=== PATIENT | male | born 1980 | race African-American/Black ===

== ENCOUNTER 2017-07-20 22:25 | Emergency (ER) | payer MEDICAID, OTHER ==
--- NOTE | 2017-07-20 22:30 | NUR ---
CALLED PT, NO RESPONSE
--- NOTE | 2017-07-20 23:30 | NUR ---
CALLED PT, NO RESPONSE
--- NOTE | 2017-07-21 | NUR ---
CALLED PT, NO RESPONSE
--- NOTE | 2017-07-21 00:18 | NUR ---
CALLED PT, NO RESPONSE
--- NOTE | 2017-07-21 00:22 | NUR ---
PATIENT STATES HE DOESNT NOT WANT TO BE SEEN BY OUR ER, AND DOESNT NOT WANT MEDICAL TREATMENT. PT WAS THEN ASKED TO LEAVE [facility] ED.
== END 2017-07-21 00:26 | disposition left against medical advice (07) ==
LOC: ER 22:27
DX: Z53.21 Procedure and treatment not carried out due to patient leaving prior to being seen by health care provider (principal)

== ENCOUNTER 2017-07-21 00:32 | Emergency (ER) | payer MEDICAID, OTHER ==
[~2017-07-21] VITALS: Ht 170.2 cm; Wt 77.1 kg
[2017-07-21] MEDS ORDERED: ACETAMINOPHEN ES 500 MG TABLET ONE (00:38)
[2017-07-21 00:57] VITALS: BP 135/78
[2017-07-21] MEDS ORDERED: ACETAMINOPHEN 325 MG TABLET PO ONE (01:00)
== END 2017-07-21 01:00 | disposition home or self-care (01) ==
LOC: ER 00:36
DX: G89.29 Other chronic pain (principal); F32.9 Major depressive disorder, single episode, unspecified; F41.9 Anxiety disorder, unspecified; Z59.0 Homelessness
CPT/HCPCS: 99282; A4606; Z7610

== ENCOUNTER 2018-01-21 12:03 | Inpatient (IN) | payer MEDICAID ==
[~2018-01-21] VITALS: Ht 165.1 cm; Wt 66.2 kg
--- NOTE | 2018-01-21 12:05 | NUR ---
ADIN Vera FROM [facility] FOR TAKING HALF BOTTLE OF BOTH SEROQUEL AND DILANTIN, +SI, -HI. NAD NOTED, VSS, RESP EVEN AND UNLABORED, PT WAS PUT ON MONITOR. WAITING FOR MD MATTSON.
[2018-01-21] MEDS ORDERED: ACTIVATED CHARCOAL 25 GM/120 ML TUBE ONE ×2 (12:12→12:17)
[2018-01-21 12:30] LABS: BASOPHILS # (AUTO) 0.1 /CMM (0.0-0.2); BASOPHILS % (AUTO) 2.4 % (0.0-2.0); EOSINOPHILS % (AUTO) 1.1 % (0.0-6.0); HEMATOCRIT 36 % (39-51); LYMPHOCYTES # (AUTO) 1.2 /CMM (0.8-4.8); LYMPHOCYTES % (AUTO) 35.6 % (20.0-44.0); MEAN CORPUSCULAR HEMOGLOBIN 28 PG (26.0-33.0); MEAN CORPUSCULAR HGB CONC 34 g/dl (31.0-36.0); MEAN CORPUSCULAR VOLUME 84 fL (80-96); MONOCYTES # (AUTO) 0.5 /CMM (0.1-1.30); MONOCYTES % (AUTO) 15.8 % (2.0-12.0); NEUTROPHILS # (AUTO) 1.5 /CMM (1.8-8.9); NEUTROPHILS % (AUTO) 45.1 % (43.0-81.0); PLATELET COUNT (AUTO) 313 /CMM (150-450); RDW COEFFICIENT OF VARIATION 13.5 (11.5-15.0); RED BLOOD CELL COUNT(AUTO) 4.26 MIL/uL (4.5-6.0); WHITE BLOOD COUNT (AUTO) 3.3 K/uL (4.3-11.0)
[2018-01-21] MEDS ORDERED: IV NS 0.9% 1,000 ML BAG IV ONE (12:30)
[2018-01-21] MEDS ORDERED: ACTIVATED CHARCOAL 25 GM/120 ML TUBE PO ONE (12:30)
[2018-01-21] MEDS ORDERED: PHEN100C4 PO (12:35)
[2018-01-21 12:45] LABS: INR 1.01 (0.85-1.15)
[2018-01-21 12:47] LABS: CALCIUM, SERUM 8.6 mg/dL (8.5-10.1); CARBON DIOXIDE 27 mmol/L (21-32); CHLORIDE 103 mmol/L (98-107); GLUCOSE 105 mg/dL (74-106); POTASSIUM 4.1 mmol/L (3.5-5.1); SODIUM SERUM 136 mmol/L (136-145); UREA NITROGEN, BLOOD 13 mg/dL (7-18)
[2018-01-21 12:53] LABS: ALANINE AMINOTRANSFERASE 21 U/L (12-78); ALBUMIN 3.3 g/dL (3.4-5.0); ALCOHOL, BLOOD < 3 mg/dL (0-0); ALKALINE PHOSPHATASE 60 U/L (46-116); ASPARTATE AMINOTRANSFERASE 15 U/L (15-37); BILIRUBIN,DIRECT 0.1 mg/dL (0.0-0.2); BILIRUBIN,TOTAL 0.2 mg/dL (0.2-1.0); SALICYLATE 2.8 mg/dL (2.8-20.0)
[2018-01-21 12:54] LABS: ACETAMINOPHEN < 10 ug/ml (10-30)
[2018-01-21 13:06] LABS: PHENYTOIN (DILANTIN) 2.5 ug/ml (10.0-20.0)
--- NOTE | 2018-01-21 13:19 | NUR ---
PT WILL TRY TO GIVE URINE SAMPLE AFTER IV FLUID HAS BEEN INFUSED, IN 15 MINS.
--- NOTE | 2018-01-21 13:33 | NUR ---
URINE COLLECTED SENT TO LAB
[2018-01-21 13:59] LABS: MAGNESIUM 1.8 mg/dL (1.8-2.4)
[2018-01-21] MEDS ORDERED: Z GUARD REMEDY 2 OZ OINT TP PRN (14:30)
[2018-01-21] MEDS ORDERED: ACETAMINOPHEN 325 MG TABLET PO PRN (14:30)
[2018-01-21] MEDS ORDERED: MAG HYDROX/AL HYDROX/SIMETH 30 ML UDC PO PRN (14:30)
[2018-01-21] MEDS ORDERED: ONDANSETRON HCL/PF 4 MG/2 ML VIAL IVP PRN (14:30)
[2018-01-21] MEDS ORDERED: MAGNESIUM HYDROXIDE 30 ML UDC PO PRN (14:30)
[2018-01-21 14:31] LABS: APPEARANCE,URINE Clear (CLEAR); BILIRUBIN,URINE Negative (NEGATIVE); BLOOD, URINE Negative Ery/uL (NEGATIVE); COLOR,URINE Yellow (YELLOW); KETONES,URINE Negative (NEGATIVE); LEUKOCYTE ESTERASE ,URINE Negative (NEGATIVE); NITRITE, URINE Negative (NEGATIVE); PROTEIN,URINE Negative (NEGATIVE); UGLUCOSE Negative (NEGATIVE); UROBILINOGEN,URINE 0.2 EU/dL (0.2)
--- NOTE | 2018-01-21 15:00 | NUR ---
RN/AMY REPORT ER RECEIVED REPORT FROM ER NURSE REYMUNDO ,UNDER THE CARE OF DEBBI AYON NP. ASSIGNED RESIDENT TO ROOM 113-1,WAITING TO RECEIVE THE RESIDENT
--- NOTE | 2018-01-21 15:30 | NUR ---
RN RESIDENT ADMISSION NOTES RECEIVE RESIDENT FROM ER IN BED,ABLE TO WALK WITH ASSISTANCE TO THE ROOM .RESIDENT IS LETHARGIC AND AWAKE,NOT ORIENTED TO HIMSELF AND THE SURROUNDINGS,RESIDENT IS ON ROOM AIR WITH SATURATION OF 99%. ON TELEMONITOR WITH SINUS RHYTHM OF 78 HR.IV LINE FLUSHED , PATENT. NO SIGNS OF INFECTION OR INFILTRATION NOTICED.RESPIRATION IS EVEN AND NON LABORED.PATIENT IS NPO STATUS AT THIS TIME.AWAITING FOR ADMITTING ORDERS.SAFETY MAINTAINED.CONTINUOUS MONITORING.CALL LIGHT IN REACH.
[2018-01-21 16:00] VITALS: BP 92/50
[2018-01-21] MEDS: IV D5/0.45 NACL 1,000 ML IV PRN (16:04)
--- NOTE | 2018-01-21 19:14 | NUR ---
TD/RN AM SHIFT END NOTES PATIENT IS MORE ALERT THAN WHEN HE WAS ADMITTED THIS AFTERNOON,WITH PERIODS OF CONFUSION.NO ACUTE CHANGE OF CONDITION.ONGOING IV THERAPY WITH D5 1/2 NS WITH 75CC/HR.IV LINE IS PATENT AND INTACT WITH NO SIGNS AND SYMPTOMS OF INFILTRATION.ON TELE MONITOR WITH NORMAL SINUS RHYTHM. ALL NEEDS MET. PATIENT IS ENDORSED TO PM NURSE TO CONTINUE CARE.SAFETY MAINTAINED ,BED ALARM IS ON,CALL LIGHT WITH IN REACHED.
--- NOTE | 2018-01-21 19:30 | NUR ---
AMY/RN NOTES: RECEIVED PT. IN BED SLEEPING W/ RESPIRATION EVEN AND UNLABORED. RA SAT. 96%. EASILY AROUSABLE TO NAME. ON 1:1 SITTER. ON TELE MONITOR W/ SR @ 86. PT. IS NPO STATUS. LFA G 20 PATENT AND INTACT W/ NO S/S OF INFECTION/INFILTRATION NOTED. HAS IVF OF D5 1/2 @ 75 CC/ HR. USES URINAL. CALL LIGHT W/REACH. BED ALARM ON. WILL CONTINUE TO MONITOR.
[2018-01-21 20:00] VITALS: BP 105/69
[2018-01-22] VITALS: BP 101/56
[2018-01-22 04:00] VITALS: BP 99/61
[2018-01-22] MEDS: IV D5/0.45 NACL 1,000 ML IV PRN (05:08)
[2018-01-22 05:12] LABS: BASOPHILS % (AUTO) 0.8 % (0.0-2.0); EOSINOPHILS % (AUTO) 1.1 % (0.0-6.0); HEMATOCRIT 34 % (39-51); HEMOGLOBIN 11.7 g/dL (13.5-17.5); LYMPHOCYTES # (AUTO) 1.7 /CMM (0.8-4.8); LYMPHOCYTES % (AUTO) 40.6 % (20.0-44.0); MEAN CORPUSCULAR HEMOGLOBIN 29 PG (26.0-33.0); MEAN CORPUSCULAR HGB CONC 34 g/dl (31.0-36.0); MEAN CORPUSCULAR VOLUME 84 fL (80-96); MONOCYTES # (AUTO) 0.6 /CMM (0.1-1.30); MONOCYTES % (AUTO) 14.6 % (2.0-12.0); NEUTROPHILS # (AUTO) 1.8 /CMM (1.8-8.9); NEUTROPHILS % (AUTO) 42.9 % (43.0-81.0); PLATELET COUNT (AUTO) 331 /CMM (150-450); RED BLOOD CELL COUNT(AUTO) 4.07 MIL/uL (4.5-6.0); WHITE BLOOD COUNT (AUTO) 4.3 K/uL (4.3-11.0)
[2018-01-22 05:26] LABS: CALCIUM, SERUM 7.7 mg/dL (8.5-10.1); MAGNESIUM 1.7 mg/dL (1.8-2.4); PHOSPHORUS 2.8 mg/dL (2.5-4.9); POTASSIUM 3.9 mmol/L (3.5-5.1)
--- NOTE | 2018-01-22 07:00 | NUR ---
RN NOTES RECEIVED PT ON BED, A/Ox1, ON RA , RESPIRATION EVEN AND ULBORED, ON TELE HR IN 80'S , NPO THIS AM , D51/2 NS AT 75CC/HR RUNNING VIA LFA IV SITE G 20 , SITTER AT THE BEDSIDE FOR SAFETY PRECAUTION, SR UP x3, CALL LIGHT WITHIN EASY REACH, BED LOCKED AND IN LOWEST POSITION , CONTINUE TO MONITOR.
--- NOTE | 2018-01-22 07:25 | NUR ---
RN/AMY NOTES: NOT IN ANY ACUTE RESPIRATORY DISTRESS. REPORT GIVEN TO AM NURSE FOR THERESA.
[2018-01-22 08:00] VITALS: BP 129/91
[2018-01-22] MEDS: PANTOPRAZOLE 40 MG TABLET.DR PO SCH (08:19)
[2018-01-22] MEDS ORDERED: Magnesium 1GM/D5W 100ML PREMIX 100 ML IV SCH (09:50)
[2018-01-22] MEDS: NICOTINE PATCH (7MG) 7 MG PATCH.TD24 TD SCH (10:00)
--- NOTE | 2018-01-22 10:30 | NUR ---
RN NOTES PT WANTS TO GO OUT TO SMOKE , STATED WILL LEAVE AMA IF HE DOES SMOKE, PT IS VERY AGITATED. CHELLE CASE MANAGEMENT DIRECTOR NOTIFIED, NICOTINE PATCH ORDERED . PT REFUSED NICOTINE PATCH, AND STILL WANTS TO GO OUT AND SMOKE, PT SIGNED AMA FORM AND WANTS IV SITE TO BE REMOVED, ADVISED AND EDUCATED PT REGARDING THE HOSPITAL SMOKING POLICY AND HOW IMPORTANT IS TO FOLLOW THE PLAN OF CARE . PT STILL WANTS TO LEAVE AMA. AMA FORM SIGNED BY PT .
--- NOTE | 2018-01-22 10:45 | NUR ---
RN NOTES IV SITE D/HENRI, PT PLACED ON 5150 HOLD AND AT THIS TIME , SITTER AT THE BEDSIDE FOR SAFETY PRECAUTION , CONTINUE TO MONITOR.
[2018-01-22] MEDS ORDERED: MAGNESIUM OXIDE 400 MG TABLET PO ONE (11:30)
--- NOTE | 2018-01-22 11:45 | NUR ---
SEEN BY ,MADE AWARE THAT PATIENT SEEN BY CRISIS TEAM .ADVISED TO CONTINUE THE HOLD AND WILL TRANSFER TO OTHER HOSPITAL LATER.
[2018-01-22 16:00] VITALS: BP 131/92
--- NOTE | 2018-01-22 16:26 | NUR ---
Per report patient is homeless and has no family or relatives contact. Patient is ambulatory and independent with adl's.He is currently on 5150 for suicidal ideation. Plan for BHU placement once medically clear. Addendum: 01/22/18 at 1626 by MIRANDA PAINTER RN Amended: Links added.
--- NOTE | 2018-01-22 17:45 | NUR ---
RN NOTE SMOKING CONSENT WAIVER SIGNED AND PLACED ON THE CHART ,PT WANTS TO GO OUT TO SMOKE , PT LEFT THE FLOOR TO PATIO TO SMOKE ACCOMPANIED BY SECURITY SARMIENTO AND ABBE AT THIS TIME .
--- NOTE | 2018-01-22 18:00 | NUR ---
RN NOTES PT BACK IN THE ROOM , SITTER AT THE BEDSIDE, NO DISTRESS NOTED.
--- NOTE | 2018-01-22 18:00 | NUR ---
PT. MEDICALLY CLEAR BUT NO PLACEMENT YET PER CRISIS TEAM,AWAITS [facility] PER CLIFFORD.DR. MAYO NOTIFIED WANTS TO CONTINUE HOLD.CM AWARE.PT. W/ SITTER PER PROTOCOL.
--- NOTE | 2018-01-22 19:00 | NUR ---
MS RN NOTES RECEIVE PT IN BED A/O X 1-2, NO S/S OF DISTRESS, STABLE, SAFETY MEASURES IN PLACE, CALL LIGHT WITHIN REACH, WILL CONTINUE TO MONITOR
[2018-01-22 20:00] VITALS: BP 128/74
[2018-01-23 04:00] VITALS: BP 150/74
--- NOTE | 2018-01-23 06:13 | NUR ---
MS RN CLOSING pt asleep and easily awaken, pt alert and oriented for time, place, person and situation. no seizure activity noted throughout the shift. Thought process linear. flat affect. guarded affect . he denies any hallucinations or delusions now. pt stable not in distress, kept clean and dry and comfort patient has 1:1 sitter at bedside, respirations even and unlabored. nursing care rendered, needs attended and anticipated. on low bed to ensure safety, safety measures in place will endorse to the next shift continuity of care.
--- NOTE | 2018-01-23 07:27 | NUR ---
MS RN OPENING NOTE PATIENT IS ALERT AND ORIENTED X2. NO PAIN AT THIS TIME. NO SOB OR DISTRESS NOTED. ON ROOM AIR AT 97% TOLERATING WELL. ABLE TO COMMUNICATE NEEDS. ON ROOM AIR AT 97% TOLERATING WELL. ON 5150 HOLD EFFECTIVE JANUARY 22, 2018 AT 11:59. AWAITING PLACEMENT. SITTER AT BEDSIDE FOR SAFETY. WILL CONTINUE TO MONITOR THROUGHOUT SHIFT
[2018-01-23] MEDS: PANTOPRAZOLE 40 MG TABLET.DR PO SCH (07:30)
[2018-01-23 08:00] VITALS: BP 115/77
[2018-01-23] MEDS: NICOTINE PATCH (7MG) 7 MG PATCH.TD24 TD SCH (08:30)
[2018-01-23] MEDS: QUETIAPINE FUMARATE 100 MG TABLET PO SCH ×4 (12:45→21:00)
[2018-01-23 16:00] VITALS: BP 114/62
--- NOTE | 2018-01-23 16:47 | NUR ---
MS RN NOTE SPOKE WITH ASHWIN, PHARMACY IN REGARDS TO SEROQUEL DOSE LAST GIVEN AT 1245. TIME TO BE CHANGED. 1700 DOSE NOT GIVEN DUE TO LAST TIME GIVEN. WILL INFORM CHARGE NURSE
--- NOTE | 2018-01-23 18:45 | NUR ---
MS RN CLOSING NOTE PATIENT SHOWERING AT THIS TIME. NO FACIAL GRIMACING NOTED. NO SOB OR DISTRESS NOTED PRIOR TO SHOWER. ALL DUE MEDICATIONS GIVEN ORDERED. ALL NURSING CARE NEEDS ATTENDED TO NEEDED. ABLE TO COMMUNICATE NEEDS. NO IV ACCESS. SITTER AT BEDSIDE FOR ASSISTANCE. ON 5150 HOLD. AWAITING PSYCH PLACEMENT. WILL HAVE LABS TOMORROW. WILL ENDORSE TO RESEARCH TECHNICIAN NURSE FOR THERESA
--- NOTE | 2018-01-23 19:43 | NUR ---
MS RN NOTE RECEIVED IN BED A/O X 3, TALKING TO HIMSELF. NO AGITATION OR DISCOMFORT NOTED. DENIES PAIN. PT HAS NO IV ACCESS. SITTER AT BED SIDE. SIDE RAILS UP X 2 AND CALL LIGHT WITHIN REACH. VSS. CONTINUE TO MONITOR HIM.
[2018-01-23 20:00] VITALS: BP 127/79
--- NOTE | 2018-01-23 21:30 | NUR ---
MS RN NOTE PT REFUSED SEROQUEL 100 MG PO, STATES I WAS OVERDOSES ON THIS MED SO I STILL HAVE IN ME. TRIED X 3.
[2018-01-24 04:00] VITALS: BP 114/69
--- NOTE | 2018-01-24 06:27 | NUR ---
MS RN NOTE PT IN BED ASLEEP, NO DISTRESS OR DISCOMFORT NOTED. ALL NEEDS ATTENDED. SIDE RIALS UP X 3 AND CALL LIGHT WITHIN REACH. SITTER AT BED SIDE. WILL ENDORSE TO DAY SHIFT NURSE FOR CONTINUE TO CARE.
--- NOTE | 2018-01-24 07:10 | NUR ---
ms rn initial notes Received patient in bed, asleep, head of bed elevated, no SOB or distress noted, on room air and tolerated well. Sitter at bedside for constant monitoring. No IV access MD aware. on 5150 hold. Alert and oriented x 3, verbally responsive and able to make needs known. No unusal behavior at this time. Call light with in patient reach, will continue to monitor accordingly.
[2018-01-24] MEDS: PANTOPRAZOLE 40 MG TABLET.DR PO SCH (07:50)
[2018-01-24 08:00] VITALS: BP 139/97
[2018-01-24] MEDS: QUETIAPINE FUMARATE 100 MG TABLET PO SCH ×3 (09:12→21:59)
[2018-01-24] MEDS: NICOTINE PATCH (7MG) 7 MG PATCH.TD24 TD SCH (09:12)
[2018-01-24 12:00] VITALS: BP 124/81
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
[2018-01-24 16:00] VITALS: BP 121/78
--- NOTE | 2018-01-24 19:10 | NUR ---
ms rn closing notes All needs provided, attended, and anticipated. Sitter at bedside for constant monitoring. In stable condition. Endorsed to next shift RN to continue care.
--- NOTE | 2018-01-24 20:00 | NUR ---
MS RN NOTE RECEIVED PT IN BED SITTING UP, A/O X 2-3, NO SOB, NO DISTRESS OR DISCOMFORT NOTED. DENIES SI AT THIS TIME. PT IS CALM AND COOPERATIVE. PT IS REFUSING SEROQUEL MEDS. ALL NEEDS ATTENDED. SITTER AT BED SIDE. SIDE RAILS UP X 2 AND CALL LIGHT WITHIN REACH. VSS. CONTINUE TO MONITOR HIM CLOSELY.
--- NOTE | 2018-01-24 21:24 | NUR ---
MS RN NOTE PT IN BED FALLING ASLEEP, REFUSED SEROQUEL MED. SITTER AT BED SIDE.
--- NOTE | 2018-01-24 22:01 | NUR ---
MS RN NOTE FINALLY PT TOOK SEROQUEL 200 MG PO.
--- NOTE | 2018-01-25 02:15 | NUR ---
MS RN NOTE REPORT GIVEN TO NURSE OREILLY FOR CONTINUE TO CARE.
--- NOTE | 2018-01-25 02:20 | NUR ---
RN NOTES RECEIVED REPORT FROM ANTOINE. NO APPARENT S/S OF PAIN, DISTRESS OR SOB AT THIS TIME. 1:1 SITTER AT BEDSIDE. SAFETY PRECAUTIONS IN PLACE WILL CONTINUE TO MONITOR.
--- NOTE | 2018-01-25 06:40 | NUR ---
RN CLOSING NOTES PT RESTING IN BED. 1:1 SITTER AT BEDSIDE. PT ON A 5150 HOLD. PT HAS NO IV ACCESS. MD AWARE. NO COMPLAINTS OF SOB, DISTRESS OR PAIN DURING SHIFT. SAFETY PRECAUTIONS IN PLACE. BED IN LOWEST LOCKED POSITION, X2 SIDERAILS ARE UP, AND CALL LIGHT WITHIN REACH. WILL ENDORSE TO DAY SHIFT NURSE FOR CONTINUITY OF CARE.
[2018-01-25] MEDS: PANTOPRAZOLE 40 MG TABLET.DR PO SCH (07:30)
[2018-01-25 08:00] VITALS: BP 115/75
--- NOTE | 2018-01-25 08:00 | NUR ---
ms rn received on bed,awake,alert,oriented x4.not in any form of distress, respirations even and unlabored,no sob noted, lungs are clear,abdomen soft,positive bowel sounds, denies pain at this time, will monitor patient.
[2018-01-25] MEDS: NICOTINE PATCH (7MG) 7 MG PATCH.TD24 TD SCH (09:00)
[2018-01-25] MEDS: QUETIAPINE FUMARATE 100 MG TABLET PO SCH ×2 (09:18→22:21)
--- NOTE | 2018-01-25 11:33 | NUR ---
BRITTON contacted [facility] intake dept and spoke to Flower who informed they had no beds available at this time. BRITTON then contacted [facility] and spoke to Dre who informed they had no beds available at this time. BRITTON contacted Dr. Ayala to assist with possible placement at [facility]. Dr. Ayala informed BRITTON to contact Chichi at [facility]. BRITTON call Chichi in intake and was informed by her to fax clinicals. She informed they have no beds at this time but will be having a few discharges later this afternoon. BRITTON faxed clinicals to Chichi in intake at .
[2018-01-25] MEDS ORDERED: MAGNESIUM OXIDE 400 MG TABLET PO ONE (15:30)
--- NOTE | 2018-01-25 15:30 | NUR ---
BRITTON received a call from Chichi in intake from [facility] informing BRITTON that their director wants to wait till we have a PC hearing to accept the pt. BRITTON had called [facility]ORIE Ford this am requesting for a PC hearing. LORIE Ford stated she will follow up and contact AMY. BRITTON gave her pt's name and room number. BRITTON spoke to Flip in intake at [facility] and faxed clinicals per his request.
[2018-01-25 16:00] VITALS: BP 117/68
--- NOTE | 2018-01-25 17:51 | NUR ---
PATIENT AWAKE,ALERT,VSS,NO SEIZURE ACTIVITY.
--- NOTE | 2018-01-25 18:50 | NUR ---
ms rn on bed,no change of condition.
[2018-01-25 20:00] VITALS: BP 117/84
--- NOTE | 2018-01-25 20:00 | NUR ---
ms/rn notes PATIENT WITH SITTER, RESTING IN BED, AWAKE, ALERT X3, ABLE TO VERBALIZE NEEDS, RESPIRATIONS EVEN AND UNLABORED, BED IN LOCK POSITION, SKIN INTACT AND DRY, WILL MONITOR. RECEIVED ENDORSEMENT FROM AM RN FOR THERESA.
[2018-01-26] MEDS ORDERED: PHENYTOIN EXTENDED RELEASE 100 MG CAPSULE PO SCH (05:00)
--- NOTE | 2018-01-26 06:45 | NUR ---
MS/RN NOTES PATIENT IN BED, ALERT, ORIENTED X3, ABLE TO VERBALIZE NEEDS, ABLE TO SLEEP DURING THE NIGHT, REQUIRE A SITTER TO MONITOR FOR SELF HARM , NON COMPLIANT AT TIMES AND REQUIRE FREQUENT REMINDERS ABOUT BENEFIT AND RISKS OF MEDICATION COMPLIANCE, WILL ENDORSE TO AM RN FOR THERESA. BED IN LOCK POSITION, CALL LIGHTS WITHIN REACH.
--- NOTE | 2018-01-26 07:10 | NUR ---
MS RN NOTES RECEIVED PATIENT IN BED, ALERT ORIENTED X4, SITTER AT BEDSIDE. NO ACUTE DISTRESS NOTED. BREATHING UNLABORED. DENIED ANY PAIN. NO SUICIDAL IDEATION. SAFETY MEASURES IN PLACE. CALL LIGHT WITHIN REACH. WILL CONTINUE TO MONITOR ACCORDINGLY.
[2018-01-26] MEDS: PANTOPRAZOLE 40 MG TABLET.DR PO SCH (07:30)
[2018-01-26] MEDS: QUETIAPINE FUMARATE 100 MG TABLET PO SCH (08:10)
[2018-01-26] MEDS: NICOTINE PATCH (7MG) 7 MG PATCH.TD24 TD SCH (08:12)
--- NOTE | 2018-01-26 09:52 | NUR ---
BRITTON met with pt. bedside. Pt. is pleasant and cooperative with SW. SW offered pt. homeless halfway placement, however, pt. declined. Pt. did accept the following Homeless resources: Food resources to [employer] located at [address]. [place] ; [facility] Show Operations Supervisor at [address] ; . Family Housing at [address]. , [employer] [facility] located at [address] [place] [address]; [employer] [facility] located at [address] . Homeless Patient waiver form was signed by patient and placed in the chart. Pt. will require bus tokens upon discharge. BRITTON updated AMY CRN Denise regarding pt's discharge plan and pt. needing bus tokens upon discharge. No other social service needs are required at this time. SW is available, if needed.
--- NOTE | 2018-01-26 10:28 | NUR ---
PATIENT WAS CLEARED BY PSYCHIATRIST,MEDICALLY CLEARED,PRINTED CIRCUIT BOARD PANELS PLATER PROVIDED WAIVER FORM,PATIENT AWAKE ,ALERT, NO SUICIDAL IDEATION.
--- NOTE | 2018-01-26 12:15 | NUR ---
SPECIAL EDUCATION SCIENCE TEACHER NOTES PATIENT DISCHARGED WITH STABLE VITAL SIGNS. NO ACUTE DISTRESS NOTED. BREATHING UNLABORED. DISCHARGE INSTRUCTIONS GIVEN TO THE PATIENT INCLUDING NEW PRESCRIPTION, VERBALIZED UNDERSTANDING. ALL BELONGINGS ACCOUNTED FOR INCLUDING HOME MEDICATIONS. ASSISTED TO THE LOBBY. BUS TOKEN GIVEN TO THE PATIENT.
[2018-01-26] MEDS ORDERED: QUETIAPINE FUMARATE 100 MG TABLET PO SCH (21:00)
== END 2018-01-26 12:18 | disposition home or self-care (01) | DRG 812 ==
LOC: ER 12:08 → TELE-TD 14:41 → MEDSG1 01-22 10:51
PROVIDERS: ADMIT Registered Nurse; ATTEND Registered Nurse
DX: T42.0X2A Poisoning by hydantoin derivatives, intentional self-harm, initial encounter (principal); F33.3 Major depressive disorder, recurrent, severe with psychotic symptoms; E83.42 Hypomagnesemia; Z59.0 Homelessness; G40.909 Epilepsy, unspecified, not intractable, without status epilepticus; F41.9 Anxiety disorder, unspecified; Y92.9 Unspecified place or not applicable; F19.10 Other psychoactive substance abuse, uncomplicated
CPT/HCPCS: 36415; 71045-TC; 80048-TC; 80076-TC; 80185-TC; 80305; 81000-TC; 83735-TC; 84100-TC; 85025-TC; 85730-TC; 87081-TC; A4606; G0480; J3490; J7030; Z7610

== ENCOUNTER 2018-01-27 06:33 | Emergency (ER) | payer MEDICAID ==
[~2018-01-27] VITALS: Ht 172.7 cm; Wt 68.0 kg
--- NOTE | 2018-01-27 06:55 | NUR ---
PT BB SELF C/O SI THOUGHTS. PT STATES " I'VE BEEN OFF OF MY PSYCH MEDS FOR 5 DAYS AND NOW I AM SUICIDAL, I AM GOING TO JUMP OFF A BRIDGE". PT STATES + TO HEARING VOICES. PT IS AAOX4. RESP EVEN AND UNLABORED. SKIN WNL. NO S/S OF DISTRESS NOTED. VSS. SI PRECAUTIONS IN PLACE. AWAITING MD FOR EVAL.
--- NOTE | 2018-01-27 06:59 | NUR ---
BEDSIDE FOR EVAL.
[2018-01-27 07:08] LABS: APPEARANCE,URINE CLEAR (CLEAR); BILIRUBIN,URINE NEGATIVE (NEGATIVE); BLOOD, URINE TRACE-INTA Ery/uL (NEGATIVE); COLOR,URINE YELLOW (YELLOW); KETONES,URINE NEGATIVE (NEGATIVE); LEUKOCYTE ESTERASE ,URINE NEGATIVE (NEGATIVE); NITRITE, URINE NEGATIVE (NEGATIVE); PROTEIN,URINE NEGATIVE (NEGATIVE); UGLUCOSE NEGATIVE (NEGATIVE); UROBILINOGEN,URINE 0.2 EU/dL (0.2)
--- NOTE | 2018-01-27 07:24 | NUR ---
REPORT GIVEN TO BRITTNEY SANCHEZ FOR THERESA.
[2018-01-27 07:25] LABS: BACTERIA,URINE Rare /HPF (None Seen); SPERM,URINE Few /HPF (None Seen); SQUAMOUS EPITHELIAL CELL,UR Rare /HPF (None Seen); WBC,URINE 0-2 /HPF (0-3)
[2018-01-27 07:34] LABS: BASOPHILS # (AUTO) 0.1 /CMM (0.0-0.2); BASOPHILS % (AUTO) 1.5 % (0.0-2.0); EOSINOPHILS % (AUTO) 1.7 % (0.0-6.0); HEMATOCRIT 36 % (39-51); HEMOGLOBIN 12.2 g/dL (13.5-17.5); LYMPHOCYTES # (AUTO) 1.7 /CMM (0.8-4.8); LYMPHOCYTES % (AUTO) 38.2 % (20.0-44.0); MEAN CORPUSCULAR HGB CONC 34 g/dl (31.0-36.0); MEAN CORPUSCULAR VOLUME 85 fL (80-96); MONOCYTES # (AUTO) 0.6 /CMM (0.1-1.30); MONOCYTES % (AUTO) 13.3 % (2.0-12.0); NEUTROPHILS # (AUTO) 1.8 /CMM (1.8-8.9); NEUTROPHILS % (AUTO) 45.3 % (43.0-81.0); PLATELET COUNT (AUTO) 386 /CMM (150-450); RED BLOOD CELL COUNT(AUTO) 4.26 MIL/uL (4.5-6.0); WHITE BLOOD COUNT (AUTO) 4.3 K/uL (4.3-11.0)
[2018-01-27 07:39] LABS: CALCIUM, SERUM 8.6 mg/dL (8.5-10.1); CARBON DIOXIDE 30 mmol/L (21-32); CHLORIDE 103 mmol/L (98-107); CREATININE 1.1 mg/dL (0.6-1.3); GLUCOSE 96 mg/dL (74-106); POTASSIUM 3.9 mmol/L (3.5-5.1); SODIUM SERUM 137 mmol/L (136-145); UREA NITROGEN, BLOOD 18 mg/dL (7-18)
[2018-01-27 07:43] LABS: ALANINE AMINOTRANSFERASE 24 U/L (12-78); ALBUMIN 3.3 g/dL (3.4-5.0); ALCOHOL, BLOOD < 3 mg/dL (0-0); ALKALINE PHOSPHATASE 67 U/L (46-116); ASPARTATE AMINOTRANSFERASE 15 U/L (15-37); BILIRUBIN,TOTAL 0.1 mg/dL (0.2-1.0); SALICYLATE 2.9 mg/dL (2.8-20.0)
[2018-01-27 07:45] LABS: ACETAMINOPHEN 0 ug/ml (10-30)
--- NOTE | 2018-01-27 09:32 | NUR ---
CALLED ART [phone]
--- NOTE | 2018-01-27 11:03 | NUR ---
ART AT BEDSIDE FOR PSYCH EVAL
--- NOTE | 2018-01-27 11:03 | NUR ---
CALLED FOR FOOD TRAY
--- NOTE | 2018-01-27 13:20 | NUR ---
REPORT GIVEN TO PASCUAL MONZON AT [facility].
--- NOTE | 2018-01-27 13:21 | NUR ---
CALLED MINDA TO ARRANGE A BLS TRANSPORT TO [facility]. SPOKE WITH DISPATCHER BOUBACAR AND WAS GIVEN AN ETA DIRECTOR OF SUSTAINABILITY TIME OF 1400. TRIP #: [id number]
[2018-01-27 14:18] VITALS: BP 126/80
== END 2018-01-27 14:20 ==
LOC: ER 06:37
DX: F31.9 Bipolar disorder, unspecified (principal); F20.9 Schizophrenia, unspecified; Z59.0 Homelessness
CPT/HCPCS: 36415; 80048-TC; 80076-TC; 80305; 81000-TC; 85025-TC; A4606; G0480; Z7610

== ENCOUNTER 2018-02-12 22:20 | Emergency (ER) | payer MEDICAID ==
[~2018-02-12] VITALS: Ht 162.6 cm; Wt 66.7 kg
[2018-02-12 22:55] LABS: BASOPHILS % (AUTO) 0.8 % (0.0-2.0); EOSINOPHILS % (AUTO) 0.9 % (0.0-6.0); HEMATOCRIT 36 % (39-51); LYMPHOCYTES # (AUTO) 1.6 /CMM (0.8-4.8); MEAN CORPUSCULAR HGB CONC 34 g/dl (31.0-36.0); MEAN CORPUSCULAR VOLUME 85 fL (80-96); MONOCYTES # (AUTO) 0.8 /CMM (0.1-1.30); MONOCYTES % (AUTO) 12.4 % (2.0-12.0); NEUTROPHILS # (AUTO) 3.7 /CMM (1.8-8.9); NEUTROPHILS % (AUTO) 59.9 % (43.0-81.0); PLATELET COUNT (AUTO) 326 /CMM (150-450); RDW COEFFICIENT OF VARIATION 14.8 (11.5-15.0); RED BLOOD CELL COUNT(AUTO) 4.18 MIL/uL (4.5-6.0); WHITE BLOOD COUNT (AUTO) 6.2 K/uL (4.3-11.0)
[2018-02-12 23:03] LABS: APPEARANCE,URINE CLEAR (CLEAR); BILIRUBIN,URINE NEGATIVE (NEGATIVE); BLOOD, URINE NEGATIVE Ery/uL (NEGATIVE); COLOR,URINE YELLOW (YELLOW); KETONES,URINE 1+ (NEGATIVE); LEUKOCYTE ESTERASE ,URINE NEGATIVE (NEGATIVE); NITRITE, URINE NEGATIVE (NEGATIVE); PH,URINE 6.5 (5.0-8.0); PROTEIN,URINE NEGATIVE (NEGATIVE); UGLUCOSE NEGATIVE (NEGATIVE); UROBILINOGEN,URINE 0.2 EU/dL (0.2)
[2018-02-12 23:13] LABS: CALCIUM, SERUM 9.3 mg/dL (8.5-10.1); CARBON DIOXIDE 31 mmol/L (21-32); CHLORIDE 101 mmol/L (98-107); CREATININE 1.2 mg/dL (0.6-1.3); GLUCOSE 113 mg/dL (74-106); POTASSIUM 3.6 mmol/L (3.5-5.1); SODIUM SERUM 135 mmol/L (136-145); UREA NITROGEN, BLOOD 12 mg/dL (7-18)
[2018-02-12 23:24] LABS: ALANINE AMINOTRANSFERASE 25 U/L (12-78); ALBUMIN 3.9 g/dL (3.4-5.0); ALCOHOL, BLOOD < 3 mg/dL (0-0); ALKALINE PHOSPHATASE 74 U/L (46-116); ASPARTATE AMINOTRANSFERASE 30 U/L (15-37); BILIRUBIN,DIRECT 0.1 mg/dL (0.0-0.2); BILIRUBIN,TOTAL 0.5 mg/dL (0.2-1.0)
[2018-02-12 23:25] LABS: BACTERIA,URINE None seen /HPF (None Seen); RBC,URINE NONE SEEN /HPF (0-2); SQUAMOUS EPITHELIAL CELL,UR Few /HPF (None Seen); WBC,URINE 0-2 /HPF (0-3)
[2018-02-12 23:25] LABS: ACETAMINOPHEN 0 ug/ml (10-30); SALICYLATE 2.5 mg/dL (2.8-20.0)
--- NOTE | 2018-02-12 23:45 | NUR ---
PT BIB SELF, PT STATES HE FEELS SUICIDAL BUT FORGOT HOW HE WANTS TO HURT himself. -hi. pt is aaox4. resp even and unlabored. no s/s of acute distress noted. skin wnl. vss. pt safety and comfort measures in place. pt placed on monitor and pox. SI precautions in place. awaiting md for eval.
--- NOTE | 2018-02-13 | NUR ---
ART SYSTEM SPECIALIST WAS CALLED
--- NOTE | 2018-02-13 00:30 | NUR ---
adalid berger bedside for eval.
[2018-02-13 01:23] VITALS: BP 122/73
== END 2018-02-13 01:24 | disposition home or self-care (01) ==
LOC: ER 22:23
DX: F19.10 Other psychoactive substance abuse, uncomplicated (principal); R45.851 Suicidal ideations; G40.909 Epilepsy, unspecified, not intractable, without status epilepticus; F20.9 Schizophrenia, unspecified; F32.9 Major depressive disorder, single episode, unspecified; Z59.0 Homelessness
CPT/HCPCS: 36415; 80048-TC; 80076-TC; 80305; 81000-TC; 85025-TC; G0480

== ENCOUNTER 2018-02-22 22:42 | Emergency (ER) | payer MEDICAID ==
[~2018-02-22] VITALS: Ht 165.1 cm; Wt 65.8 kg
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
[2018-02-22 23:44] LABS: BASOPHILS # (AUTO) 0.1 /CMM (0.0-0.2); BASOPHILS % (AUTO) 1.2 % (0.0-2.0); EOSINOPHILS % (AUTO) 0.8 % (0.0-6.0); HEMATOCRIT 41 % (39-51); HEMOGLOBIN 13.9 g/dL (13.5-17.5); LYMPHOCYTES # (AUTO) 2.3 /CMM (0.8-4.8); LYMPHOCYTES % (AUTO) 39.8 % (20.0-44.0); MEAN CORPUSCULAR HGB CONC 34 g/dl (31.0-36.0); MEAN CORPUSCULAR VOLUME 85 fL (80-96); MONOCYTES # (AUTO) 0.6 /CMM (0.1-1.30); MONOCYTES % (AUTO) 10.8 % (2.0-12.0); NEUTROPHILS # (AUTO) 2.7 /CMM (1.8-8.9); NEUTROPHILS % (AUTO) 47.4 % (43.0-81.0); PLATELET COUNT (AUTO) 381 /CMM (150-450); RDW COEFFICIENT OF VARIATION 14.4 (11.5-15.0); RED BLOOD CELL COUNT(AUTO) 4.77 MIL/uL (4.5-6.0); WHITE BLOOD COUNT (AUTO) 5.7 K/uL (4.3-11.0)
[2018-02-22 23:58] LABS: CALCIUM, SERUM 9.2 mg/dL (8.5-10.1); CARBON DIOXIDE 29 mmol/L (21-32); CHLORIDE 101 mmol/L (98-107); CREATININE 1.2 mg/dL (0.6-1.3); GLUCOSE 95 mg/dL (74-106); POTASSIUM 3.7 mmol/L (3.5-5.1); SODIUM SERUM 138 mmol/L (136-145); UREA NITROGEN, BLOOD 12 mg/dL (7-18)
[2018-02-23 00:04] LABS: ALANINE AMINOTRANSFERASE 21 U/L (12-78); ALBUMIN 4.1 g/dL (3.4-5.0); ALCOHOL, BLOOD < 3 mg/dL (0-0); ALKALINE PHOSPHATASE 68 U/L (46-116); ASPARTATE AMINOTRANSFERASE 16 U/L (15-37); BILIRUBIN,DIRECT 0.1 mg/dL (0.0-0.2); BILIRUBIN,TOTAL 0.4 mg/dL (0.2-1.0); SALICYLATE 3.4 mg/dL (2.8-20.0); TOTAL PROTEIN, SERUM 9.6 g/dL (6.4-8.2)
[2018-02-23 00:05] LABS: ACETAMINOPHEN 0 ug/ml (10-30)
[2018-02-23 00:09] LABS: THYROID STIMULATING HORMONE 1.531 uIU/mL (0.358-3.74)
--- NOTE | 2018-02-23 01:50 | NUR ---
PT ACCEPTED TO [facility] BY DR ALMODOVAR.
--- NOTE | 2018-02-23 02:10 | NUR ---
REPORT GIVEN TO TRISHA LUGO FOR CONTINUATION OF CARE.
--- NOTE | 2018-02-23 02:15 | NUR ---
MINDA AT BEDSIDE FOR TRANSPORT TO [facility] FOR REHAB MEDICINE.
[2018-02-23 02:21] VITALS: BP 135/70
== END 2018-02-23 02:22 | disposition home or self-care (01) ==
LOC: ER 22:48
DX: F32.9 Major depressive disorder, single episode, unspecified (principal); F15.10 Other stimulant abuse, uncomplicated; R45.851 Suicidal ideations; F19.10 Other psychoactive substance abuse, uncomplicated; Z76.5 Malingerer [conscious simulation]; G40.909 Epilepsy, unspecified, not intractable, without status epilepticus; F20.9 Schizophrenia, unspecified; Z59.0 Homelessness
CPT/HCPCS: 36415; 80048-TC; 80076-TC; 80305; 84443-TC; 85025-TC; A4606; G0480; Z7610

== ENCOUNTER 2018-06-01 02:39 | Emergency (ER) | payer MEDICAID ==
[~2018-06-01] VITALS: Ht 162.6 cm; Wt 65.3 kg
[2018-06-01] MEDS ORDERED: PENICILLIN G BENZATHINE 2.4 MMU/4 ML ML IM ONE ×2 (02:58→03:00)
[2018-06-01] MEDS ORDERED: oxyCODONE/APAP (5/325 MG) 1 UDTAB TABLET PO ONE (03:00)
--- NOTE | 2018-06-01 03:05 | NUR ---
PT BIB SELF C/O DENTAL PAIN AND SEEKING MEDICAL CLEARANCE FOR LUANNE MANZANO. NAD NOTED. RESP EVEN UNLABORED. SKIN WARM DRY. AMBULATORY STEADY GAIT. CALM BUT SOMEWHAT UNCOOPERATIVE. IN ER BED 13.
[2018-06-01] MEDS ORDERED: HYDROCODONE/APAP 5/325MG 1 EACH TABLET ONE (03:11)
--- NOTE | 2018-06-01 03:18 | NUR ---
MEDICATED PT PER VERBAL ORDER FROM MD CABRAL 5.325 NORCO ONCE PO FOR PAIN
[2018-06-01 03:20] LABS: BASOPHILS # (AUTO) 0.1 /CMM (0.0-0.2); HEMATOCRIT 42 % (39-51); HEMOGLOBIN 13.5 g/dL (13.5-17.5); LYMPHOCYTES # (AUTO) 1.6 /CMM (0.8-4.8); LYMPHOCYTES % (AUTO) 25.3 % (20.0-44.0); MEAN CORPUSCULAR HEMOGLOBIN 29 PG (26.0-33.0); MEAN CORPUSCULAR HGB CONC 32 g/dl (31.0-36.0); MEAN CORPUSCULAR VOLUME 89 fL (80-96); MONOCYTES # (AUTO) 0.6 /CMM (0.1-1.30); MONOCYTES % (AUTO) 9.3 % (2.0-12.0); NEUTROPHILS % (AUTO) 63.4 % (43.0-81.0); PLATELET COUNT (AUTO) 332 /CMM (150-450); RDW COEFFICIENT OF VARIATION 15.1 (11.5-15.0); RED BLOOD CELL COUNT(AUTO) 4.71 MIL/uL (4.5-6.0); WHITE BLOOD COUNT (AUTO) 6.2 K/uL (4.3-11.0)
[2018-06-01] MEDS ORDERED: HYDROCODONE/APAP 5/325MG 1 EACH TABLET PO ONE ×2 (03:30→04:00)
[2018-06-01 03:40] LABS: ALANINE AMINOTRANSFERASE 17 U/L (12-78); ALBUMIN 3.4 g/dL (3.4-5.0); ALCOHOL, BLOOD < 3 mg/dL (0-0); ALKALINE PHOSPHATASE 56 U/L (46-116); ASPARTATE AMINOTRANSFERASE 16 U/L (15-37); BILIRUBIN,DIRECT 0.1 mg/dL (0.0-0.2); BILIRUBIN,TOTAL 0.4 mg/dL (0.2-1.0); CALCIUM, SERUM 7.9 mg/dL (8.5-10.1); CARBON DIOXIDE 29 mmol/L (21-32); CHLORIDE 103 mmol/L (98-107); CREATININE 1.2 mg/dL (0.6-1.3); GLUCOSE 92 mg/dL (74-106); POTASSIUM 3.4 mmol/L (3.5-5.1); SALICYLATE 2.8 mg/dL (2.8-20.0); SODIUM SERUM 137 mmol/L (136-145); UREA NITROGEN, BLOOD 8 mg/dL (7-18)
[2018-06-01 03:54] LABS: ACETAMINOPHEN 0 ug/ml (10-30)
[2018-06-01 05:00] VITALS: BP 134/68
--- NOTE | 2018-06-01 05:23 | NUR ---
PT ASLEEP, RESTING QUIETLY, NAD NOTED.
--- NOTE | 2018-06-01 08:14 | NUR ---
CALLED ADOLFO LUGO FOR PSYCH EVAL
--- NOTE | 2018-06-01 10:26 | NUR ---
Psych eval done, cleared for d/c.Patient discharged to home in stable condition. Written and verbal after care instructions given. Patient verbalizes understanding of instruction.
== END 2018-06-01 10:28 | disposition home or self-care (01) ==
LOC: ER 02:39
DX: F32.9 Major depressive disorder, single episode, unspecified (principal); F19.10 Other psychoactive substance abuse, uncomplicated; F17.200 Nicotine dependence, unspecified, uncomplicated; F15.10 Other stimulant abuse, uncomplicated; K08.89 Other specified disorders of teeth and supporting structures; F20.9 Schizophrenia, unspecified; Z59.0 Homelessness
CPT/HCPCS: 36415; 80048; 80076; 80305; 80329; 85025; 96372; 99284; 99406; A4606; G0480 ×2; J0558; Z7610

== ENCOUNTER 2018-06-23 00:59 | Emergency (ER) | payer MEDICAID ==
[~2018-06-23] VITALS: Ht 162.6 cm; Wt 63.5 kg
[2018-06-23 01:09] VITALS: BP 118/87
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
--- NOTE | 2018-06-23 01:17 | NUR ---
MD AT BEDSIDE FOR EVALUATION
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
== END 2018-06-23 05:58 | disposition home or self-care (01) ==
LOC: ER 01:03
DX: S40.211A Abrasion of right shoulder, initial encounter (principal); M79.604 Pain in right leg; F20.9 Schizophrenia, unspecified; F31.9 Bipolar disorder, unspecified; R56.9 Unspecified convulsions; F17.200 Nicotine dependence, unspecified, uncomplicated; Z59.0 Homelessness; V13.4XXA Pedal cycle driver injured in collision with car, pick-up truck or van in traffic accident, initial encounter; Y93.89 Activity, other specified; Y92.410 Unspecified street and highway as the place of occurrence of the external cause; Y99.8 Other external cause status
CPT/HCPCS: 99282; A4606; A6402 ×2; Z7610

== ENCOUNTER 2019-04-29 20:55 | Emergency (ER) | payer MEDICAID ==
[~2019-04-29] VITALS: Ht 165.1 cm; Wt 63.5 kg
--- NOTE | 2019-04-29 21:36 | NUR ---
CALLED PT. NO RESPONSE.
[2019-04-29 22:53] LABS: APPEARANCE,URINE Clear (CLEAR); BILIRUBIN,URINE Negative (NEGATIVE); BLOOD, URINE Trace-lysed Ery/uL (NEGATIVE); COLOR,URINE Yellow (YELLOW); KETONES,URINE Trace (NEGATIVE); LEUKOCYTE ESTERASE ,URINE Negative (NEGATIVE); NITRITE, URINE Negative (NEGATIVE); PH,URINE 5.5 (5.0-8.0); PROTEIN,URINE Trace mg/dl (NEGATIVE); UGLUCOSE Negative (NEGATIVE); UROBILINOGEN,URINE 0.2 EU/dL (0.2)
--- NOTE | 2019-04-29 22:55 | NUR ---
BIBS. C/O "HAVING SUICIDAL IDEATION, WANT TO RUN INTO TRAFFIC" -SOB AOX4. VSS. AMBULATORY
[2019-04-29 23:03] LABS: BACTERIA,URINE Rare /HPF (None Seen); SQUAMOUS EPITHELIAL CELL,UR Few /HPF (None Seen); WBC,URINE NONE SEEN /HPF (0-3)
[2019-04-29 23:09] LABS: BASOPHILS # (AUTO) 0.1 /CMM (0.0-0.2); BASOPHILS % (AUTO) 0.7 % (0.0-2.0); EOSINOPHILS % (AUTO) 0.4 % (0.0-6.0); HEMATOCRIT 37 % (39-51); HEMOGLOBIN 12.7 g/dL (13.5-17.5); LYMPHOCYTES # (AUTO) 2.3 /CMM (0.8-4.8); LYMPHOCYTES % (AUTO) 25.1 % (20.0-44.0); MEAN CORPUSCULAR HGB CONC 34 g/dl (31.0-36.0); MEAN CORPUSCULAR VOLUME 86 fL (80-96); MONOCYTES # (AUTO) 0.9 /CMM (0.1-1.30); MONOCYTES % (AUTO) 10.1 % (2.0-12.0); NEUTROPHILS # (AUTO) 5.7 /CMM (1.8-8.9); NEUTROPHILS % (AUTO) 63.7 % (43.0-81.0); PLATELET COUNT (AUTO) 318 /CMM (150-450); RED BLOOD CELL COUNT(AUTO) 4.35 MIL/uL (4.5-6.0)
[2019-04-29 23:14] LABS: CALCIUM, SERUM 8.8 mg/dL (8.5-10.1); CARBON DIOXIDE 28 mmol/L (21-32); CHLORIDE 98 mmol/L (98-107); CREATININE 1.4 mg/dL (0.6-1.3); GLUCOSE 87 mg/dL (74-106); POTASSIUM 3.8 mmol/L (3.5-5.1); SODIUM SERUM 135 mmol/L (136-145); UREA NITROGEN, BLOOD 23 mg/dL (7-18)
[2019-04-29 23:21] LABS: ACETAMINOPHEN < 2 ug/ml (10-30); ALANINE AMINOTRANSFERASE 25 U/L (12-78); ALBUMIN 3.8 g/dL (3.4-5.0); ALCOHOL, BLOOD < 3 mg/dL (0-0); ALKALINE PHOSPHATASE 77 U/L (46-116); ASPARTATE AMINOTRANSFERASE 27 U/L (15-37); BILIRUBIN,DIRECT 0.2 mg/dL (0.0-0.2); BILIRUBIN,TOTAL 0.7 mg/dL (0.2-1.0); SALICYLATE 2.3 mg/dL (2.8-20.0); TOTAL PROTEIN, SERUM 9.7 g/dL (6.4-8.2)
--- NOTE | 2019-04-30 02:20 | NUR ---
Mikael crisis team at bedside for eval.
--- NOTE | 2019-04-30 04:44 | NUR ---
PT USED RESTROOM WITH ASSISTANCE. DIRECTOR [employer] MARKETING AT BEDSIDE. NO DISTRESS AT THIS TIME. VSS.
--- NOTE | 2019-04-30 06:45 | NUR ---
Patient is resting comfortably in bed with eyes closed. Easily aroused. VSS
--- NOTE | 2019-04-30 07:43 | NUR ---
Patient given written and verbal discharge instructions. Patient verbalizes understanding of instructions. Patient is ambulatory with steady gait. Refuses offer of [facility] placement. Patient given list of available shelters in surrounding area. left with appropriate clothes, tap card, and food provided. In no apparent distress noted.
[2019-04-30 07:44] VITALS: BP 135/81
== END 2019-04-30 07:43 | disposition home or self-care (01) ==
LOC: ER 20:55
DX: R45.851 Suicidal ideations (principal); F32.9 Major depressive disorder, single episode, unspecified; F17.200 Nicotine dependence, unspecified, uncomplicated; Z59.0 Homelessness
CPT/HCPCS: 36415; 80048; 80076; 80305; 80307; 80329; 81001; 85025; 99284; G0480; 81000-TC

== ENCOUNTER 2019-06-12 00:07 | Emergency (ER) | payer MEDICAID | END 2019-06-12 01:39 | disposition left against medical advice (07) | LOC: ER 00:13 | DX: Z53.21 Procedure and treatment not carried out due to patient leaving prior to being seen by health care provider (principal) ==

== ENCOUNTER 2019-06-14 01:26 | Emergency (ER) | payer MEDICAID ==
[~2019-06-14] VITALS: Ht 163.8 cm; Wt 59.0 kg
--- NOTE | 2019-06-14 01:48 | NUR ---
TO BED 15 AMBULATORY C/O SUICIDAL IDEATION WITH PLAN TO JUMP IN FRONT OF A MOVING CAR. PT AAOX4 NO ACUTE DISTRESS NOTED, RESP EVEN AND UNLABORED. PT CALM AND COOPERATIVE AT THIS TIME. PLACE PT ON HOSPITAL GOWN, ALL BELONGINGS REMOVED FROM ROOM. SITTER AT [facility] FOR PT SAFETY.
--- NOTE | 2019-06-14 01:55 | NUR ---
TYSON COLLECTED AND SENT TO LAB.
[2019-06-14 02:38] LABS: BASOPHILS # (AUTO) 0.1 /CMM (0.0-0.2); BASOPHILS % (AUTO) 1.5 % (0.0-2.0); EOSINOPHILS % (AUTO) 2.4 % (0.0-6.0); HEMATOCRIT 34 % (39-51); HEMOGLOBIN 11.5 g/dL (13.5-17.5); LYMPHOCYTES # (AUTO) 2.4 /CMM (0.8-4.8); MEAN CORPUSCULAR HGB CONC 34 g/dl (31.0-36.0); MEAN CORPUSCULAR VOLUME 85 fL (80-96); MONOCYTES # (AUTO) 0.4 /CMM (0.1-1.30); MONOCYTES % (AUTO) 8.3 % (2.0-12.0); NEUTROPHILS # (AUTO) 2.4 /CMM (1.8-8.9); NEUTROPHILS % (AUTO) 43.8 % (43.0-81.0); PLATELET COUNT (AUTO) 293 /CMM (150-450); RED BLOOD CELL COUNT(AUTO) 4.01 MIL/uL (4.5-6.0); WHITE BLOOD COUNT (AUTO) 5.4 K/uL (4.3-11.0)
--- NOTE | 2019-06-14 02:46 | NUR ---
NO BEDS AVAILABLE AT [facility], [facility], OR [facility] AT THIS TIME.
[2019-06-14 02:49] LABS: ALANINE AMINOTRANSFERASE 15 U/L (12-78); ALCOHOL, BLOOD < 3 mg/dL (0-0); ALKALINE PHOSPHATASE 67 U/L (46-116); ASPARTATE AMINOTRANSFERASE 17 U/L (15-37); BILIRUBIN,DIRECT 0.1 mg/dL (0.0-0.2); BILIRUBIN,TOTAL 0.3 mg/dL (0.2-1.0); CALCIUM, SERUM 8.1 mg/dL (8.5-10.1); CARBON DIOXIDE 28 mmol/L (21-32); CHLORIDE 102 mmol/L (98-107); CREATININE 1.1 mg/dL (0.6-1.3); GLUCOSE 106 mg/dL (74-106); POTASSIUM 3.3 mmol/L (3.5-5.1); SODIUM SERUM 139 mmol/L (136-145); UREA NITROGEN, BLOOD 9 mg/dL (7-18)
[2019-06-14 03:04] LABS: ACETAMINOPHEN 0 ug/ml (10-30); SALICYLATE 1.4 mg/dL (2.8-20.0)
--- NOTE | 2019-06-14 05:25 | NUR ---
PT RESTING COMFORTABLY IN BED. VITALS SIGNS STABLE. SITTER AT BEDSIDE. WILL CONTINUE TO MONITOR
--- NOTE | 2019-06-14 08:10 | NUR ---
BRITTON faxed clinical referral packet to [facility] for voluntary psychiatric admission.
--- NOTE | 2019-06-14 08:15 | NUR ---
Social service consult requested by Dr. Curtis for suicidal ideations with a plan. Pt. is wanting voluntary psychiatric admission. Pt. is a 38 year old -[place] male who presented to [facility] ED with complaints of suicidal ideation with a plan to jump in front of a moving car. BRITTON met with pt. bedside. Pt. is alert and oriented x 4. Pt. is hostile and not very forthcoming in answering questions. Pt. states he has been homeless for several years. Pt. receives GR and food stamps monthly. Pt. has had psychiatric hospitalizations in the past. Pt. is currently suicidal with a plan to jump in front of a moving car. Pt. has a psychiatric diagnosis of Schizophrenia, Bipolar and Depression. Pt. denies any alcohol use. Pt. states he smokes marijuana daily. Pt. is a cigarette smoker. SW to refer pt. to [place] for voluntary psychiatric admission since Annika at [facility] informed SW pt. is on their "do not admit list" and cannot be accepted there. BRITTON called Lynn in intake at [place] who informed they will have discharges after 10AM this morning and to fax clinicals to .
--- NOTE | 2019-06-14 08:20 | NUR ---
BRITTON faxed clinical referral packet to Lynn in intake at [place] .
--- NOTE | 2019-06-14 08:26 | NUR ---
received a call from [facility]. Patient will be accepted to [facility] once bed available.
--- NOTE | 2019-06-14 10:40 | NUR ---
patient resting in bed, in no apparent distress, food tray provided.
--- NOTE | 2019-06-14 11:13 | NUR ---
BRITTON called Juan in intake at [place] to follow up regarding bed availability. Juan informed SW they will have beds in the next few hours. SW to follow up then. BRITTON updated ED CRN Russ with aforementioned information.
--- NOTE | 2019-06-14 13:04 | NUR ---
BRITTON called Juan in intake at [place] to follow up regarding bed availability. Juna informed BRITTON there are no discharges as of yet but his low raw sugar cutter has been informed regarding accepting the pt. He will call BRITTON once a bed is available. Juan eid they will have a bed available today.
--- NOTE | 2019-06-14 14:13 | NUR ---
patient verbalized "i am not suicidal" i cant wait anymore for bed available at [facility]. kelli gordon service will come down and talk to the patient.
--- NOTE | 2019-06-14 14:22 | NUR ---
BRITTON received a call from pt's RN Russ informing SW that pt. is stating he is no longer suicidal and wants to leave. BRITTON and BRITTNEY Solano met with pt. bedside. Pt. is alert and oriented x 4. Pt. appears to be in a better mood than this morning and is cooperative with SW. Pt is denying suicidal and homicidal ideations and visual and auditory hallucinations at this time. Pt.states he would like his clothes and a TAP card. BRITTON offered pt. detention placement, however pt. declined. Pt. does not have a psychiatrist and SW encouraged pt. to go to [facility] or one of the mental health clinics on the list provided to the pt. Pt. was provided with the following homeless detention and resources: [facility] located at [facility] ; [facility], [address] [place] [address], [place] ; [facility] [place], [address] [facility], [place] ; [facility] [facility] [place] which includes food stamps, transitional housing, showers and hot meals etc; Mental Health clinics such as [facility] ; [facility] ; Health clinics;[facility] and Alcohol treatment centers such as [facility] [place], ; [facility]stance [facility] and [facility] . Homeless Patient Waiver Form was signed by the pt. and placed in pt's chart. Pt. was provided with his clothing and TAP card. Dr. Holt was notified of pt's discharge plan.
--- NOTE | 2019-06-14 14:29 | NUR ---
BRITTON contacted Juan in intake at [place] and informed him that pt. is no longer wanting voluntary hospitalization and is not suicidal.
--- NOTE | 2019-06-14 14:49 | NUR ---
Patient given written and verbal discharge instructions. Patient verbalizes understanding of instructions. Patient is ambulatory with steady gait. Refuses offer of group home placement. Patient given list of available shelters in surrounding area. food and tap card provided. Patient left with an appropriate clothing. in no apparent distress.
[2019-06-14 14:50] VITALS: BP 125/88
== END 2019-06-14 14:49 | disposition home or self-care (01) ==
LOC: ER 01:29
DX: R45.851 Suicidal ideations (principal); F17.200 Nicotine dependence, unspecified, uncomplicated; Z59.0 Homelessness
CPT/HCPCS: 36415; 80048; 80076; 80307; 80329; 85025; 99284; G0480

== ENCOUNTER 2019-07-05 20:03 | Emergency (ER) | payer MEDICAID ==
[~2019-07-05] VITALS: Ht 163.8 cm; Wt 63.5 kg
--- NOTE | 2019-07-05 20:10 | NUR ---
URINE SAMPLE COLLECTED AND SENT TO LAB.
[2019-07-05 20:18] VITALS: BP 125/93
--- NOTE | 2019-07-05 20:18 | NUR ---
PRESENTED TO THE ER W/ C/O DEPRESSION, SUICIDAL WITH PLAN TO JUMP IN FRONT OF A MOVING CAR. ADMITS TO SMOKING MARIJUANA TODAY, DENIES ANY OTHER DRUGS. DENIES HI. VSS. WILL CONT TO MONITOR.
[2019-07-05 20:26] LABS: BASOPHILS # (AUTO) 0.1 /CMM (0.0-0.2); LYMPHOCYTES # (AUTO) 2.2 /CMM (0.8-4.8)
[2019-07-05 20:29] LABS: APPEARANCE,URINE Clear (CLEAR); BILIRUBIN,URINE Negative (NEGATIVE); BLOOD, URINE Trace-lysed Ery/uL (NEGATIVE); COLOR,URINE Yellow (YELLOW); KETONES,URINE 15 (NEGATIVE); LEUKOCYTE ESTERASE ,URINE Negative (NEGATIVE); NITRITE, URINE Negative (NEGATIVE); PH,URINE 5.5 (5.0-8.0); PROTEIN,URINE Negative (NEGATIVE); UGLUCOSE Negative (NEGATIVE); UROBILINOGEN,URINE 0.2 EU/dL (0.2)
[2019-07-05 20:31] LABS: BASOPHILS % (AUTO) 1.1 % (0.0-2.0); HEMATOCRIT 37 % (39-51); HEMOGLOBIN 12.9 g/dL (13.5-17.5); LYMPHOCYTES % (AUTO) 36.6 % (20.0-44.0); MEAN CORPUSCULAR HGB CONC 35 g/dl (31.0-36.0); MEAN CORPUSCULAR VOLUME 84 fL (80-96); MONOCYTES # (AUTO) 0.6 /CMM (0.1-1.30); MONOCYTES % (AUTO) 9.2 % (2.0-12.0); NEUTROPHILS # (AUTO) 3.1 /CMM (1.8-8.9); NEUTROPHILS % (AUTO) 51.1 % (43.0-81.0); PLATELET COUNT (AUTO) 297 /CMM (150-450); RED BLOOD CELL COUNT(AUTO) 4.42 MIL/uL (4.5-6.0)
[2019-07-05 21:03] LABS: BACTERIA,URINE None seen /HPF (None Seen); SQUAMOUS EPITHELIAL CELL,UR Few /HPF (None Seen); WBC,URINE 0-2 /HPF (0-3)
[2019-07-05 21:07] LABS: CALCIUM, SERUM 8.9 mg/dL (8.5-10.1); CARBON DIOXIDE 27 mmol/L (21-32); CHLORIDE 101 mmol/L (98-107); CREATININE 1.2 mg/dL (0.6-1.3); GLUCOSE 121 mg/dL (74-106); POTASSIUM 4.1 mmol/L (3.5-5.1); SODIUM SERUM 136 mmol/L (136-145); UREA NITROGEN, BLOOD 24 mg/dL (7-18)
[2019-07-05 21:13] LABS: ALANINE AMINOTRANSFERASE 17 U/L (12-78); ALBUMIN 3.3 g/dL (3.4-5.0); ALCOHOL, BLOOD < 3 mg/dL (0-0); ALKALINE PHOSPHATASE 68 U/L (46-116); ASPARTATE AMINOTRANSFERASE 12 U/L (15-37); BILIRUBIN,DIRECT 0.1 mg/dL (0.0-0.2); BILIRUBIN,TOTAL 0.2 mg/dL (0.2-1.0); SALICYLATE 2.8 mg/dL (2.8-20.0); TOTAL PROTEIN, SERUM 9.2 g/dL (6.4-8.2)
--- NOTE | 2019-07-05 21:21 | NUR ---
CALLED [facility] AND SPOKE TO LEBRON. AWAITING HIS CALL BACK WITH BED INFORMATION.
--- NOTE | 2019-07-05 21:35 | NUR ---
SPOKE TO LEBRON AT [facility] AND WAS INFORMED THAT PT IS ON DC LIST FOR [facility]. LEBRON WILL CALL BACK ONCE THE ADMITTING DR MAKES THE FINAL CALL WHETHER THEY WILL ADMIT AND IF THRE ARE BEDS AVAILABLE.
--- NOTE | 2019-07-05 21:54 | NUR ---
DARRIUS FROM [facility] CALLED TO INFORM ME THAT PT IS ON D/C LIST FOR ALL OF THEIR CAMPUSES, INCLUDING [place]. WE WERE INFORMED TO STANDBY AND AWAIT AN OPEN BED IN [place]
[2019-07-05 21:57] LABS: ACETAMINOPHEN < 2 ug/ml (10-30)
--- NOTE | 2019-07-05 23:09 | NUR ---
ACCEPTED TO [facility]. GIVE REPORT [phone] UNIT 2
--- NOTE | 2019-07-05 23:20 | NUR ---
[facility] ETA 0115 TRIP# [phone]
--- NOTE | 2019-07-05 23:54 | NUR ---
REPORT GIVEN TO RAFAEL LUGO FOR CONTINUATION CARE.
--- NOTE | 2019-07-06 00:47 | NUR ---
[facility] AT BEDSIDE FOR TRANSPORT TO [facility].
== END 2019-07-06 00:50 ==
LOC: ER 20:03
DX: R45.851 Suicidal ideations (principal); F32.9 Major depressive disorder, single episode, unspecified; F17.200 Nicotine dependence, unspecified, uncomplicated; Z59.0 Homelessness
CPT/HCPCS: 36415; 80048; 80076; 80305; 80307; 80329; 81001; 85025; 99285; G0480; 81000-TC

== ENCOUNTER 2019-07-13 22:04 | Emergency (ER) | payer MEDICAID ==
[~2019-07-13] VITALS: Ht 168.9 cm; Wt 63.5 kg
--- NOTE | 2019-07-13 22:20 | NUR ---
AMBULATORY TO BED 14 C/O SUICIDAL THOUGHTS "I WANT TO JUMP INTO TRAFFIC". DENIES HI. PT AAOX4 NO ACUTE DISTRESS NOTED, RESP EVEN AND UNLABORED. PT REPORT SMOKING MARIJUANA BUT DENIES OTHER DRUGS. PT CALM AND COOPERATIVE AT THIS TIME. ALL BELONGINGS REMOVED FROM [facility], PLACED PT ON SOSPITAL GOWN. SITTER AT BEDSIDE FOR PT SAFETY.
[2019-07-13 22:49] LABS: APPEARANCE,URINE Clear (CLEAR); BILIRUBIN,URINE Negative (NEGATIVE); BLOOD, URINE Small Ery/uL (NEGATIVE); COLOR,URINE Yellow (YELLOW); KETONES,URINE Negative (NEGATIVE); LEUKOCYTE ESTERASE ,URINE Negative (NEGATIVE); NITRITE, URINE Negative (NEGATIVE); PH,URINE 5.5 (5.0-8.0); PROTEIN,URINE Negative (NEGATIVE); UGLUCOSE Negative (NEGATIVE); UROBILINOGEN,URINE 0.2 EU/dL (0.2)
[2019-07-13 22:52] LABS: BASOPHILS # (AUTO) 0.1 /CMM (0.0-0.2); EOSINOPHILS % (AUTO) 0.7 % (0.0-6.0); HEMATOCRIT 35 % (39-51); LYMPHOCYTES # (AUTO) 2.4 /CMM (0.8-4.8); LYMPHOCYTES % (AUTO) 25.3 % (20.0-44.0); MEAN CORPUSCULAR HGB CONC 35 g/dl (31.0-36.0); MEAN CORPUSCULAR VOLUME 85 fL (80-96); MONOCYTES # (AUTO) 1.2 /CMM (0.1-1.30); MONOCYTES % (AUTO) 12.5 % (2.0-12.0); NEUTROPHILS # (AUTO) 5.7 /CMM (1.8-8.9); NEUTROPHILS % (AUTO) 60.5 % (43.0-81.0); PLATELET COUNT (AUTO) 303 /CMM (150-450); RED BLOOD CELL COUNT(AUTO) 4.11 MIL/uL (4.5-6.0); WHITE BLOOD COUNT (AUTO) 9.5 K/uL (4.3-11.0)
[2019-07-13 22:58] LABS: CALCIUM, SERUM 8.3 mg/dL (8.5-10.1); CARBON DIOXIDE 33 mmol/L (21-32); CHLORIDE 103 mmol/L (98-107); CREATININE 1.6 mg/dL (0.6-1.3); GLUCOSE 101 mg/dL (74-106); POTASSIUM 3.9 mmol/L (3.5-5.1); SODIUM SERUM 138 mmol/L (136-145); UREA NITROGEN, BLOOD 18 mg/dL (7-18)
[2019-07-13 23:12] LABS: ALANINE AMINOTRANSFERASE 17 U/L (12-78); ALBUMIN 3.5 g/dL (3.4-5.0); ALKALINE PHOSPHATASE 75 U/L (46-116); ASPARTATE AMINOTRANSFERASE 15 U/L (15-37); BILIRUBIN,DIRECT 0.1 mg/dL (0.0-0.2); BILIRUBIN,TOTAL 0.1 mg/dL (0.2-1.0)
[2019-07-13 23:22] LABS: ACETAMINOPHEN 0 ug/ml (10-30); ALCOHOL, BLOOD < 3 mg/dL (0-0); SALICYLATE 2.5 mg/dL (2.8-20.0)
[2019-07-13 23:23] LABS: BACTERIA,URINE Few /HPF (None Seen); SQUAMOUS EPITHELIAL CELL,UR Rare /HPF (None Seen); WBC,URINE 21-50 /HPF (0-3)
--- NOTE | 2019-07-13 23:49 | NUR ---
PT ASLEEP, NO ACUTE DISTRESS NOTED, RESP EVEN AN UNLABORED. CALL LIGHT WITHIN REACH. WILL CONTINUE TO MONITOR PT.
--- NOTE | 2019-07-14 00:32 | NUR ---
S/W LEBRON AT [facility], FAXED CLINICAL INFO. WILL C/B W/ BED INFO.
--- NOTE | 2019-07-14 01:30 | NUR ---
PT RESTING, REPOSITIONING SELF IN BED W/ RESP EVEN & UNLABORED, NAD NOTED. BED LOW TO GROUND W/ SIDERAILS UP FOR SAFETY. SITTER REMAINS AT BEDSIDE. WILL CONTINUE TO MONITOR.
--- NOTE | 2019-07-14 01:36 | NUR ---
[facility], ACCEPTED AT [facility] REPORT TO SHEELA, BRITTNEY [phone] RAMOS/ DR. KELLY
--- NOTE | 2019-07-14 01:44 | NUR ---
MINDA CALLED FOR S TRANSPORT TO [facility] RM 415A TRIP# [id number]. ETA [phone].
--- NOTE | 2019-07-14 01:53 | NUR ---
CALLED BRITTNEY COKER AT [facility] [phone] STATES WILL HAVE NURSE CALL BACK FOR REPORT.
--- NOTE | 2019-07-14 02:20 | NUR ---
NO CHANGE IN PT CONDITION, ASLEEP, PRONE ON BED W/ RESP EVEN & UNLABORED, ABLE TO REPOSITION SELF IN BED W/ NAD NOTED. AWAITING TRANSPORT TO [facility]. WILL CONTINUE TO MONITOR.
--- NOTE | 2019-07-14 03:49 | NUR ---
ATTEMPTING TO GIVE REPORT TO RN AT [facility] [phone], CALL TRANSFERRED SEVERAL TIMES AND DISCONNECTED. WILL CALL AGAIN.
--- NOTE | 2019-07-14 03:51 | NUR ---
REPORT GIVEN BRITTNEY CH AT [facility] [phone].
--- NOTE | 2019-07-14 04:02 | NUR ---
INCOMING CALL [facility]SHAL Charles/ [facility] NEW ETA [phone].
--- NOTE | 2019-07-14 04:05 | NUR ---
PT ASLEEP IN BED W/ RESP EVEN & UNLABORED, NAD NOTED. BED LOW TO GROUND W/ SIDERAILS UP FOR SAFETY.
--- NOTE | 2019-07-14 04:55 | NUR ---
[facility] CALLED, ETA 15MINS.
[2019-07-14 05:15] VITALS: BP 113/58
--- NOTE | 2019-07-14 05:45 | NUR ---
REPORT GIVEN TO EMT MINDA FOR THERESA, PT TRANSFER VIA BLS AMBULANCE. PT GAVE VERBAL CONSENT & AGREES TO TRANSFER TO [facility]. PT AMBULATORY W/ STEADY GAIT TO [facility] W/ RESP EVEN & UNLABORED, NAD NOTED. ALL BELONGINGS RETURNED TO PATIENT.
== END 2019-07-14 05:51 ==
LOC: ER 22:08
DX: R45.851 Suicidal ideations (principal); F99 Mental disorder, not otherwise specified; F12.10 Cannabis abuse, uncomplicated; R56.9 Unspecified convulsions; F20.9 Schizophrenia, unspecified; F31.9 Bipolar disorder, unspecified; F17.200 Nicotine dependence, unspecified, uncomplicated; Z59.0 Homelessness
CPT/HCPCS: 36415; 80048; 80076; 80305; 80307; 80329; 81001; 85025; 87086; 99285; 99406; G0480; 81000-TC

== ENCOUNTER 2019-07-16 02:58 | Emergency (ER) | payer MEDICAID ==
[~2019-07-16] VITALS: Ht 163.8 cm; Wt 63.5 kg
[2019-07-16 03:17] VITALS: BP 124/74
--- NOTE | 2019-07-16 03:17 | NUR ---
PT BIB SELF C/O: "FLU LIKE SYMPTOMS, COUGH AND CONGESTION X2 WEEKS" TO ER BED 13 AWAITING MED EVAL
[2019-07-16] MEDS ORDERED: PSEUDOEPHEDRINE HCL 30 MG TABLET ONE (04:27)
[2019-07-16] MEDS ORDERED: PSEUDOEPHEDRINE HCL 30 MG TABLET PO ONE (04:30)
== END 2019-07-16 04:32 | disposition home or self-care (01) ==
LOC: ER 03:02
DX: J06.9 Acute upper respiratory infection, unspecified (principal); F20.9 Schizophrenia, unspecified; F32.9 Major depressive disorder, single episode, unspecified; F17.200 Nicotine dependence, unspecified, uncomplicated; Z59.0 Homelessness
CPT/HCPCS: 71046

== ENCOUNTER 2019-07-31 22:37 | Emergency (ER) | payer MEDICAID ==
[~2019-07-31] VITALS: Ht 163.8 cm; Wt 63.5 kg
[2019-07-31 22:40] VITALS: BP 134/52
--- NOTE | 2019-08-01 03:23 | NUR ---
PT REFEUSED TO HAVE HOS VITAL SIGN TAKEN FOR DISCHARGE. PT JUST WALKED OUT WITHOUT TAKING HIS ACI.
--- NOTE | 2019-08-01 03:24 | NUR ---
Patient discharged to home in stable condition. Written and verbal after care instructions given. Patient verbalizes understanding of instruction. Pt ambulatory with a steady gait
== END 2019-08-01 01:40 | disposition home or self-care (01) ==
LOC: ER 22:40
DX: K14.0 Glossitis (principal); F20.9 Schizophrenia, unspecified; F31.9 Bipolar disorder, unspecified; R56.9 Unspecified convulsions; F17.200 Nicotine dependence, unspecified, uncomplicated; Z59.0 Homelessness; Z71.6 Tobacco abuse counseling
CPT/HCPCS: 99283; 99406; A6403

== ENCOUNTER 2019-08-02 19:02 | Emergency (ER) | payer MEDICAID ==
[~2019-08-02] VITALS: Ht 163.8 cm; Wt 61.2 kg
--- NOTE | 2019-08-02 19:21 | NUR ---
CALLED FOR TRIAGE, NO ANSWER.
[2019-08-02 19:35] VITALS: BP 132/69
--- NOTE | 2019-08-02 21:30 | NUR ---
SEEN AND EXAMINED BY HESHAM PINZON
--- NOTE | 2019-08-02 21:37 | NUR ---
RAPID INFLUENZA OBTAINED AND SENT TO LAB.
[2019-08-02] MEDS ORDERED: IBUPROFEN 600 MG TABLET PO ONE ×2 (21:38→22:00)
--- NOTE | 2019-08-02 21:42 | NUR ---
SENIOR FIRE PROTECTION ENGINEER AT BEDSIDE FOR XRAY.
--- NOTE | 2019-08-02 23:04 | NUR ---
Patient discharged to home in stable condition. Written and verbal after care instructions given. Patient verbalizes understanding of instruction.
== END 2019-08-02 23:06 | disposition home or self-care (01) ==
LOC: ER 19:08
DX: J06.9 Acute upper respiratory infection, unspecified (principal); K14.0 Glossitis; G40.909 Epilepsy, unspecified, not intractable, without status epilepticus; F20.9 Schizophrenia, unspecified; F31.9 Bipolar disorder, unspecified; F17.200 Nicotine dependence, unspecified, uncomplicated; Z59.0 Homelessness
CPT/HCPCS: 71045-TC

== ENCOUNTER 2019-09-02 23:34 | Emergency (ER) | payer MEDICAID ==
[~2019-09-02] VITALS: Ht 165.1 cm; Wt 60.3 kg
--- NOTE | 2019-09-03 00:19 | NUR ---
BIBS. TO ER BED 13. AAOX4. NO RESP DISTRESS NOTED. AMBULATORY ON STEADY GAIT. CAME IN FOR SUICIDAL THOUGHTS WITH PLAN TO JUMP INTO TRAFFIC. PT IS VOLUNTARILY SEEKING IN PATIENT HELP. PT DENIES HOMICIDAL IDEATION. DENIES VISUAL AND AUDITORY HALLUCINATION. PT IS STRIPPED OFF CLOTHING AND PLACED ON GOWN WITH ALL BELONGINGS KEPT IN THE LOCKER IN THE UTILITY ROOM FOR SAFETY. 1:1 SITTER IS AT BEDSIDE. LAB AT BEDSIDE FOR BLOOD DRAW. URINE COLLECTED AND GIVEN TO PROPERTIES SUPERVISOR. AWAITING MD FOR EVAL. WILL CONTINUE TO MONITOR PT
[2019-09-03 00:31] LABS: BASOPHILS # (AUTO) 0.1 /CMM (0.0-0.2); EOSINOPHILS % (AUTO) 2.3 % (0.0-6.0); HEMATOCRIT 38 % (39-51); HEMOGLOBIN 12.7 g/dL (13.5-17.5); LYMPHOCYTES # (AUTO) 2.3 /CMM (0.8-4.8); MEAN CORPUSCULAR HGB CONC 33 g/dl (31.0-36.0); MEAN CORPUSCULAR VOLUME 85 fL (80-96); MONOCYTES # (AUTO) 0.7 /CMM (0.1-1.30); MONOCYTES % (AUTO) 9.9 % (2.0-12.0); NEUTROPHILS # (AUTO) 3.6 /CMM (1.8-8.9); NEUTROPHILS % (AUTO) 52.8 % (43.0-81.0); PLATELET COUNT (AUTO) 288 /CMM (150-450); RED BLOOD CELL COUNT(AUTO) 4.44 MIL/uL (4.5-6.0); WHITE BLOOD COUNT (AUTO) 6.9 K/uL (4.3-11.0)
[2019-09-03 00:35] LABS: APPEARANCE,URINE Clear (CLEAR); BILIRUBIN,URINE Negative (NEGATIVE); BLOOD, URINE Small Ery/uL (NEGATIVE); COLOR,URINE Yellow (YELLOW); KETONES,URINE Negative (NEGATIVE); LEUKOCYTE ESTERASE ,URINE Negative (NEGATIVE); NITRITE, URINE Negative (NEGATIVE); PROTEIN,URINE Negative (NEGATIVE); UGLUCOSE Negative (NEGATIVE); UROBILINOGEN,URINE 0.2 EU/dL (0.2)
[2019-09-03 00:37] LABS: CALCIUM, SERUM 8.9 mg/dL (8.5-10.1); CARBON DIOXIDE 29 mmol/L (21-32); CHLORIDE 99 mmol/L (98-107); CREATININE 1.2 mg/dL (0.6-1.3); GLUCOSE 82 mg/dL (74-106); POTASSIUM 3.6 mmol/L (3.5-5.1); SODIUM SERUM 137 mmol/L (136-145); UREA NITROGEN, BLOOD 16 mg/dL (7-18)
[2019-09-03 00:43] LABS: ACETAMINOPHEN 0 ug/ml (10-30); ALANINE AMINOTRANSFERASE 23 U/L (12-78); ALBUMIN 3.8 g/dL (3.4-5.0); ALCOHOL, BLOOD < 3 mg/dL (0-0); ALKALINE PHOSPHATASE 71 U/L (46-116); ASPARTATE AMINOTRANSFERASE 32 U/L (15-37); BILIRUBIN,DIRECT 0.1 mg/dL (0.0-0.2); BILIRUBIN,TOTAL 0.3 mg/dL (0.2-1.0); SALICYLATE 1.5 mg/dL (2.8-20.0)
[2019-09-03 00:53] LABS: BACTERIA,URINE None seen /HPF (None Seen); SQUAMOUS EPITHELIAL CELL,UR Few /HPF (None Seen); WBC,URINE 0-2 /HPF (0-3)
--- NOTE | 2019-09-03 05:50 | NUR ---
PT NOTIFIED THAT ONLY BED AVAILABLE WAS AT [facility]. PT STATES THAT HE NO LONGER WISHES TO BE ADMITTED VOLUNTARILY. PT DENIES SI/HI. DR CANCINO NOTFIED. PT OK TO BE DISCHARED PER DR CANCINO.
--- NOTE | 2019-09-03 06:00 | NUR ---
PT LEFT ER, REFUSES TO WAIT FOR DISCHARGE PAPERWORK OR SIGN HOMELESS WAIVER.
[2019-09-03 06:01] VITALS: BP 121/70
== END 2019-09-03 06:01 | disposition home or self-care (01) ==
LOC: ER 23:37
DX: R45.851 Suicidal ideations (principal); F19.10 Other psychoactive substance abuse, uncomplicated; F17.200 Nicotine dependence, unspecified, uncomplicated; Z59.0 Homelessness
CPT/HCPCS: 36415; 80048; 80076; 80305; 80307; 80329; 81001; 85025; 99284; G0480; 81000-TC

== ENCOUNTER 2019-09-15 21:46 | Emergency (ER) | payer MEDICAID ==
--- NOTE | 2019-09-15 21:57 | NUR ---
called pt name in wr, pt states he does not want to be seen. risk and benefits explained x3. pt began to hand signal no.
== END 2019-09-15 22:00 | disposition left against medical advice (07) ==
LOC: ER 21:50
DX: Z53.21 Procedure and treatment not carried out due to patient leaving prior to being seen by health care provider (principal)

== ENCOUNTER 2019-09-16 19:45 | Emergency (ER) | payer MEDICAID ==
[~2019-09-16] VITALS: Ht 170.2 cm; Wt 75.3 kg
[2019-09-16] MEDS ORDERED: QUETIAPINE FUMARATE 25 MG TABLET PO STA (19:55)
[2019-09-16] MEDS ORDERED: IBUPROFEN 600 MG TABLET PO ONE ×2 (20:00→20:52)
[2019-09-16 20:10] LABS: BASOPHILS # (AUTO) 0.1 /CMM (0.0-0.2); BASOPHILS % (AUTO) 2.1 % (0.0-2.0); EOSINOPHILS % (AUTO) 4.8 % (0.0-6.0); HEMATOCRIT 36 % (39-51); HEMOGLOBIN 12.3 g/dL (13.5-17.5); LYMPHOCYTES # (AUTO) 2.3 /CMM (0.8-4.8); LYMPHOCYTES % (AUTO) 36.2 % (20.0-44.0); MEAN CORPUSCULAR HGB CONC 34 g/dl (31.0-36.0); MEAN CORPUSCULAR VOLUME 85 fL (80-96); MONOCYTES # (AUTO) 0.6 /CMM (0.1-1.30); MONOCYTES % (AUTO) 9.7 % (2.0-12.0); NEUTROPHILS % (AUTO) 47.2 % (43.0-81.0); PLATELET COUNT (AUTO) 280 /CMM (150-450); RED BLOOD CELL COUNT(AUTO) 4.19 MIL/uL (4.5-6.0); WHITE BLOOD COUNT (AUTO) 6.4 K/uL (4.3-11.0)
[2019-09-16 20:12] LABS: APPEARANCE,URINE Clear (CLEAR); BILIRUBIN,URINE Negative (NEGATIVE); BLOOD, URINE Trace-intact Ery/uL (NEGATIVE); COLOR,URINE Yellow (YELLOW); KETONES,URINE Negative (NEGATIVE); LEUKOCYTE ESTERASE ,URINE Negative (NEGATIVE); NITRITE, URINE Negative (NEGATIVE); PROTEIN,URINE Negative (NEGATIVE); UGLUCOSE Negative (NEGATIVE); UROBILINOGEN,URINE 0.2 EU/dL (0.2)
[2019-09-16 20:18] LABS: CALCIUM, SERUM 8.5 mg/dL (8.5-10.1); CARBON DIOXIDE 29 mmol/L (21-32); CHLORIDE 103 mmol/L (98-107); CREATININE 1.4 mg/dL (0.6-1.3); GLUCOSE 97 mg/dL (74-106); POTASSIUM 3.8 mmol/L (3.5-5.1); SODIUM SERUM 139 mmol/L (136-145); UREA NITROGEN, BLOOD 16 mg/dL (7-18)
[2019-09-16 20:23] LABS: ALANINE AMINOTRANSFERASE 23 U/L (12-78); ALCOHOL, BLOOD < 3 mg/dL (0-0); ALKALINE PHOSPHATASE 77 U/L (46-116); ASPARTATE AMINOTRANSFERASE 25 U/L (15-37); BILIRUBIN,DIRECT 0.1 mg/dL (0.0-0.2); BILIRUBIN,TOTAL 0.2 mg/dL (0.2-1.0); TOTAL PROTEIN, SERUM 8.4 g/dL (6.4-8.2)
[2019-09-16 20:24] LABS: ACETAMINOPHEN < 10 ug/ml (10-30); SALICYLATE 1.9 mg/dL (2.8-20.0)
[2019-09-16 20:26] LABS: BACTERIA,URINE Rare /HPF (None Seen); RBC,URINE 0-2 /HPF (0-2); WBC,URINE NONE SEEN /HPF (0-3)
--- NOTE | 2019-09-16 20:45 | NUR ---
RECEIVED PATIENT WITH CLAIMED OF INTENT TO HURT SELF BY DRUG OVERDOSE, LAST ATTEMPT WAS 1 YEAR AGO. ALSO PATIENT CLAIMED HAVING R KNEE PAIN 5/10, NO FACIAL GRIMICING, WATCHING TV AND EATING AT THIS TIME. KEPT ON BED COMFORTABLY. WILL CONTINUE TO MONITOR ACCORDINGLY.
[2019-09-16] MEDS ORDERED: QUETIAPINE FUMARATE 25 MG TABLET ONE (20:50)
[2019-09-16] MEDS ORDERED: IBUPROFEN 400 MG TABLET ONE (20:51)
--- NOTE | 2019-09-16 22:05 | NUR ---
ROUTINELY CHECKED THE PATIENT. ASLEEP AT THIS TIME WITH TV ON. NO APPARENT S/SX OF DISCOMFORT/PAIN AT THIS TIME. WILL CONTINUE TO MONITOR ACCORDINGLY.
--- NOTE | 2019-09-16 23:57 | NUR ---
PATIENT NOTED AMBULATORY AROUND THE UNIT, ATE SANDWICH. BACK TO BED INDEPENDENTLY.
--- NOTE | 2019-09-17 07:24 | NUR ---
patient denies si/hi. pt requesting to be discharged. pt ok to be discharged per dr gutierrez.
[2019-09-17 07:25] VITALS: BP 124/74
== END 2019-09-17 07:25 | disposition home or self-care (01) ==
LOC: ER 19:51
DX: R45.851 Suicidal ideations (principal); F15.10 Other stimulant abuse, uncomplicated; F12.10 Cannabis abuse, uncomplicated; R56.9 Unspecified convulsions; F20.9 Schizophrenia, unspecified; F31.9 Bipolar disorder, unspecified; F17.200 Nicotine dependence, unspecified, uncomplicated; Z59.0 Homelessness
CPT/HCPCS: 36415; 80048; 80076; 80305; 80307; 80329; 81001; 85025; 99284; G0480; 81000-TC

== ENCOUNTER 2019-09-24 18:28 | Emergency (ER) | payer MEDICAID ==
[~2019-09-24] VITALS: Ht 162.6 cm; Wt 65.3 kg
[2019-09-24 19:42] LABS: APPEARANCE,URINE CLEAR (CLEAR); BILIRUBIN,URINE NEGATIVE (NEGATIVE); BLOOD, URINE SMALL Ery/uL (NEGATIVE); COLOR,URINE YELLOW (YELLOW); KETONES,URINE NEGATIVE (NEGATIVE); LEUKOCYTE ESTERASE ,URINE NEGATIVE (NEGATIVE); NITRITE, URINE NEGATIVE (NEGATIVE); PROTEIN,URINE NEGATIVE (NEGATIVE); UGLUCOSE NEGATIVE (NEGATIVE); UROBILINOGEN,URINE 0.2 EU/dL (0.2)
[2019-09-24 20:00] LABS: CALCIUM, SERUM 8.5 mg/dL (8.5-10.1); CARBON DIOXIDE 32 mmol/L (21-32); CHLORIDE 100 mmol/L (98-107); CREATININE 1.4 mg/dL (0.6-1.3); GLUCOSE 115 mg/dL (74-106); POTASSIUM 4.2 mmol/L (3.5-5.1); SODIUM SERUM 138 mmol/L (136-145); UREA NITROGEN, BLOOD 29 mg/dL (7-18)
[2019-09-24 20:02] LABS: ALANINE AMINOTRANSFERASE 20 U/L (12-78); ALBUMIN 3.1 g/dL (3.4-5.0); ALCOHOL, BLOOD < 3 mg/dL (0-0); ALKALINE PHOSPHATASE 65 U/L (46-116); ASPARTATE AMINOTRANSFERASE 24 U/L (15-37); BILIRUBIN,DIRECT 0.1 mg/dL (0.0-0.2); BILIRUBIN,TOTAL 0.2 mg/dL (0.2-1.0); SALICYLATE 3.5 mg/dL (2.8-20.0); TOTAL PROTEIN, SERUM 8.9 g/dL (6.4-8.2)
[2019-09-24 20:09] LABS: ACETAMINOPHEN 0 ug/ml (10-30)
[2019-09-24 20:23] LABS: BASOPHILS % (AUTO) 0.3 % (0.0-2.0); EOSINOPHILS % (AUTO) 4.1 % (0.0-6.0); HEMATOCRIT 36 % (39-51); HEMOGLOBIN 11.7 g/dL (13.5-17.5); LYMPHOCYTES # (AUTO) 1.8 /CMM (0.8-4.8); LYMPHOCYTES % (AUTO) 40.1 % (20.0-44.0); MEAN CORPUSCULAR HGB CONC 33 g/dl (31.0-36.0); MEAN CORPUSCULAR VOLUME 86 fL (80-96); MONOCYTES # (AUTO) 0.6 /CMM (0.1-1.30); MONOCYTES % (AUTO) 12.5 % (2.0-12.0); PLATELET COUNT (AUTO) 248 /CMM (150-450); RED BLOOD CELL COUNT(AUTO) 4.14 MIL/uL (4.5-6.0); WHITE BLOOD COUNT (AUTO) 4.6 K/uL (4.3-11.0)
--- NOTE | 2019-09-24 22:33 | NUR ---
PAPERWORK FAXED TO [facility]. AWAITING CONFIRMATION.
[2019-09-24 23:48] VITALS: BP 137/89
--- NOTE | 2019-09-24 23:48 | NUR ---
Patient is resting comfortably in bed with eyes closed. Easily aroused. VSS
--- NOTE | 2019-09-25 04:20 | NUR ---
Patient is resting comfortably in bed with eyes closed. Easily aroused. VSS. SITTER AT BEDSIDE
--- NOTE | 2019-09-25 04:53 | NUR ---
pt accepted to [facility]. [phone]. ACCEPTING MD MORALES. AMBULANCE ETA:[id number]
--- NOTE | 2019-09-25 05:02 | NUR ---
NEW AMBULANCE ETA 0600.
--- NOTE | 2019-09-25 05:05 | NUR ---
REPORT GIVEN TO MICHAEL LUGO. ASSIGNED TO ROOM: 205-B
== END 2019-09-25 05:05 | disposition other institution (70) ==
LOC: ER 18:29
DX: R45.851 Suicidal ideations (principal); F19.10 Other psychoactive substance abuse, uncomplicated; D64.9 Anemia, unspecified; N28.9 Disorder of kidney and ureter, unspecified; G40.909 Epilepsy, unspecified, not intractable, without status epilepticus; F17.200 Nicotine dependence, unspecified, uncomplicated; Z59.0 Homelessness
CPT/HCPCS: 36415; 80048; 80076; 80305; 80307; 80329; 81001; 85025; 99285; G0480; 81000-TC

== ENCOUNTER 2019-09-28 22:57 | Emergency (ER) | payer MEDICAID ==
[~2019-09-28] VITALS: Ht 162.6 cm; Wt 65.3 kg
--- NOTE | 2019-09-28 23:05 | NUR ---
BIB EMS C/O +SI WITH PLAN TO RUN INTO TRAFFIC. PT DENIES HI. PLACED ON MONITOR AND PULSE OX.
--- NOTE | 2019-09-28 23:06 | NUR ---
PT BELONINGS PLACED IN LOCKER. PT PLACED IN GOWN.
--- NOTE | 2019-09-28 23:14 | NUR ---
URINE COLLECTED AND SENT TO LAB
--- NOTE | 2019-09-28 23:15 | NUR ---
ELECTRO TECH AT BEDSIDE
--- NOTE | 2019-09-28 23:20 | NUR ---
SECURITY CALLED FOR WANDING
[2019-09-28 23:23] LABS: BASOPHILS # (AUTO) 0.1 /CMM (0.0-0.2); BASOPHILS % (AUTO) 1.2 % (0.0-2.0); EOSINOPHILS % (AUTO) 1.2 % (0.0-6.0); HEMATOCRIT 37 % (39-51); HEMOGLOBIN 12.4 g/dL (13.5-17.5); LYMPHOCYTES # (AUTO) 1.8 /CMM (0.8-4.8); LYMPHOCYTES % (AUTO) 24.6 % (20.0-44.0); MEAN CORPUSCULAR HGB CONC 34 g/dl (31.0-36.0); MEAN CORPUSCULAR VOLUME 85 fL (80-96); MONOCYTES # (AUTO) 0.8 /CMM (0.1-1.30); MONOCYTES % (AUTO) 10.8 % (2.0-12.0); NEUTROPHILS # (AUTO) 4.6 /CMM (1.8-8.9); NEUTROPHILS % (AUTO) 62.2 % (43.0-81.0); PLATELET COUNT (AUTO) 342 /CMM (150-450); RED BLOOD CELL COUNT(AUTO) 4.32 MIL/uL (4.5-6.0); WHITE BLOOD COUNT (AUTO) 7.3 K/uL (4.3-11.0)
[2019-09-28] MEDS ORDERED: OLANZAPINE 5 MG TABLET ONE (23:23)
[2019-09-28 23:25] LABS: APPEARANCE,URINE Clear (CLEAR); BILIRUBIN,URINE Negative (NEGATIVE); BLOOD, URINE Moderate Ery/uL (NEGATIVE); COLOR,URINE Yellow (YELLOW); KETONES,URINE 15 (NEGATIVE); LEUKOCYTE ESTERASE ,URINE Negative (NEGATIVE); NITRITE, URINE Negative (NEGATIVE); PROTEIN,URINE Negative (NEGATIVE); UGLUCOSE Negative (NEGATIVE); UROBILINOGEN,URINE 0.2 EU/dL (0.2)
[2019-09-28] MEDS ORDERED: OLANZAPINE 5 MG TABLET PO ONE (23:30)
[2019-09-28 23:35] LABS: CARBON DIOXIDE 27 mmol/L (21-32); CHLORIDE 100 mmol/L (98-107); CREATININE 1.3 mg/dL (0.6-1.3); GLUCOSE 82 mg/dL (74-106); POTASSIUM 3.8 mmol/L (3.5-5.1); SODIUM SERUM 136 mmol/L (136-145); UREA NITROGEN, BLOOD 24 mg/dL (7-18)
[2019-09-28 23:42] LABS: ACETAMINOPHEN 0 ug/ml (10-30); ALANINE AMINOTRANSFERASE 25 U/L (12-78); ALBUMIN 3.6 g/dL (3.4-5.0); ALCOHOL, BLOOD < 3 mg/dL (0-0); ALKALINE PHOSPHATASE 76 U/L (46-116); ASPARTATE AMINOTRANSFERASE 43 U/L (15-37); BILIRUBIN,DIRECT 0.1 mg/dL (0.0-0.2); BILIRUBIN,TOTAL 0.5 mg/dL (0.2-1.0); SALICYLATE 2.9 mg/dL (2.8-20.0); TOTAL PROTEIN, SERUM 10.1 g/dL (6.4-8.2)
[2019-09-28 23:46] LABS: BACTERIA,URINE Few /HPF (None Seen); SQUAMOUS EPITHELIAL CELL,UR Rare /HPF (None Seen)
--- NOTE | 2019-09-29 00:07 | NUR ---
Patient is resting comfortably in bed. Easily aroused. VSS.
--- NOTE | 2019-09-29 01:46 | NUR ---
Patient is resting comfortably in bed. Easily aroused. VSS.
--- NOTE | 2019-09-29 03:28 | NUR ---
PT ACCEPTED TO [facility] UNIT [address] BAUER. # FOR REPORT [phone]
--- NOTE | 2019-09-29 03:32 | NUR ---
Pt asleep. VSS.
--- NOTE | 2019-09-29 03:38 | NUR ---
REPORT GIVEN TO APPLE LUGO FOR THERESA.
--- NOTE | 2019-09-29 03:46 | NUR ---
ARRAGED TRANSPORT WITH [facility]. REFERENCE NUMBER [id number]. NOT PROVIDED WITH ETA
--- NOTE | 2019-09-29 04:30 | NUR ---
CALL FROM [facility]. AMBUL ETA [id number]
--- NOTE | 2019-09-29 08:41 | NUR ---
BREAKFAST TRAY PROVIDED, TOLERATING PO WELL
[2019-09-29 09:33] VITALS: BP 114/87
--- NOTE | 2019-09-29 10:00 | NUR ---
[id number]. REFERENCE NUMBER [id number]. CAN'T SEEM TO FIND ANY RECORD OF [facility] ACCEPTING TRANSPORT. SETTING UP ANOTHER TRANSPORT TAI.
--- NOTE | 2019-09-29 10:21 | NUR ---
Patient picked up by [facility] Unit 35 in stable condition. Patient will be transferred to [facility]
== END 2019-09-29 10:34 ==
LOC: ER 22:59
DX: R45.851 Suicidal ideations (principal); F32.9 Major depressive disorder, single episode, unspecified; F20.9 Schizophrenia, unspecified; F17.200 Nicotine dependence, unspecified, uncomplicated; F15.10 Other stimulant abuse, uncomplicated; Z59.0 Homelessness
CPT/HCPCS: 36415; 80048; 80076; 80305; 80307; 80329; 81001; 85025; 99285; G0480; 81000-TC

== ENCOUNTER 2019-09-29 16:05 | Emergency (ER) | payer MEDICAID ==
[~2019-09-29] VITALS: Ht 162.6 cm; Wt 65.3 kg
--- NOTE | 2019-09-29 16:14 | NUR ---
BIB SELF FROM [facility] FOR +SI WITH PLAN TO RUN INTO TRAFFIC. PT DENIES HI. TO ER BED 15, HOOKED TO MONITOR, CHANGED TO HOSP GOWN, PROVIDED W ARM BLANKET. PER PATIENT, AFTER THE AMBULANCE DROPPED HIM IN CAVN, THEY TOLD HIM THAT DR ABUER WAS IN A VACATION AND HE WOULD HAVE TO WAIT FOR AVAILABILITY OF ROOM FROM [facility] OR [facility]. PER PATIENT, HE WAS PLACED INTO THEIR WAITING ROOM AND PATIENT JUST DECIDED TO GO AND COME BACK HERE.
--- NOTE | 2019-09-29 16:50 | NUR ---
SECURITY MARCK KHAN SEARCHED AND WANDED THE PATIENT. BELONGINGS PLACED INTO LOCKER ROOM.
--- NOTE | 2019-09-29 17:15 | NUR ---
DR BRADLEY AT BEDSIDE
--- NOTE | 2019-09-29 18:06 | NUR ---
DINNER TRAY PROVIDED TO PATIENT, TOLERATING PO WELL.
[2019-09-29 19:16] VITALS: BP 121/68
--- NOTE | 2019-09-29 19:22 | NUR ---
REPORT GIVEN TO CHARLOTTE LUGO FOR THERESA
--- NOTE | 2019-09-30 01:26 | NUR ---
PT ACCEPTED TO [facility] BY DR ALMODOVAR. # FOR REPORT [phone]. BED 303-A
--- NOTE | 2019-09-30 01:31 | NUR ---
[facility] ETA 45 MINUTES
--- NOTE | 2019-09-30 01:38 | NUR ---
REPORT GIVEN TO [facility] JOSE.
--- NOTE | 2019-09-30 02:26 | NUR ---
[facility] AT BEDSIDE FOR TRANSPORT TO [facility].
== END 2019-09-30 02:30 ==
LOC: ER 16:07
DX: R45.851 Suicidal ideations (principal); F20.9 Schizophrenia, unspecified; F32.9 Major depressive disorder, single episode, unspecified; F15.10 Other stimulant abuse, uncomplicated; F17.200 Nicotine dependence, unspecified, uncomplicated; Z59.0 Homelessness
CPT/HCPCS: 80305

== ENCOUNTER 2019-10-04 15:16 | Emergency (ER) | payer MEDICAID ==
[~2019-10-04] VITALS: Ht 162.6 cm; Wt 63.5 kg
--- NOTE | 2019-10-04 15:18 | NUR ---
ADIN Vera FROM [facility], +SI, -HI, PATIENT STATES "OVERDOSE ON MY PSYCH MEDICATIONS". TO ER BED 11, HOOKED TO MONITOR, CHANGED TO HOSP GOWN, PROVIDED W WARM BLANKET, AWAITING MD MATTSON.
--- NOTE | 2019-10-04 15:21 | NUR ---
SECURITY AT BEDSIDE FOR WANDING. BELONGINGS PLACED INTO ER LOCKER.
--- NOTE | 2019-10-04 15:30 | NUR ---
DR HANLEY AT BEDSIDE
--- NOTE | 2019-10-04 15:31 | NUR ---
URINE SAMPLE SENT TO LAB
[2019-10-04 16:03] LABS: BASOPHILS # (AUTO) 0.1 /CMM (0.0-0.2); BASOPHILS % (AUTO) 0.9 % (0.0-2.0); EOSINOPHILS % (AUTO) 1.3 % (0.0-6.0); HEMATOCRIT 36 % (39-51); HEMOGLOBIN 11.9 g/dL (13.5-17.5); LYMPHOCYTES # (AUTO) 2.4 /CMM (0.8-4.8); LYMPHOCYTES % (AUTO) 31.7 % (20.0-44.0); MEAN CORPUSCULAR HGB CONC 34 g/dl (31.0-36.0); MEAN CORPUSCULAR VOLUME 86 fL (80-96); MONOCYTES % (AUTO) 13.7 % (2.0-12.0); NEUTROPHILS # (AUTO) 3.9 /CMM (1.8-8.9); NEUTROPHILS % (AUTO) 52.4 % (43.0-81.0); PLATELET COUNT (AUTO) 303 /CMM (150-450); RED BLOOD CELL COUNT(AUTO) 4.15 MIL/uL (4.5-6.0); WHITE BLOOD COUNT (AUTO) 7.5 K/uL (4.3-11.0)
[2019-10-04 16:08] LABS: APPEARANCE,URINE Clear (CLEAR); BILIRUBIN,URINE Negative (NEGATIVE); BLOOD, URINE Moderate Ery/uL (NEGATIVE); COLOR,URINE Yellow (YELLOW); KETONES,URINE Trace (NEGATIVE); LEUKOCYTE ESTERASE ,URINE Negative (NEGATIVE); NITRITE, URINE Negative (NEGATIVE); PROTEIN,URINE Negative (NEGATIVE); UGLUCOSE Negative (NEGATIVE); UROBILINOGEN,URINE 0.2 EU/dL (0.2)
[2019-10-04 16:24] LABS: WBC,URINE NONE SEEN /HPF (0-3)
[2019-10-04 16:25] LABS: BACTERIA,URINE Rare /HPF (None Seen); MUCUS,URINE Moderate /LPF (None Seen)
[2019-10-04 16:32] LABS: ALANINE AMINOTRANSFERASE 20 U/L (12-78); ALBUMIN 3.4 g/dL (3.4-5.0); ALCOHOL, BLOOD < 3 mg/dL (0-0); ALKALINE PHOSPHATASE 66 U/L (46-116); ASPARTATE AMINOTRANSFERASE 25 U/L (15-37); BILIRUBIN,DIRECT 0.1 mg/dL (0.0-0.2); BILIRUBIN,TOTAL 0.4 mg/dL (0.2-1.0); CARBON DIOXIDE 29 mmol/L (21-32); CHLORIDE 101 mmol/L (98-107); CREATININE 1.2 mg/dL (0.6-1.3); GLUCOSE 84 mg/dL (74-106); POTASSIUM 4.1 mmol/L (3.5-5.1); SODIUM SERUM 137 mmol/L (136-145); TOTAL PROTEIN, SERUM 9.5 g/dL (6.4-8.2); UREA NITROGEN, BLOOD 19 mg/dL (7-18)
[2019-10-04 16:33] LABS: ACETAMINOPHEN < 10 ug/ml (10-30); SALICYLATE 2.7 mg/dL (2.8-20.0)
--- NOTE | 2019-10-04 17:12 | NUR ---
CALLED KETTLEMAN ZULEYMA MATTSON
--- NOTE | 2019-10-04 18:30 | NUR ---
CURRENCY EXAMINER ZULEYMA CHOWDARY AT BEDSIDE
--- NOTE | 2019-10-04 19:19 | NUR ---
REPORT GIVEN TO WILLIAM LUGO FOR THERESA
--- NOTE | 2019-10-04 19:22 | NUR ---
PT RECEIVED FROM BRITTNEY HILL FOR THERESA. PT IN BED WATCHING TV. 1:1 SITTER AT BEDSIDE
--- NOTE | 2019-10-04 19:30 | NUR ---
PT PROVIDED WITH FOOD
--- NOTE | 2019-10-04 20:09 | NUR ---
CALLED [facility], CLINICALS CURRENTLY BEING REVIEWED BY NURSING SUP
--- NOTE | 2019-10-04 21:47 | NUR ---
TRANSFER INFORMATION: PT ACCEPTED TO [facility] UNIT 1 NUMBER FOR REPORT: [phone] ACCEPTING MD: DR. BAUER
--- NOTE | 2019-10-04 21:56 | NUR ---
CALLED [facility] FOR TRANSPORTATION. CONFIRMATION: [id number], PENDING ETA
--- NOTE | 2019-10-04 22:31 | NUR ---
[facility] ETA 7966
--- NOTE | 2019-10-04 22:47 | NUR ---
REPORT GIVEN TO BRITTNEY HOWARD FROM [facility] FOR THERESA
[2019-10-04 22:48] VITALS: BP 150/89
--- NOTE | 2019-10-04 22:55 | NUR ---
GAVE REPORT TO [place] [id number] FOR TRANSPORTATION THERESA
--- NOTE | 2019-10-04 23:11 | NUR ---
PT LEFT ON [facility] TO [facility]. NAD NOTED. PT IS STABLE FOR TRANSPORT.
== END 2019-10-04 23:12 ==
LOC: ER 15:22
DX: F32.9 Major depressive disorder, single episode, unspecified (principal); F19.10 Other psychoactive substance abuse, uncomplicated; F20.9 Schizophrenia, unspecified; F17.200 Nicotine dependence, unspecified, uncomplicated; Z59.0 Homelessness
CPT/HCPCS: 36415; 80048; 80076; 80305; 80307; 80329; 81001; 85025; 99285; G0480; 81000-TC

== ENCOUNTER 2019-10-26 22:39 | Emergency (ER) | payer MEDICAID ==
[~2019-10-26] VITALS: Ht 163.8 cm; Wt 63.5 kg
[2019-10-26 22:39] VITALS: BP 156/91
--- NOTE | 2019-10-26 22:40 | NUR ---
TO ER BED 13 AMBULATORY C/O SI WITH PLAN TO OVERDOSE ON HIV MEDS. ADMITS TO METH & MARIJUANA USE. PT DENIES HI. PT AAOX4 NO ACUTE DISTRESS NOTED, RESP EVEN AND UNLABORED. PT CALM AND COOPERATIVE AT THIS TIME. GOWNED, ALL BELONGINGS REMOVED AND PLACED IN HOSPITAL LOCKER. 1:1 SITTER AT BEDSIDE FOR PT SAFETY.
--- NOTE | 2019-10-26 22:50 | NUR ---
placed in gown, monitor, and pulse ox.
--- NOTE | 2019-10-26 23:08 | NUR ---
urine sent to lab
--- NOTE | 2019-10-26 23:09 | NUR ---
cooker process cheese at bedside.
[2019-10-26 23:20] LABS: BASOPHILS # (AUTO) 0.1 /CMM (0.0-0.2); BASOPHILS % (AUTO) 1.1 % (0.0-2.0); EOSINOPHILS % (AUTO) 0.5 % (0.0-6.0); HEMATOCRIT 37 % (39-51); HEMOGLOBIN 12.3 g/dL (13.5-17.5); LYMPHOCYTES # (AUTO) 1.8 /CMM (0.8-4.8); MEAN CORPUSCULAR HGB CONC 34 g/dl (31.0-36.0); MEAN CORPUSCULAR VOLUME 87 fL (80-96); MONOCYTES # (AUTO) 0.7 /CMM (0.1-1.30); MONOCYTES % (AUTO) 12.5 % (2.0-12.0); NEUTROPHILS # (AUTO) 3.3 /CMM (1.8-8.9); NEUTROPHILS % (AUTO) 55.9 % (43.0-81.0); PLATELET COUNT (AUTO) 271 /CMM (150-450); RED BLOOD CELL COUNT(AUTO) 4.23 MIL/uL (4.5-6.0); WHITE BLOOD COUNT (AUTO) 5.9 K/uL (4.3-11.0)
[2019-10-26 23:34] LABS: ALANINE AMINOTRANSFERASE 27 U/L (12-78); ALBUMIN 3.8 g/dL (3.4-5.0); ALCOHOL, BLOOD < 3 mg/dL (0-0); ALKALINE PHOSPHATASE 60 U/L (46-116); ASPARTATE AMINOTRANSFERASE 38 U/L (15-37); BILIRUBIN,DIRECT 0.2 mg/dL (0.0-0.2); BILIRUBIN,TOTAL 0.7 mg/dL (0.2-1.0); CALCIUM, SERUM 9.4 mg/dL (8.5-10.1); CARBON DIOXIDE 28 mmol/L (21-32); CHLORIDE 99 mmol/L (98-107); CREATININE 1.3 mg/dL (0.6-1.3); GLUCOSE 98 mg/dL (74-106); POTASSIUM 3.8 mmol/L (3.5-5.1); SODIUM SERUM 134 mmol/L (136-145); TOTAL PROTEIN, SERUM 9.7 g/dL (6.4-8.2); UREA NITROGEN, BLOOD 20 mg/dL (7-18)
[2019-10-26 23:35] LABS: ACETAMINOPHEN < 2 ug/ml (10-30); SALICYLATE 1.8 mg/dL (2.8-20.0)
[2019-10-26 23:55] LABS: APPEARANCE,URINE Clear (CLEAR); BILIRUBIN,URINE Negative (NEGATIVE); BLOOD, URINE Moderate Ery/uL (NEGATIVE); COLOR,URINE Yellow (YELLOW); KETONES,URINE Negative (NEGATIVE); LEUKOCYTE ESTERASE ,URINE Negative (NEGATIVE); NITRITE, URINE Negative (NEGATIVE); PH,URINE 5.5 (5.0-8.0); PROTEIN,URINE Negative (NEGATIVE); UGLUCOSE Negative (NEGATIVE); UROBILINOGEN,URINE 0.2 EU/dL (0.2)
[2019-10-27 00:08] LABS: BACTERIA,URINE Rare /HPF (None Seen); SQUAMOUS EPITHELIAL CELL,UR Few /HPF (None Seen); WBC,URINE NONE SEEN /HPF (0-3)
--- NOTE | 2019-10-27 03:28 | NUR ---
PT ASLEEP, NO ACUTE DISTRESS NOTED, RESP EVEN AND UNLABORED. CALL LIGHT WITHIN REACH. WILL CONTINUE TO MONITOR PT CLOSELY.
--- NOTE | 2019-10-27 04:59 | NUR ---
PT STATING HE IS NOT SUICIDAL OR HOMICIDAL. PT REQUESTING DISCHARGE FROM ER. DR CANCINO NOTIFIED.
--- NOTE | 2019-10-27 05:10 | NUR ---
Patient given written and verbal discharge instructions. Patient verbalizes understanding of instructions. Patient is ambulatory with steady gait. Refuses offer of snf placement. Patient given list of available shelters in surrounding area.
== END 2019-10-27 06:38 | disposition home or self-care (01) ==
LOC: ER 22:39
DX: F19.10 Other psychoactive substance abuse, uncomplicated (principal); R45.851 Suicidal ideations; R56.9 Unspecified convulsions; F20.9 Schizophrenia, unspecified; F31.9 Bipolar disorder, unspecified; F15.10 Other stimulant abuse, uncomplicated; F12.10 Cannabis abuse, uncomplicated; F17.200 Nicotine dependence, unspecified, uncomplicated; Y90.0 Blood alcohol level of less than 20 mg/100 ml; Z59.0 Homelessness
CPT/HCPCS: 36415; 80048; 80076; 80305; 80307; 80329; 81001; 85025; 99283; G0480; 81000-TC

== ENCOUNTER 2019-10-28 05:30 | Emergency (ER) | payer MEDICAID ==
[~2019-10-28] VITALS: Ht 163.8 cm; Wt 65.3 kg
--- NOTE | 2019-10-28 05:30 | NUR ---
TO ER BED 12 AMBULATOY C/O SI WITH PLAN TO RUN INTO TRAFFIC. PT DENIES HI. PT CALM AND COOPERATIVE AT THIS TIME. PT AAOX4 NO ACUTE DISTRESS NOTED, RESP EVEN AND UNLABORED. PLACE PT ON HOSPITAL GOWN, ALL BELONGINGS REMOVED FROM ROOM, 1:1 SITTER AT [facility] FOR PT SAFETY. WILL CONTINUE TO MONITOR PT CLOSELY.
[2019-10-28 06:28] LABS: BASOPHILS % (AUTO) 0.7 % (0.0-2.0); EOSINOPHILS % (AUTO) 1.6 % (0.0-6.0); HEMATOCRIT 37 % (39-51); HEMOGLOBIN 12.3 g/dL (13.5-17.5); LYMPHOCYTES # (AUTO) 1.7 /CMM (0.8-4.8); LYMPHOCYTES % (AUTO) 32.7 % (20.0-44.0); MEAN CORPUSCULAR HGB CONC 33 g/dl (31.0-36.0); MEAN CORPUSCULAR VOLUME 87 fL (80-96); MONOCYTES # (AUTO) 0.6 /CMM (0.1-1.30); MONOCYTES % (AUTO) 12.2 % (2.0-12.0); NEUTROPHILS # (AUTO) 2.8 /CMM (1.8-8.9); NEUTROPHILS % (AUTO) 52.8 % (43.0-81.0); PLATELET COUNT (AUTO) 260 /CMM (150-450); RED BLOOD CELL COUNT(AUTO) 4.26 MIL/uL (4.5-6.0); WHITE BLOOD COUNT (AUTO) 5.3 K/uL (4.3-11.0)
[2019-10-28 06:32] LABS: CALCIUM, SERUM 8.8 mg/dL (8.5-10.1); CARBON DIOXIDE 30 mmol/L (21-32); CHLORIDE 101 mmol/L (98-107); CREATININE 1.3 mg/dL (0.6-1.3); GLUCOSE 101 mg/dL (74-106); POTASSIUM 3.6 mmol/L (3.5-5.1); SODIUM SERUM 138 mmol/L (136-145); UREA NITROGEN, BLOOD 18 mg/dL (7-18)
[2019-10-28 06:33] LABS: APPEARANCE,URINE CLEAR (CLEAR); BILIRUBIN,URINE NEGATIVE (NEGATIVE); BLOOD, URINE SMALL Ery/uL (NEGATIVE); COLOR,URINE YELLOW (YELLOW); KETONES,URINE NEGATIVE (NEGATIVE); LEUKOCYTE ESTERASE ,URINE NEGATIVE (NEGATIVE); NITRITE, URINE NEGATIVE (NEGATIVE); PROTEIN,URINE NEGATIVE (NEGATIVE); UGLUCOSE NEGATIVE (NEGATIVE); UROBILINOGEN,URINE 0.2 EU/dL (0.2)
[2019-10-28 06:39] LABS: ACETAMINOPHEN 0 ug/ml (10-30); ALANINE AMINOTRANSFERASE 30 U/L (12-78); ALBUMIN 3.3 g/dL (3.4-5.0); ALCOHOL, BLOOD < 3 mg/dL (0-0); ALKALINE PHOSPHATASE 61 U/L (46-116); ASPARTATE AMINOTRANSFERASE 39 U/L (15-37); BILIRUBIN,DIRECT 0.1 mg/dL (0.0-0.2); BILIRUBIN,TOTAL 0.3 mg/dL (0.2-1.0); SALICYLATE 2.5 mg/dL (2.8-20.0)
--- NOTE | 2019-10-28 09:33 | NUR ---
CALLED [facility] AND SPOKE WITH DREW. THEY RECIEVED CLINICALS AND REQUESTED FACESHEET. NAWAF IS GOING OVER CLINICALS AND WILL GET BACK TO ME WITH MORE INFO. WE KNOW PT CAN BE ACCEPTED AT [facility]. DR HAY IS PSYCHIATRIST.
--- NOTE | 2019-10-28 10:25 | NUR ---
PT IS ACCEPTED AT [facility]. ACCEPTING DR. SATNAM ZARAGOZA.
--- NOTE | 2019-10-28 10:28 | NUR ---
CALLED [facility]. ETA FOR AMBULANCE IS 10 MINUTES.
--- NOTE | 2019-10-28 11:02 | NUR ---
report given to Fabian LUGO for sandra.
[2019-10-28 11:03] VITALS: BP 137/64
--- NOTE | 2019-10-28 11:04 | NUR ---
patient picked up by private ambulance going to [facility] as a voluntary admission, in no distress, denies any pain or discomfort, nor chest pain.
== END 2019-10-28 11:04 ==
LOC: ER 05:31
DX: R45.851 Suicidal ideations (principal); F19.10 Other psychoactive substance abuse, uncomplicated; F31.9 Bipolar disorder, unspecified; F20.9 Schizophrenia, unspecified; R56.9 Unspecified convulsions; F15.10 Other stimulant abuse, uncomplicated; F12.10 Cannabis abuse, uncomplicated; F17.200 Nicotine dependence, unspecified, uncomplicated; Z59.0 Homelessness
CPT/HCPCS: 36415; 80048; 80076; 80164; 80305; 80307; 80329; 81001; 85025; 99285; G0480; 81000-TC

== ENCOUNTER 2019-11-05 00:28 | Emergency (ER) | payer MEDICAID ==
[~2019-11-05] VITALS: Ht 162.6 cm; Wt 63.5 kg
--- NOTE | 2019-11-05 02:30 | NUR ---
ATTEMPTED TO TRIAGE PATIENT, PT STATES HE WANTS TO GO OUTSIDE TO SMOKE FIRST
--- NOTE | 2019-11-05 03:26 | NUR ---
OPERATIONS VOCATIONAL INSTRUCTOR AT BEDSIDE FOR BLOOD DRAW. URINE COLLECTED AND SENT TO LAB
[2019-11-05 03:32] LABS: BASOPHILS # (AUTO) 0.1 /CMM (0.0-0.2); BASOPHILS % (AUTO) 0.8 % (0.0-2.0); EOSINOPHILS % (AUTO) 1.3 % (0.0-6.0); HEMATOCRIT 38 % (39-51); HEMOGLOBIN 12.6 g/dL (13.5-17.5); LYMPHOCYTES # (AUTO) 2.6 /CMM (0.8-4.8); LYMPHOCYTES % (AUTO) 32.8 % (20.0-44.0); MEAN CORPUSCULAR HGB CONC 33 g/dl (31.0-36.0); MEAN CORPUSCULAR VOLUME 86 fL (80-96); MONOCYTES % (AUTO) 12.8 % (2.0-12.0); NEUTROPHILS # (AUTO) 4.1 /CMM (1.8-8.9); NEUTROPHILS % (AUTO) 52.3 % (43.0-81.0); PLATELET COUNT (AUTO) 320 /CMM (150-450); WHITE BLOOD COUNT (AUTO) 7.9 K/uL (4.3-11.0)
--- NOTE | 2019-11-05 03:32 | NUR ---
PT BIBSELF C/O SUICIDAL IDEATION WITH PLAN TO OVERDOSE ON PILLS. PT AAOX4. RESPIRATIONS EVEN AND UNLABORED. SKIN WARM AND INTACT. AMBULATORY WITH STEADY GAIT. NO ACUTE DISTRESS NOTED AT THIS TIME. PT PLACED IN GOWN. BELONGINGS COLLECTED AND PLACED IN PATIENT LOCKER. SITTER AT BEDSIDE. WILL CONTINUE TO MONITOR
[2019-11-05 03:41] LABS: APPEARANCE,URINE CLEAR (CLEAR); BILIRUBIN,URINE NEGATIVE (NEGATIVE); BLOOD, URINE TRACE Ery/uL (NEGATIVE); CALCIUM, SERUM 8.9 mg/dL (8.5-10.1); CARBON DIOXIDE 32 mmol/L (21-32); CHLORIDE 100 mmol/L (98-107); COLOR,URINE YELLOW (YELLOW); CREATININE 1.2 mg/dL (0.6-1.3); GLUCOSE 80 mg/dL (74-106); KETONES,URINE NEGATIVE (NEGATIVE); NITRITE, URINE NEGATIVE (NEGATIVE); POTASSIUM 3.3 mmol/L (3.5-5.1); PROTEIN,URINE NEGATIVE (NEGATIVE); SODIUM SERUM 138 mmol/L (136-145); UGLUCOSE NEGATIVE (NEGATIVE); UREA NITROGEN, BLOOD 19 mg/dL (7-18); UROBILINOGEN,URINE 0.2 EU/dL (0.2)
[2019-11-05 03:42] LABS: LEUKOCYTE ESTERASE ,URINE NEGATIVE (NEGATIVE)
[2019-11-05 03:46] LABS: ALANINE AMINOTRANSFERASE 37 U/L (12-78); ALBUMIN 3.5 g/dL (3.4-5.0); ALCOHOL, BLOOD < 3 mg/dL (0-0); ALKALINE PHOSPHATASE 73 U/L (46-116); ASPARTATE AMINOTRANSFERASE 42 U/L (15-37); BILIRUBIN,DIRECT 0.1 mg/dL (0.0-0.2); BILIRUBIN,TOTAL 0.3 mg/dL (0.2-1.0); SALICYLATE 3.6 mg/dL (2.8-20.0); TOTAL PROTEIN, SERUM 9.6 g/dL (6.4-8.2)
[2019-11-05 03:49] LABS: ACETAMINOPHEN < 2 ug/ml (10-30)
[2019-11-05 04:04] LABS: BACTERIA,URINE None seen /HPF (None Seen); SQUAMOUS EPITHELIAL CELL,UR Few /HPF (None Seen); WBC,URINE 0-2 /HPF (0-3)
--- NOTE | 2019-11-05 05:20 | NUR ---
PER [facility], PT UNACCEPTED AT [facility] DUE TO VIOLENT BEHAVIOR. PT ALSO UNACCEPTED AT [facility] DUE TO "PRETENDING TO BE ILL"
--- NOTE | 2019-11-05 05:41 | NUR ---
PT STILL STATING HE IS SUICIDAL, CALLED PIPO KATZ FOR EVALUATION
--- NOTE | 2019-11-05 08:02 | NUR ---
PIPO KATZ AT BEDSIDE FOR EVAL.
[2019-11-05 08:44] VITALS: BP 122/81
--- NOTE | 2019-11-05 08:44 | NUR ---
Patient given written and verbal discharge instructions. Patient verbalizes understanding of instructions. Patient is ambulatory with steady gait. Refuses offer of usp placement. Patient given list of available shelters in surrounding area.
== END 2019-11-05 08:45 | disposition home or self-care (01) ==
LOC: ER 00:30
DX: R45.851 Suicidal ideations (principal); F20.9 Schizophrenia, unspecified; F32.9 Major depressive disorder, single episode, unspecified; F12.10 Cannabis abuse, uncomplicated; F17.200 Nicotine dependence, unspecified, uncomplicated; Z59.0 Homelessness
CPT/HCPCS: 36415; 80048; 80076; 80305; 80307; 80329; 81001; 85025; 99284; G0480; 81000-TC

== ENCOUNTER 2019-11-05 13:26 | Emergency (ER) | payer MEDICAID ==
[~2019-11-05] VITALS: Ht 162.6 cm; Wt 65.8 kg
[2019-11-05 13:42] VITALS: BP 122/81
--- NOTE | 2019-11-05 14:34 | NUR ---
PT DISCHARGE IN STABLE CONDITION. MEDICALLY AND PSYCH CLEARED TWICE. TODAY.
== END 2019-11-05 14:35 | disposition home or self-care (01) ==
LOC: ER 13:32
DX: R46.89 Other symptoms and signs involving appearance and behavior (principal); Z76.5 Malingerer [conscious simulation]; Z59.0 Homelessness

== ENCOUNTER 2019-11-12 01:19 | Emergency (ER) | payer MEDICAID ==
[~2019-11-12] VITALS: Ht 162.6 cm; Wt 65.3 kg
--- NOTE | 2019-11-12 02:48 | NUR ---
CALLED PATIENT TO BE TRIAGED, NO ANSWER
--- NOTE | 2019-11-12 02:55 | NUR ---
URINE COLLECTED AND SENT TO LAB
--- NOTE | 2019-11-12 03:00 | NUR ---
BIBSELF C/O SUICIDAL IDEATION WITH PLAN TO OVERDOSE ON PRESCRIPTION PILLS. DENIES HALLUCINATIONS OR HI AT THIS TIME. PT AAOX4. CALM AND COOPERATIVE. AMBULATORY WITH STEADY GAIT. SKIN INTACT. VITAL SIGNS STABLE. NO ACUTE DISTRESS NOTED AT THIS TIME. PT PLACED IN GOWN. BELONGINGS COLLECTED AND PLACED IN PATIENT LOCKER. SITTER AT BEDSIDE. WILL CONTINUE TO MONITOR
[2019-11-12 03:26] LABS: APPEARANCE,URINE Clear (CLEAR); BILIRUBIN,URINE Negative (NEGATIVE); BLOOD, URINE Moderate Ery/uL (NEGATIVE); COLOR,URINE Yellow (YELLOW); KETONES,URINE 15 (NEGATIVE); LEUKOCYTE ESTERASE ,URINE Negative (NEGATIVE); NITRITE, URINE Negative (NEGATIVE); PH,URINE 5.5 (5.0-8.0); PROTEIN,URINE Negative (NEGATIVE); UGLUCOSE Negative (NEGATIVE); UROBILINOGEN,URINE 0.2 EU/dL (0.2)
[2019-11-12 03:43] LABS: BASOPHILS % (AUTO) 0.5 % (0.0-2.0); EOSINOPHILS % (AUTO) 0.7 % (0.0-6.0); HEMATOCRIT 37 % (39-51); HEMOGLOBIN 12.4 g/dL (13.5-17.5); LYMPHOCYTES # (AUTO) 1.8 /CMM (0.8-4.8); LYMPHOCYTES % (AUTO) 28.1 % (20.0-44.0); MEAN CORPUSCULAR HGB CONC 34 g/dl (31.0-36.0); MEAN CORPUSCULAR VOLUME 86 fL (80-96); MONOCYTES # (AUTO) 0.8 /CMM (0.1-1.30); MONOCYTES % (AUTO) 13.1 % (2.0-12.0); NEUTROPHILS # (AUTO) 3.7 /CMM (1.8-8.9); NEUTROPHILS % (AUTO) 57.6 % (43.0-81.0); PLATELET COUNT (AUTO) 278 /CMM (150-450); WHITE BLOOD COUNT (AUTO) 6.4 K/uL (4.3-11.0)
[2019-11-12 03:44] LABS: BACTERIA,URINE None seen /HPF (None Seen); SQUAMOUS EPITHELIAL CELL,UR Few /HPF (None Seen); WBC,URINE 0-2 /HPF (0-3)
[2019-11-12 03:51] LABS: CALCIUM, SERUM 8.6 mg/dL (8.5-10.1); CARBON DIOXIDE 30 mmol/L (21-32); CHLORIDE 96 mmol/L (98-107); CREATININE 1.2 mg/dL (0.6-1.3); GLUCOSE 84 mg/dL (74-106); POTASSIUM 3.5 mmol/L (3.5-5.1); SODIUM SERUM 134 mmol/L (136-145); UREA NITROGEN, BLOOD 22 mg/dL (7-18)
[2019-11-12 03:56] LABS: ALANINE AMINOTRANSFERASE 24 U/L (12-78); ALBUMIN 3.6 g/dL (3.4-5.0); ALKALINE PHOSPHATASE 77 U/L (46-116); ASPARTATE AMINOTRANSFERASE 43 U/L (15-37); BILIRUBIN,DIRECT 0.1 mg/dL (0.0-0.2); BILIRUBIN,TOTAL 0.5 mg/dL (0.2-1.0); TOTAL PROTEIN, SERUM 9.8 g/dL (6.4-8.2)
[2019-11-12 03:58] LABS: ACETAMINOPHEN 0 ug/ml (10-30); ALCOHOL, BLOOD < 3 mg/dL (0-0); SALICYLATE 2.5 mg/dL (2.8-20.0)
[2019-11-12 09:21] VITALS: BP 135/85
== END 2019-11-12 09:22 | disposition home or self-care (01) ==
LOC: ER 01:22
DX: R45.851 Suicidal ideations (principal); F32.9 Major depressive disorder, single episode, unspecified; F41.9 Anxiety disorder, unspecified; F17.200 Nicotine dependence, unspecified, uncomplicated; Z59.0 Homelessness
CPT/HCPCS: 36415; 80048; 80076; 80305; 80307; 80329; 81001; 85025; 99284; G0480; 81000-TC

== ENCOUNTER 2019-11-12 18:07 | Emergency (ER) | payer MEDICAID ==
[~2019-11-12] VITALS: Ht 162.6 cm; Wt 77.1 kg
[2019-11-12 18:18] VITALS: BP 131/86
--- NOTE | 2019-11-12 18:30 | NUR ---
PER DR. BRADLEY, PT DENIES ANY S/I OR H/I, PT JUST WANTS A PLACE TO STAY IN. WILL BE WRITING D/C PAPERS FOR PATIENT
== END 2019-11-12 18:49 | disposition home or self-care (01) ==
LOC: ER 18:10
DX: F31.9 Bipolar disorder, unspecified (principal); F20.9 Schizophrenia, unspecified; R56.9 Unspecified convulsions; F15.10 Other stimulant abuse, uncomplicated; F12.10 Cannabis abuse, uncomplicated; F17.200 Nicotine dependence, unspecified, uncomplicated; Z59.0 Homelessness

== ENCOUNTER 2019-11-17 13:11 | Emergency (ER) | payer MEDICAID ==
[~2019-11-17] VITALS: Ht 162.6 cm; Wt 65.8 kg
--- NOTE | 2019-11-17 14:16 | NUR ---
SECURITY CALLED FOR WANDING. BELONGINGS TO SAFE LOCKER.
--- NOTE | 2019-11-17 14:22 | NUR ---
BRITTON WHITNEY AT BEDSIDE
[2019-11-17 14:35] LABS: APPEARANCE,URINE Clear (CLEAR); BILIRUBIN,URINE Negative (NEGATIVE); BLOOD, URINE Negative Ery/uL (NEGATIVE); COLOR,URINE Yellow (YELLOW); KETONES,URINE Negative (NEGATIVE); LEUKOCYTE ESTERASE ,URINE Negative (NEGATIVE); NITRITE, URINE Negative (NEGATIVE); PH,URINE 5.5 (5.0-8.0); PROTEIN,URINE 30 mg/dl (NEGATIVE); UGLUCOSE Negative (NEGATIVE); UROBILINOGEN,URINE 0.2 EU/dL (0.2)
[2019-11-17 14:41] LABS: RBC,URINE 0-2 /HPF (0-2); WBC,URINE 0-2 /HPF (0-3)
[2019-11-17 14:42] LABS: BACTERIA,URINE Few /HPF (None Seen); HYALINE CASTS, URINE Few /LPF (None Seen); MUCUS,URINE Moderate /LPF (None Seen); SQUAMOUS EPITHELIAL CELL,UR Few /HPF (None Seen)
[2019-11-17 14:49] LABS: BASOPHILS # (AUTO) 0.1 /CMM (0.0-0.2); BASOPHILS % (AUTO) 1.2 % (0.0-2.0); EOSINOPHILS % (AUTO) 0.7 % (0.0-6.0); HEMATOCRIT 39 % (39-51); HEMOGLOBIN 12.9 g/dL (13.5-17.5); LYMPHOCYTES # (AUTO) 2.3 /CMM (0.8-4.8); LYMPHOCYTES % (AUTO) 29.1 % (20.0-44.0); MEAN CORPUSCULAR HGB CONC 33 g/dl (31.0-36.0); MEAN CORPUSCULAR VOLUME 87 fL (80-96); MONOCYTES # (AUTO) 0.9 /CMM (0.1-1.30); MONOCYTES % (AUTO) 11.7 % (2.0-12.0); NEUTROPHILS # (AUTO) 4.6 /CMM (1.8-8.9); NEUTROPHILS % (AUTO) 57.3 % (43.0-81.0); PLATELET COUNT (AUTO) 364 /CMM (150-450); RED BLOOD CELL COUNT(AUTO) 4.47 MIL/uL (4.5-6.0); WHITE BLOOD COUNT (AUTO) 8.1 K/uL (4.3-11.0)
[2019-11-17] MEDS ORDERED: BENZTROPINE MESYLATE (1 MG) 1 MG TABLET PO ONE (15:00)
--- NOTE | 2019-11-17 15:02 | NUR ---
Social service consult requested by MD for voluntary psychiatric admission. Per MD notes, pt is a 39-year-old Male with a history of HIV, seizure disorder, schizophrenia, bipolar disorder, depression, and polysubstance abuse, who came to the ED for evaluation of suicidal ideation. The patient reports feeling depressed and suicidal with plan to overdose on pills. SEAL DELIVERY VEHICLE OFFICER met with the pt. bedside. Pt is alert and oriented x 4. Pt had his belongings bedside. Pt is cooperative with SEAL DELIVERY VEHICLE OFFICER. Pt's mood is congruent. Pt. reports that he was discharged from a psychiatric hospital in [place] yesterday. He admits to tobacco use and methamphetamine use. 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 Pt has a psychiatric diagnosis of Schizophrenia, Bipolar and Depression. Pt states he is currently on Seroquel, Zyprexa, and Keppra. Pt reports to [facility] that he is suicidal with a plan to OD on pills. SEAL DELIVERY VEHICLE OFFICER informed pt. she will refer him to [facility] for voluntary admission. SEAL DELIVERY VEHICLE OFFICER contacted Kevin and [facility] . Kevin informed SEAL DELIVERY VEHICLE OFFICER they will hold a bed for the pt at [facility]. SEAL DELIVERY VEHICLE OFFICER updated LORIE Castelan with aforementioned information.
[2019-11-17] MEDS ORDERED: BENZTROPINE MESYLATE (1 MG) 1 MG TABLET ONE (15:05)
[2019-11-17 15:21] LABS: ALANINE AMINOTRANSFERASE 41 U/L (12-78); ALBUMIN 3.7 g/dL (3.4-5.0); ALCOHOL, BLOOD < 3 mg/dL (0-0); ALKALINE PHOSPHATASE 73 U/L (46-116); ASPARTATE AMINOTRANSFERASE 90 U/L (15-37); BILIRUBIN,DIRECT 0.1 mg/dL (0.0-0.2); BILIRUBIN,TOTAL 0.3 mg/dL (0.2-1.0); CALCIUM, SERUM 8.7 mg/dL (8.5-10.1); CARBON DIOXIDE 29 mmol/L (21-32); CHLORIDE 100 mmol/L (98-107); CREATININE 1.4 mg/dL (0.6-1.3); GLUCOSE 104 mg/dL (74-106); POTASSIUM 3.6 mmol/L (3.5-5.1); SALICYLATE 3.8 mg/dL (2.8-20.0); SODIUM SERUM 138 mmol/L (136-145); UREA NITROGEN, BLOOD 16 mg/dL (7-18)
[2019-11-17 15:38] LABS: ACETAMINOPHEN < 2 ug/ml (10-30)
--- NOTE | 2019-11-17 16:20 | NUR ---
GOT OFF THE PHONE WITH [facility]. THEY ARE GOING TO REEVALUATE ABOUT BEING ADMITTED SO [facility] CLINICALS FAXED OVER.
--- NOTE | 2019-11-17 16:22 | NUR ---
BORING MILL SET UP OPERATOR VERTICAL was informed by Tom in ED that [facility] informed him that pt is on their "do not admit" list. BORING MILL SET UP OPERATOR VERTICAL contacted Kevin who informed BORING MILL SET UP OPERATOR VERTICAL that he spoke with [facility] and they should accept the pt. there. Kevin informed BORING MILL SET UP OPERATOR VERTICAL to have ED contact him if there is an issue with admitting the pt to [facility]. BORING MILL SET UP OPERATOR VERTICAL updated Tom in ED with aforementioned information.
--- NOTE | 2019-11-17 16:27 | NUR ---
Maris gonzales in [facility] - 11/17/19 at 1629 by RSOY REPORT GIVEN TO DRY HOUSE WORKER FOR CONTINUITY OF CARE ON TELEMETRY UNIT
--- NOTE | 2019-11-17 16:38 | NUR ---
FAXED CLINICALS TO [facility].
--- NOTE | 2019-11-17 17:11 | NUR ---
GOT OFF THE PHONE WITH PALMER FROM [facility]. THEY FAXED OVER CLINICALS TO [facility]. WAITING ON EITHER ONE TO ACCEPT AND WILL CALL BACK WITH INFORMATION.
--- NOTE | 2019-11-17 17:32 | NUR ---
FOOD TRAY PROVIDED, TOLERATING PO WELL
--- NOTE | 2019-11-17 18:34 | NUR ---
[facility] CALL[facility]. PT ACCEPTED AT [facility]. DR. RAMOS IS THE PSYCHIATRIST. DR. HARVEY HOSPITALIST. NUMBER FOR REPORT [phone] EXT. [phone]. FRANTZ IS THE NURSE.
--- NOTE | 2019-11-17 18:40 | NUR ---
CALLED [facility] FOR TRANSPORT TO [facility]. ETA [phone].
--- NOTE | 2019-11-17 18:58 | NUR ---
CALLED [facility] FOR REPORT, SPOKED TO BRITTNEY MCDONOUGH CALLED BACK AFTER CHANGE OF SHIFT.
--- NOTE | 2019-11-17 19:48 | NUR ---
PT RESTING QUIETLY, NO ACUTE DISTRESS NOTED, RESP EVEN AND UNLABORED. PT CALMMAND COOPERATIVE AT THIS TIME. CALL LIGHT WITHIN REACH. 1:1 SITTER AT BEDSIDE. WILL CONTINUE TO MONITOR PT CLOSELY.
--- NOTE | 2019-11-17 20:10 | NUR ---
SPOKE TO JC AND ACCEPTED PT TO [facility]. ACCEPTING . [facility]OO[facility] ROOM #-316A
--- NOTE | 2019-11-17 21:16 | NUR ---
REPORT GIVEN TO [facility] RFID DEVELOPERBRITTNEY VERMA. AWAITING TRANSPORT.
--- NOTE | 2019-11-17 21:40 | NUR ---
TRANSPORT AT BEDSIDE REPORT GIVEN TO EMT TRANSPORT. ALL BELONGINGS HANDED TO EMT TRANSPORT.
[2019-11-17 21:43] VITALS: BP 138/65
== END 2019-11-17 21:43 ==
LOC: ER 13:16
DX: F31.9 Bipolar disorder, unspecified (principal); R45.851 Suicidal ideations; F15.10 Other stimulant abuse, uncomplicated; G40.909 Epilepsy, unspecified, not intractable, without status epilepticus; F20.9 Schizophrenia, unspecified; F12.10 Cannabis abuse, uncomplicated; F17.200 Nicotine dependence, unspecified, uncomplicated; Z59.0 Homelessness
CPT/HCPCS: 36415; 80048; 80076; 80305; 80307; 80329; 81001; 85025; 99285; G0480; 81000-TC

== ENCOUNTER 2019-11-25 23:29 | Emergency (ER) | payer MEDICAID ==
[~2019-11-25] VITALS: Ht 162.6 cm; Wt 63.5 kg
[2019-11-25 23:34] VITALS: BP 151/89
--- NOTE | 2019-11-25 23:42 | NUR ---
URINE COLLECTED AND SENT TO LAB
[2019-11-25 23:50] LABS: APPEARANCE,URINE Clear (CLEAR); BILIRUBIN,URINE Negative (NEGATIVE); BLOOD, URINE Trace-intact Ery/uL (NEGATIVE); COLOR,URINE Yellow (YELLOW); KETONES,URINE Negative (NEGATIVE); LEUKOCYTE ESTERASE ,URINE Negative (NEGATIVE); NITRITE, URINE Negative (NEGATIVE); PROTEIN,URINE Negative (NEGATIVE); UGLUCOSE Negative (NEGATIVE); UROBILINOGEN,URINE 0.2 EU/dL (0.2)
[2019-11-25 23:57] LABS: BASOPHILS # (AUTO) 0.1 /CMM (0.0-0.2); BASOPHILS % (AUTO) 1.3 % (0.0-2.0); HEMATOCRIT 36 % (39-51); HEMOGLOBIN 12.2 g/dL (13.5-17.5); LYMPHOCYTES # (AUTO) 2.1 /CMM (0.8-4.8); LYMPHOCYTES % (AUTO) 30.2 % (20.0-44.0); MEAN CORPUSCULAR HGB CONC 34 g/dl (31.0-36.0); MEAN CORPUSCULAR VOLUME 85 fL (80-96); MONOCYTES # (AUTO) 0.9 /CMM (0.1-1.30); MONOCYTES % (AUTO) 12.6 % (2.0-12.0); NEUTROPHILS # (AUTO) 3.8 /CMM (1.8-8.9); NEUTROPHILS % (AUTO) 54.9 % (43.0-81.0); PLATELET COUNT (AUTO) 271 /CMM (150-450)
[2019-11-26 00:03] LABS: CALCIUM, SERUM 8.6 mg/dL (8.5-10.1); CARBON DIOXIDE 32 mmol/L (21-32); CHLORIDE 100 mmol/L (98-107); CREATININE 1.2 mg/dL (0.6-1.3); GLUCOSE 94 mg/dL (74-106); POTASSIUM 3.7 mmol/L (3.5-5.1); SODIUM SERUM 136 mmol/L (136-145); UREA NITROGEN, BLOOD 25 mg/dL (7-18)
[2019-11-26 00:04] LABS: BACTERIA,URINE None seen /HPF (None Seen); RBC,URINE 0-2 /HPF (0-2); SQUAMOUS EPITHELIAL CELL,UR Few /HPF (None Seen); WBC,URINE 0-2 /HPF (0-3)
[2019-11-26 00:10] LABS: ALANINE AMINOTRANSFERASE 33 U/L (12-78); ALBUMIN 3.7 g/dL (3.4-5.0); ALCOHOL, BLOOD < 3 mg/dL (0-0); ALKALINE PHOSPHATASE 72 U/L (46-116); ASPARTATE AMINOTRANSFERASE 51 U/L (15-37); BILIRUBIN,DIRECT 0.1 mg/dL (0.0-0.2); BILIRUBIN,TOTAL 0.5 mg/dL (0.2-1.0); SALICYLATE 3.9 mg/dL (2.8-20.0); TOTAL PROTEIN, SERUM 9.6 g/dL (6.4-8.2)
[2019-11-26 00:57] LABS: ACETAMINOPHEN 0 ug/ml (10-30)
--- NOTE | 2019-11-26 05:13 | NUR ---
PATIENT STATING HE IS NO LONGER SUICIDAL. DENIES HOMIDICAL IDEATION. DR MORTENSEN AT BEDSIDE.
--- NOTE | 2019-11-26 05:15 | NUR ---
PT OK TO DISCHARGE PER DR MORTENSEN. Patient given written and verbal discharge instructions. Patient verbalizes understanding of instructions. Patient is ambulatory with steady gait. Refuses offer of nursing home placement. Patient given list of available shelters in surrounding area.
== END 2019-11-26 05:18 | disposition home or self-care (01) ==
LOC: ER 23:32
DX: F31.9 Bipolar disorder, unspecified (principal); R56.9 Unspecified convulsions; F20.9 Schizophrenia, unspecified; F15.10 Other stimulant abuse, uncomplicated; F12.10 Cannabis abuse, uncomplicated; F17.200 Nicotine dependence, unspecified, uncomplicated; Z59.0 Homelessness
CPT/HCPCS: 36415; 80048; 80076; 80305; 80307; 80329; 81001; 85025; 99284; G0480; 81000-TC

== ENCOUNTER 2020-01-07 22:40 | Emergency (ER) | payer MEDICAID ==
[~2020-01-07] VITALS: Ht 162.6 cm; Wt 63.5 kg
--- NOTE | 2020-01-07 22:55 | NUR ---
PT BIBSELF C/O SUICIDAL IDEATION WITH PLAN TO OD ON PILLS, PT IS AAOX4, NOT IN RESPIRATORY DISTRESS, V/S STABLE, BELONGINGS REMOVED AT BEDSIDE, KEPT RESTED AND COMFORTABLE, WILL CONTINUE TO MONITOR, AWAITING ER MD FOR EVAL.
--- NOTE | 2020-01-07 23:05 | NUR ---
URINE SPECIMEN COLLECTED AND SENT TO LAB.
--- NOTE | 2020-01-07 23:10 | NUR ---
SEEN AND EXAMINED BY .
--- NOTE | 2020-01-07 23:30 | NUR ---
ER PHLEB AT BEDSIDE FOR BLOOD DRAW.
[2020-01-07 23:34] LABS: BASOPHILS # (AUTO) 0.1 /CMM (0.0-0.2); BASOPHILS % (AUTO) 1.4 % (0.0-2.0); EOSINOPHILS % (AUTO) 4.6 % (0.0-6.0); HEMATOCRIT 37 % (39-51); HEMOGLOBIN 12.7 g/dL (13.5-17.5); LYMPHOCYTES # (AUTO) 2.1 /CMM (0.8-4.8); LYMPHOCYTES % (AUTO) 45.7 % (20.0-44.0); MEAN CORPUSCULAR HGB CONC 34 g/dl (31.0-36.0); MEAN CORPUSCULAR VOLUME 87 fL (80-96); MONOCYTES # (AUTO) 0.4 /CMM (0.1-1.30); MONOCYTES % (AUTO) 8.6 % (2.0-12.0); NEUTROPHILS # (AUTO) 1.8 /CMM (1.8-8.9); NEUTROPHILS % (AUTO) 39.7 % (43.0-81.0); PLATELET COUNT (AUTO) 314 /CMM (150-450); RED BLOOD CELL COUNT(AUTO) 4.31 MIL/uL (4.5-6.0); WHITE BLOOD COUNT (AUTO) 4.6 K/uL (4.3-11.0)
[2020-01-07 23:39] LABS: APPEARANCE,URINE Clear (CLEAR); BILIRUBIN,URINE Negative (NEGATIVE); BLOOD, URINE Trace-lysed Ery/uL (NEGATIVE); COLOR,URINE Yellow (YELLOW); KETONES,URINE Negative (NEGATIVE); LEUKOCYTE ESTERASE ,URINE Negative (NEGATIVE); NITRITE, URINE Negative (NEGATIVE); PH,URINE 5.5 (5.0-8.0); PROTEIN,URINE 30 mg/dl (NEGATIVE); UGLUCOSE Negative (NEGATIVE); UROBILINOGEN,URINE 0.2 EU/dL (0.2)
[2020-01-07 23:43] LABS: CALCIUM, SERUM 7.7 mg/dL (8.5-10.1); CARBON DIOXIDE 28 mmol/L (21-32); CHLORIDE 103 mmol/L (98-107); CREATININE 1.1 mg/dL (0.6-1.3); GLUCOSE 145 mg/dL (74-106); POTASSIUM 3.2 mmol/L (3.5-5.1); SODIUM SERUM 139 mmol/L (136-145); UREA NITROGEN, BLOOD 14 mg/dL (7-18)
[2020-01-07 23:55] LABS: ACETAMINOPHEN 0 ug/ml (10-30); ALANINE AMINOTRANSFERASE 22 U/L (12-78); ALBUMIN 2.9 g/dL (3.4-5.0); ALCOHOL, BLOOD < 3 mg/dL (0-0); ALKALINE PHOSPHATASE 71 U/L (46-116); ASPARTATE AMINOTRANSFERASE 21 U/L (15-37); BILIRUBIN,DIRECT 0.1 mg/dL (0.0-0.2); BILIRUBIN,TOTAL 0.3 mg/dL (0.2-1.0); SALICYLATE 1.5 mg/dL (2.8-20.0); TOTAL PROTEIN, SERUM 8.3 g/dL (6.4-8.2)
[2020-01-08 00:38] LABS: BACTERIA,URINE Few /HPF (None Seen); SQUAMOUS EPITHELIAL CELL,UR Few /HPF (None Seen)
--- NOTE | 2020-01-08 00:57 | NUR ---
PT ASLEEP ON BED, V/S STABLE, KEPT RESTED AND COMFORTABLE, WILL CONTINUE TO MONITOR.
--- NOTE | 2020-01-08 03:45 | NUR ---
PT AWAKE ON BED AAOX4, NOT IN RESPIRATORY DISTRESS, V/S STABLE, KEPT RESTED AND COMFORTABLE, WILL CONTINUE TO MONITOR.
--- NOTE | 2020-01-08 05:51 | NUR ---
PT ASLEEP ON BED EASILY AROUSABLE, NOT IN RESPIRATORY DISTRESS, V/S STABLE, KEPT RESTED AND COMFORTABLE, WILL CONTINUE TO MONITOR.
[2020-01-08] MEDS ORDERED: POTASSIUM CHLORIDE 20 MEQ TAB.PRT.SR PO ONE ×2 (06:55→07:00)
--- NOTE | 2020-01-08 07:49 | NUR ---
PATIENT A/OX4, AMBULATORY WITH STEADY GAIT. NO DISTRESS NOTED. Ordered food tray, tap card will be given to patient. Homeless waiver signed, patient has adequate clothing. Patient given written and verbal discharge instructions. Patient verbalizes understanding of instructions. Patient is ambulatory with steady gait. Refuses offer of longterm placement. Patient given list of available shelters in surrounding area.
[2020-01-08 08:22] VITALS: BP 112/68
== END 2020-01-08 08:24 | disposition home or self-care (01) ==
LOC: ER 22:40
DX: R45.851 Suicidal ideations (principal); F32.9 Major depressive disorder, single episode, unspecified; E87.6 Hypokalemia; F17.200 Nicotine dependence, unspecified, uncomplicated; Z59.0 Homelessness
CPT/HCPCS: 36415; 80048; 80076; 80305; 80307; 80329; 81001; 85025; 99285; G0480; 81000-TC

== ENCOUNTER 2020-01-09 20:55 | Emergency (ER) | payer MEDICAID ==
[~2020-01-09] VITALS: Ht 162.6 cm; Wt 63.5 kg
[2020-01-09 23:13] VITALS: BP 149/87
== END 2020-01-09 23:42 | disposition home or self-care (01) ==
LOC: ER 20:55
DX: F32.9 Major depressive disorder, single episode, unspecified (principal); F20.9 Schizophrenia, unspecified; F17.200 Nicotine dependence, unspecified, uncomplicated; Z59.0 Homelessness

== ENCOUNTER 2020-01-14 16:50 | Emergency (ER) | payer MEDICAID ==
[~2020-01-14] VITALS: Ht 167.6 cm; Wt 63.5 kg
[2020-01-14 16:56] VITALS: BP 140/88
[2020-01-14] MEDS ORDERED: IBUPROFEN 600 MG TABLET PO ONE ×2 (17:21→17:30)
[2020-01-14] MEDS ORDERED: ACETAMINOPHEN 325 MG TABLET ONE (17:21)
[2020-01-14] MEDS ORDERED: ACETAMINOPHEN 650 MG/20.3 ML UDC PO ONE (17:30)
--- NOTE | 2020-01-14 18:17 | NUR ---
Patient awake alert non distress EMT @ bedside for splint
--- NOTE | 2020-01-14 18:18 | NUR ---
Patient discharged to home in stable condition. Written and verbal after care instructions given. Patient verbalizes understanding of instruction.
--- NOTE | 2020-01-14 18:34 | NUR ---
Patient discharged to home in stable condition. Written and verbal after care instructions given. Patient verbalizes understanding of instruction.
== END 2020-01-14 18:36 | disposition home or self-care (01) ==
LOC: ER 16:53
DX: S62.310A Displaced fracture of base of second metacarpal bone, right hand, initial encounter for closed fracture (principal); R56.9 Unspecified convulsions; Z59.0 Homelessness; Y04.8XXA Assault by other bodily force, initial encounter; Y93.89 Activity, other specified; Y92.89 Other specified places as the place of occurrence of the external cause; Y99.8 Other external cause status
CPT/HCPCS: 73130-TC

== ENCOUNTER 2020-01-15 12:44 | Emergency (ER) | payer MEDICAID ==
[~2020-01-15] VITALS: Ht 170.2 cm; Wt 70.3 kg
[2020-01-15 12:51] VITALS: BP 134/65
== END 2020-01-15 13:23 | disposition home or self-care (01) ==
LOC: ER 12:46
DX: S62.310D Displaced fracture of base of second metacarpal bone, right hand, subsequent encounter for fracture with routine healing (principal); F20.9 Schizophrenia, unspecified; F32.9 Major depressive disorder, single episode, unspecified; F17.200 Nicotine dependence, unspecified, uncomplicated; Z59.0 Homelessness; X58.XXXD Exposure to other specified factors, subsequent encounter

== ENCOUNTER 2020-01-19 20:21 | Emergency (ER) | payer MEDICAID ==
--- NOTE | 2020-01-19 21:53 | NUR ---
CALLED PT TO BE TRIAGED, NO ANSWER
--- NOTE | 2020-01-19 22:53 | NUR ---
CALLED PT TO BE TRIAGED, NO ANSWER
--- NOTE | 2020-01-19 23:58 | NUR ---
CALLED PT TO BE TRIAGED, NO ANSWER
== END 2020-01-19 23:59 | disposition left against medical advice (07) ==
LOC: ER 20:28
DX: Z53.21 Procedure and treatment not carried out due to patient leaving prior to being seen by health care provider (principal)

== ENCOUNTER 2020-01-20 09:52 | Emergency (ER) | payer MEDICAID ==
[~2020-01-20] VITALS: Ht 170.2 cm; Wt 70.3 kg
--- NOTE | 2020-01-20 10:07 | NUR ---
called security for wanding
--- NOTE | 2020-01-20 10:07 | NUR ---
security came and wand the patient
[2020-01-20 10:32] VITALS: BP 140/81
--- NOTE | 2020-01-20 10:32 | NUR ---
Patient discharged to home in stable condition. Written and verbal after care instructions given. Patient verbalizes understanding of instruction. patient denies suicidal anymore.
== END 2020-01-20 10:32 | disposition home or self-care (01) ==
LOC: ER 09:57
DX: F32.9 Major depressive disorder, single episode, unspecified (principal); F28 Other psychotic disorder not due to a substance or known physiological condition; F19.10 Other psychoactive substance abuse, uncomplicated; Z76.5 Malingerer [conscious simulation]; F17.200 Nicotine dependence, unspecified, uncomplicated; Z59.0 Homelessness

== ENCOUNTER 2020-01-23 00:57 | Emergency (ER) | payer MEDICAID ==
[~2020-01-23] VITALS: Ht 170.2 cm; Wt 70.3 kg
[2020-01-23 00:59] VITALS: BP 144/86
== END 2020-01-23 01:12 | disposition home or self-care (01) ==
LOC: ER 00:58
DX: F28 Other psychotic disorder not due to a substance or known physiological condition (principal); F32.9 Major depressive disorder, single episode, unspecified; F20.9 Schizophrenia, unspecified; F17.200 Nicotine dependence, unspecified, uncomplicated

== ENCOUNTER 2020-02-01 09:17 | Emergency (ER) | payer MEDICAID ==
[~2020-02-01] VITALS: Ht 162.6 cm; Wt 65.3 kg
--- NOTE | 2020-02-01 09:26 | NUR ---
WANTS MEDICAL CLEARANCE SO HE CAN GO TO A "HOMELESS ENCAMPMENT", TO ER BED 11, HOOKED TO MONITOR, DR CABRAL AT BEDSIDE
--- NOTE | 2020-02-01 09:55 | NUR ---
Patient given written and verbal discharge instructions. Patient verbalizes understanding of instructions. Patient is ambulatory with steady gait. Refuses offer of prison placement. Patient given list of available shelters in surrounding area. Patient in proper clothing upon discharge, name band removed. All belongings returned.
[2020-02-01 09:57] VITALS: BP 147/85
== END 2020-02-01 09:57 | disposition home or self-care (01) ==
LOC: ER 09:20
DX: Z00.8 Encounter for other general examination (principal); F32.9 Major depressive disorder, single episode, unspecified; F20.9 Schizophrenia, unspecified; F17.200 Nicotine dependence, unspecified, uncomplicated; Z60.2 Problems related to living alone

== ENCOUNTER 2020-02-18 17:57 | Emergency (ER) | payer MEDICAID ==
[~2020-02-18] VITALS: Ht 162.6 cm; Wt 65.3 kg
--- NOTE | 2020-02-18 18:00 | NUR ---
[id number], from streets, +SI "want to run through traffic", to ER bed 15, hooked to monitor, changed to hosp gown, warm blabket provided, patient AO x 4, ambulatory, breathing even and unlabored. Dr Holt at bedside. Sitter at bedside
--- NOTE | 2020-02-18 18:04 | NUR ---
security at bedside for wanding
--- NOTE | 2020-02-18 18:06 | NUR ---
belongings placed at patient locker room.
[2020-02-18 18:25] LABS: BASOPHILS # (AUTO) 0.1 /CMM (0.0-0.2); BASOPHILS % (AUTO) 1.2 % (0.0-2.0); EOSINOPHILS % (AUTO) 0.8 % (0.0-6.0); HEMATOCRIT 39 % (39-51); HEMOGLOBIN 13.5 g/dL (13.5-17.5); LYMPHOCYTES # (AUTO) 2.1 /CMM (0.8-4.8); LYMPHOCYTES % (AUTO) 39.6 % (20.0-44.0); MEAN CORPUSCULAR HGB CONC 34 g/dl (31.0-36.0); MEAN CORPUSCULAR VOLUME 86 fL (80-96); MONOCYTES # (AUTO) 0.7 /CMM (0.1-1.30); NEUTROPHILS # (AUTO) 2.4 /CMM (1.8-8.9); NEUTROPHILS % (AUTO) 44.4 % (43.0-81.0); PLATELET COUNT (AUTO) 298 /CMM (150-450); RED BLOOD CELL COUNT(AUTO) 4.59 MIL/uL (4.5-6.0); WHITE BLOOD COUNT (AUTO) 5.3 K/uL (4.3-11.0)
[2020-02-18 18:33] LABS: CALCIUM, SERUM 9.1 mg/dL (8.5-10.1); CARBON DIOXIDE 29 mmol/L (21-32); CHLORIDE 98 mmol/L (98-107); CREATININE 1.5 mg/dL (0.6-1.3); GLUCOSE 92 mg/dL (74-106); POTASSIUM 4.4 mmol/L (3.5-5.1); SODIUM SERUM 132 mmol/L (136-145); UREA NITROGEN, BLOOD 19 mg/dL (7-18)
[2020-02-18 18:38] LABS: ACETAMINOPHEN 0 ug/ml (10-30); ALANINE AMINOTRANSFERASE 31 U/L (12-78); ALBUMIN 3.8 g/dL (3.4-5.0); ALCOHOL, BLOOD < 3 mg/dL (0-0); ALKALINE PHOSPHATASE 65 U/L (46-116); ASPARTATE AMINOTRANSFERASE 30 U/L (15-37); BILIRUBIN,DIRECT 0.2 mg/dL (0.0-0.2); BILIRUBIN,TOTAL 0.7 mg/dL (0.2-1.0); SALICYLATE 1.8 mg/dL (2.8-20.0); TOTAL PROTEIN, SERUM 10.2 g/dL (6.4-8.2)
--- NOTE | 2020-02-18 19:00 | NUR ---
dinner tray provided, tolerating po well.
--- NOTE | 2020-02-18 19:16 | NUR ---
URINE IS COLLECTED AND SENT TO THE LAB.
[2020-02-18 19:23] LABS: APPEARANCE,URINE Clear (CLEAR); BILIRUBIN,URINE Negative (NEGATIVE); BLOOD, URINE Trace-lysed Ery/uL (NEGATIVE); COLOR,URINE Yellow (YELLOW); KETONES,URINE Negative (NEGATIVE); LEUKOCYTE ESTERASE ,URINE Negative (NEGATIVE); NITRITE, URINE Negative (NEGATIVE); PH,URINE 5.5 (5.0-8.0); PROTEIN,URINE Negative (NEGATIVE); UGLUCOSE Negative (NEGATIVE); UROBILINOGEN,URINE 0.2 EU/dL (0.2)
[2020-02-18 19:57] LABS: BACTERIA,URINE Rare /HPF (None Seen); MUCUS,URINE Few /LPF (None Seen); SQUAMOUS EPITHELIAL CELL,UR 0-2 /HPF (None Seen); WBC,URINE 0-2 /HPF (0-3)
[2020-02-18] MEDS ORDERED: OLANZAPINE 5 MG TABLET PO ONE (20:00)
[2020-02-18] MEDS ORDERED: OLANZAPINE 5 MG TABLET ONE (20:22)
--- NOTE | 2020-02-18 23:12 | NUR ---
PER SOCAL INTAKE, CLINICAL INFORMATION STILL BEING REVIEWED BY [facility]
--- NOTE | 2020-02-19 00:10 | NUR ---
PT ACCEPTED TO [facility] ACCEPTING MD: DR. RAMOS/DR. SNYDER NUMBER FOR REPORT: [phone] EXT [id number] SITE 6
--- NOTE | 2020-02-19 00:20 | NUR ---
CALLED [facility] EMERGENCY DEPARTMENT FOR TRANSPORTATION. CONFIRMATION [phone]. WILL CALL BACK WITH ETA
--- NOTE | 2020-02-19 00:25 | NUR ---
[facility] ETA 0337
--- NOTE | 2020-02-19 01:52 | NUR ---
REPORT GIVEN TO BRITTNEY [facility]
--- NOTE | 2020-02-19 03:04 | NUR ---
ETA 0592
--- NOTE | 2020-02-19 03:05 | NUR ---
INFORMED SOC[facility] ETA
--- NOTE | 2020-02-19 04:53 | NUR ---
REPORT GIVEN TO [facility] FOR TRANSPORTATION THERESA
[2020-02-19 04:54] VITALS: BP 126/84
== END 2020-02-19 04:56 ==
LOC: ER 18:01
DX: F32.9 Major depressive disorder, single episode, unspecified (principal); F19.10 Other psychoactive substance abuse, uncomplicated; R45.851 Suicidal ideations; F17.200 Nicotine dependence, unspecified, uncomplicated; Z60.2 Problems related to living alone
CPT/HCPCS: 36415; 80048; 80076; 80305; 80307; 80329; 81001; 85025; 99285; G0480; 81000-TC

== ENCOUNTER 2020-02-19 11:25 | Emergency (ER) | payer MEDICAID ==
[~2020-02-19] VITALS: Ht 162.6 cm; Wt 59.0 kg
[2020-02-19 12:09] LABS: BASOPHILS # (AUTO) 0.1 /CMM (0.0-0.2); BASOPHILS % (AUTO) 1.2 % (0.0-2.0); EOSINOPHILS % (AUTO) 1.5 % (0.0-6.0); HEMATOCRIT 40 % (39-51); HEMOGLOBIN 13.5 g/dL (13.5-17.5); LYMPHOCYTES # (AUTO) 1.6 /CMM (0.8-4.8); MEAN CORPUSCULAR HGB CONC 34 g/dl (31.0-36.0); MEAN CORPUSCULAR VOLUME 86 fL (80-96); MONOCYTES # (AUTO) 0.5 /CMM (0.1-1.30); NEUTROPHILS # (AUTO) 2.4 /CMM (1.8-8.9); NEUTROPHILS % (AUTO) 52.3 % (43.0-81.0); PLATELET COUNT (AUTO) 296 /CMM (150-450); RED BLOOD CELL COUNT(AUTO) 4.61 MIL/uL (4.5-6.0); WHITE BLOOD COUNT (AUTO) 4.6 K/uL (4.3-11.0)
[2020-02-19 12:15] LABS: APPEARANCE,URINE Clear (CLEAR); BILIRUBIN,URINE Negative (NEGATIVE); BLOOD, URINE Small Ery/uL (NEGATIVE); COLOR,URINE Yellow (YELLOW); KETONES,URINE Negative (NEGATIVE); LEUKOCYTE ESTERASE ,URINE Negative (NEGATIVE); NITRITE, URINE Negative (NEGATIVE); PROTEIN,URINE Negative (NEGATIVE); UGLUCOSE Negative (NEGATIVE); UROBILINOGEN,URINE 0.2 EU/dL (0.2)
[2020-02-19 12:17] LABS: BACTERIA,URINE None seen /HPF (None Seen); RBC,URINE 0-2 /HPF (0-2); SQUAMOUS EPITHELIAL CELL,UR 0-2 /HPF (None Seen); WBC,URINE 0-2 /HPF (0-3)
[2020-02-19 12:19] LABS: CALCIUM, SERUM 9.1 mg/dL (8.5-10.1); CARBON DIOXIDE 33 mmol/L (21-32); CHLORIDE 97 mmol/L (98-107); CREATININE 1.2 mg/dL (0.6-1.3); GLUCOSE 93 mg/dL (74-106); POTASSIUM 4.2 mmol/L (3.5-5.1); SODIUM SERUM 134 mmol/L (136-145); UREA NITROGEN, BLOOD 23 mg/dL (7-18)
[2020-02-19 12:25] LABS: ALANINE AMINOTRANSFERASE 29 U/L (12-78); ALBUMIN 3.9 g/dL (3.4-5.0); ALCOHOL, BLOOD < 3 mg/dL (0-0); ALKALINE PHOSPHATASE 67 U/L (46-116); ASPARTATE AMINOTRANSFERASE 27 U/L (15-37); BILIRUBIN,DIRECT 0.1 mg/dL (0.0-0.2); BILIRUBIN,TOTAL 0.5 mg/dL (0.2-1.0); TOTAL PROTEIN, SERUM 10.1 g/dL (6.4-8.2)
--- NOTE | 2020-02-19 14:23 | NUR ---
SW Consult SW met with the pt in the Emergency Room at bedside when services were requested by staff for suicidal ideation. Pt is a 39 year old male. Pt is alert and oriented x4 (time, place, self and situation). Pt appears to be in a depressed and manic mood and presents with an anxious affect. Pt states that he has suicidal ideation and that he has been feeling depressed for a long time. Pt states that he has a plan to walk into traffic. Pt states that he is homeless and that he does not have anyone in his life that he would consider to be a good support system. Pt reports cannabis use so the SW provided him with homeless alf resources as well as substance use. Pt appears to be disheveled and malodorous. Pt states that he has been to [facility] many times and he would like to go back. Plan: Pt will be referred to [facility] for a voluntary admission.
--- NOTE | 2020-02-19 14:45 | NUR ---
BRITTON faxed a referral to [facility] with attention to Kevin to the fax number: [phone].
--- NOTE | 2020-02-19 16:41 | NUR ---
RECIEVED A CALL FROM SHAWANDA FROM [facility] REGARDING PLACEMENT. ARE STILL LOOKING FOR BEDS. WILL WAIT FOR ASSIGNMENT.
--- NOTE | 2020-02-19 17:24 | NUR ---
PER LOBO, ACCEPTED AT [facility] DR. VEGA ROOM 419a [phone] CHARGE NURSE
--- NOTE | 2020-02-19 17:55 | NUR ---
CALLED DOMO FOR EVIE TO [facility]. ETA 193.
[2020-02-19 18:47] VITALS: BP 115/64
--- NOTE | 2020-02-19 18:55 | NUR ---
REPORT GIVEN TO SHAHEED LUGO AT [facility].
--- NOTE | 2020-02-19 18:56 | NUR ---
REPORT GIVEN TO LEAD PERSON. PATIENT A/OX4, BREATHING EVEN AND UNLABORED, NO SOB NOTED. NEEDS ATTENDED. PATIENT WILL BE TRANSFERRED TO [facility] IN STABLE CONDITION. BELONGINGS GIVEN TO THE PATIENT.
== END 2020-02-19 19:05 ==
LOC: ER 11:28
DX: F19.10 Other psychoactive substance abuse, uncomplicated (principal); R45.851 Suicidal ideations; R56.9 Unspecified convulsions; F20.9 Schizophrenia, unspecified; F31.9 Bipolar disorder, unspecified; F12.10 Cannabis abuse, uncomplicated; Z59.0 Homelessness
CPT/HCPCS: 36415; 80048-TC; 80076-TC; 81000-TC; 85025-TC; G0480

== ENCOUNTER 2020-03-07 21:15 | Emergency (ER) | payer MEDICAID ==
[~2020-03-07] VITALS: Ht 162.6 cm; Wt 59.0 kg
--- NOTE | 2020-03-07 21:25 | NUR ---
PT BIBSELF C/O SI WITH PLAN TO OD. PT DENIES HI. PT AAOX4, VSS, RESPIRATIONS EVEN AND UNLABORED ON RA W NAD NOTED. PT CHANGED INTO GOWN, BELONGINGS PLACED TO LOCKER, SITTER AT [facility] FOR SAFETY. PLACED ON SUICIDE PRECAUTUIONS
[2020-03-07 21:44] LABS: BASOPHILS # (AUTO) 0.1 /CMM (0.0-0.2); BASOPHILS % (AUTO) 1.3 % (0.0-2.0); EOSINOPHILS % (AUTO) 4.1 % (0.0-6.0); HEMATOCRIT 39 % (39-51); LYMPHOCYTES # (AUTO) 2.4 /CMM (0.8-4.8); LYMPHOCYTES % (AUTO) 43.4 % (20.0-44.0); MEAN CORPUSCULAR HGB CONC 34 g/dl (31.0-36.0); MEAN CORPUSCULAR VOLUME 86 fL (80-96); MONOCYTES # (AUTO) 0.7 /CMM (0.1-1.30); MONOCYTES % (AUTO) 12.1 % (2.0-12.0); NEUTROPHILS # (AUTO) 2.2 /CMM (1.8-8.9); NEUTROPHILS % (AUTO) 39.1 % (43.0-81.0); PLATELET COUNT (AUTO) 322 /CMM (150-450); WHITE BLOOD COUNT (AUTO) 5.6 K/uL (4.3-11.0)
[2020-03-07 21:52] LABS: CALCIUM, SERUM 8.2 mg/dL (8.5-10.1); CARBON DIOXIDE 27 mmol/L (21-32); CHLORIDE 103 mmol/L (98-107); CREATININE 1.2 mg/dL (0.6-1.3); GLUCOSE 114 mg/dL (74-106); POTASSIUM 3.6 mmol/L (3.5-5.1); SODIUM SERUM 138 mmol/L (136-145); UREA NITROGEN, BLOOD 17 mg/dL (7-18)
[2020-03-07 21:58] LABS: ALANINE AMINOTRANSFERASE 19 U/L (12-78); ALBUMIN 3.3 g/dL (3.4-5.0); ALCOHOL, BLOOD < 3 mg/dL (0-0); ALKALINE PHOSPHATASE 73 U/L (46-116); ASPARTATE AMINOTRANSFERASE 18 U/L (15-37); BILIRUBIN,DIRECT 0.1 mg/dL (0.0-0.2); BILIRUBIN,TOTAL 0.5 mg/dL (0.2-1.0); SALICYLATE 3.4 mg/dL (2.8-20.0); TOTAL PROTEIN, SERUM 9.2 g/dL (6.4-8.2)
[2020-03-07 22:01] LABS: ACETAMINOPHEN 0 ug/ml (10-30)
--- NOTE | 2020-03-07 22:23 | NUR ---
Awaiting urine sample. Patient is resting comfortably in bed with eyes closed. Easily aroused. VSS.
[2020-03-07 23:20] LABS: APPEARANCE,URINE Clear (CLEAR); BILIRUBIN,URINE Negative (NEGATIVE); BLOOD, URINE Moderate Ery/uL (NEGATIVE); COLOR,URINE Yellow (YELLOW); KETONES,URINE Negative (NEGATIVE); LEUKOCYTE ESTERASE ,URINE Negative (NEGATIVE); NITRITE, URINE Negative (NEGATIVE); PH,URINE 5.5 (5.0-8.0); PROTEIN,URINE Negative (NEGATIVE); UGLUCOSE Negative (NEGATIVE); UROBILINOGEN,URINE 0.2 EU/dL (0.2)
[2020-03-07 23:30] LABS: BACTERIA,URINE None seen /HPF (None Seen); SQUAMOUS EPITHELIAL CELL,UR Few /HPF (None Seen); WBC,URINE 0-2 /HPF (0-3)
--- NOTE | 2020-03-08 00:02 | NUR ---
CLINICAL FAXED TO [facility] FOR VOLUNTARY PSYCH ADMISSION.
--- NOTE | 2020-03-08 02:39 | NUR ---
PT RESTING COMFORTABLY IN BED. VSS. NO ACUTE DISTRESS NOTED.
--- NOTE | 2020-03-08 04:14 | NUR ---
PT ASLEEP, NO ACUTE DISTRESS NOTED, RESP EVEN AND UNLABORED. CALL LIGHT WITHIN REACH. WILL CONTINUE TO MONITOR PT CLOSELY. 1:1 SITTER AT BEDSIDE.
--- NOTE | 2020-03-08 04:15 | NUR ---
TRANSFER INFORMATION: PT ACCEPTED TO [facility] ACCEPTING MD: DR. BAUER/DR. HARVEY NUMBER FOR REPORT: [phone]
--- NOTE | 2020-03-08 04:20 | NUR ---
REPORT GIVEN TO BRITTNEY CHIU [facility]CAR[facility]
--- NOTE | 2020-03-08 04:25 | NUR ---
CALLED [facility] FOR TRANSPORTATION. RESERVATION #[id number]. WILL CALL BACK WITH CAROLA
--- NOTE | 2020-03-08 05:24 | NUR ---
[facility] ETA 0700
[2020-03-08 06:40] VITALS: BP 119/69
--- NOTE | 2020-03-08 07:12 | NUR ---
REPORT GIVEN TO TRANSFER. PT TRANSFERED.
== END 2020-03-08 07:25 ==
LOC: ER 21:15
DX: R45.851 Suicidal ideations (principal); F19.10 Other psychoactive substance abuse, uncomplicated; F20.9 Schizophrenia, unspecified; F31.9 Bipolar disorder, unspecified; F29 Unspecified psychosis not due to a substance or known physiological condition; R56.9 Unspecified convulsions; Z59.0 Homelessness
CPT/HCPCS: 36415; 80048; 80076; 80305; 80307; 80329; 81001; 85025; 99285; G0480; 81000-TC

== ENCOUNTER 2020-03-16 17:33 | Emergency (ER) | payer MEDICAID ==
[~2020-03-16] VITALS: Ht 162.6 cm; Wt 59.0 kg
--- NOTE | 2020-03-16 17:35 | NUR ---
CAME IN FOR SUICIDAL IDEATION "TO OVERDOSE ON SEROQUEL". TO ER BED 11, HOOKED TO MONITOR, CHANGED TO HOSP GOWN, WARM BLANKET PROVIDED, AWAITING MD MATTSON. SITER AT BEDSIDE
--- NOTE | 2020-03-16 17:38 | NUR ---
URINE SPECIMEN COLLECTED AND SENT TO LAB.
--- NOTE | 2020-03-16 17:41 | NUR ---
DEAN DAHL AT BEDSIDE FOR EVAL
--- NOTE | 2020-03-16 17:45 | NUR ---
SECURITY AT BEDSIDE FOR WANDING. BELONGINGS PLACED IN PATIENT BELONGINGS LOCKER.
[2020-03-16 18:21] LABS: APPEARANCE,URINE Slightly Cloudy (CLEAR); BILIRUBIN,URINE Negative (NEGATIVE); BLOOD, URINE Moderate Ery/uL (NEGATIVE); COLOR,URINE Light yellow (YELLOW); KETONES,URINE Negative (NEGATIVE); LEUKOCYTE ESTERASE ,URINE Trace (NEGATIVE); NITRITE, URINE Negative (NEGATIVE); PH,URINE 5.5 (5.0-8.0); PROTEIN,URINE Negative (NEGATIVE); UGLUCOSE Negative (NEGATIVE); UROBILINOGEN,URINE 0.2 EU/dL (0.2)
[2020-03-16 18:21] LABS: BASOPHILS # (AUTO) 0.1 /CMM (0.0-0.2); BASOPHILS % (AUTO) 2.5 % (0.0-2.0); EOSINOPHILS % (AUTO) 1.6 % (0.0-6.0); HEMATOCRIT 37 % (39-51); HEMOGLOBIN 12.5 g/dL (13.5-17.5); LYMPHOCYTES # (AUTO) 2.2 /CMM (0.8-4.8); LYMPHOCYTES % (AUTO) 37.7 % (20.0-44.0); MEAN CORPUSCULAR HGB CONC 34 g/dl (31.0-36.0); MEAN CORPUSCULAR VOLUME 86 fL (80-96); MONOCYTES # (AUTO) 0.7 /CMM (0.1-1.30); MONOCYTES % (AUTO) 12.4 % (2.0-12.0); NEUTROPHILS # (AUTO) 2.7 /CMM (1.8-8.9); NEUTROPHILS % (AUTO) 45.8 % (43.0-81.0); PLATELET COUNT (AUTO) 260 /CMM (150-450); RED BLOOD CELL COUNT(AUTO) 4.29 MIL/uL (4.5-6.0); WHITE BLOOD COUNT (AUTO) 5.9 K/uL (4.3-11.0)
[2020-03-16 18:26] LABS: BACTERIA,URINE Rare /HPF (None Seen)
[2020-03-16 18:30] LABS: CALCIUM, SERUM 8.5 mg/dL (8.5-10.1); CARBON DIOXIDE 31 mmol/L (21-32); CHLORIDE 100 mmol/L (98-107); CREATININE 1.3 mg/dL (0.6-1.3); GLUCOSE 94 mg/dL (74-106); POTASSIUM 3.5 mmol/L (3.5-5.1); SODIUM SERUM 136 mmol/L (136-145); UREA NITROGEN, BLOOD 20 mg/dL (7-18)
[2020-03-16 18:36] LABS: ALANINE AMINOTRANSFERASE 28 U/L (12-78); ALBUMIN 3.6 g/dL (3.4-5.0); ALCOHOL, BLOOD < 3 mg/dL (0-0); ALKALINE PHOSPHATASE 72 U/L (46-116); ASPARTATE AMINOTRANSFERASE 43 U/L (15-37); BILIRUBIN,DIRECT 0.1 mg/dL (0.0-0.2); BILIRUBIN,TOTAL 0.4 mg/dL (0.2-1.0); SALICYLATE 3.3 mg/dL (2.8-20.0); TOTAL PROTEIN, SERUM 9.5 g/dL (6.4-8.2)
[2020-03-16 18:42] LABS: ACETAMINOPHEN 0 ug/ml (10-30)
--- NOTE | 2020-03-16 21:57 | NUR ---
Patient is resting comfortably in bed with eyes closed. Easily aroused. VSS.
--- NOTE | 2020-03-17 00:32 | NUR ---
Patient is resting comfortably in bed with eyes closed. Easily aroused. VSS.
--- NOTE | 2020-03-17 01:40 | NUR ---
CALL FROM [facility] INTAKE. NOT ACCEPTING PT.
--- NOTE | 2020-03-17 05:16 | NUR ---
Patient stating he is no longer suicidal and would like to leave the ER. Dr Holt notified.
--- NOTE | 2020-03-17 05:50 | NUR ---
Patient discharged to home in stable condition. Written and verbal after care instructions given. Patient verbalizes understanding of instruction. Pt ambulated with steady gait. Kwabena rodriguez.
[2020-03-17 05:51] VITALS: BP 127/76
== END 2020-03-17 05:51 | disposition home or self-care (01) ==
LOC: ER 17:36
DX: R45.851 Suicidal ideations (principal); F19.10 Other psychoactive substance abuse, uncomplicated; D64.9 Anemia, unspecified; F32.9 Major depressive disorder, single episode, unspecified; F20.9 Schizophrenia, unspecified; F17.200 Nicotine dependence, unspecified, uncomplicated; Z59.0 Homelessness
CPT/HCPCS: 36415; 80048; 80076; 80305; 80307; 80329; 81001; 85025; 87086; 99283; G0480; 81000-TC

== ENCOUNTER 2020-03-17 16:12 | Emergency (ER) | payer MEDICAID ==
[~2020-03-17] VITALS: Ht 162.6 cm; Wt 59.0 kg
--- NOTE | 2020-03-17 16:15 | NUR ---
PT BIB SELF C/O SI "I WANT TO OVERDOSE ON MY PILLS" PT IS AAOX4, NOT IN RESPIRATORY DISTRESS, V/S STABLE, KEPT RESTED AND COMFORTABLE, WILL CONTINUE TO MONITOR.
--- NOTE | 2020-03-17 16:22 | NUR ---
PT SEEN AND EXAMINED BY
--- NOTE | 2020-03-17 16:30 | NUR ---
SECURITY AT BEDSIDE FOR WANDING.
[2020-03-17 16:44] LABS: BASOPHILS # (AUTO) 0.1 /CMM (0.0-0.2); BASOPHILS % (AUTO) 1.2 % (0.0-2.0); EOSINOPHILS % (AUTO) 1.5 % (0.0-6.0); HEMATOCRIT 36 % (39-51); HEMOGLOBIN 12.4 g/dL (13.5-17.5); LYMPHOCYTES # (AUTO) 2.3 /CMM (0.8-4.8); LYMPHOCYTES % (AUTO) 41.4 % (20.0-44.0); MEAN CORPUSCULAR HGB CONC 34 g/dl (31.0-36.0); MEAN CORPUSCULAR VOLUME 86 fL (80-96); MONOCYTES # (AUTO) 0.7 /CMM (0.1-1.30); MONOCYTES % (AUTO) 12.2 % (2.0-12.0); NEUTROPHILS # (AUTO) 2.5 /CMM (1.8-8.9); NEUTROPHILS % (AUTO) 43.7 % (43.0-81.0); PLATELET COUNT (AUTO) 260 /CMM (150-450); RED BLOOD CELL COUNT(AUTO) 4.22 MIL/uL (4.5-6.0); WHITE BLOOD COUNT (AUTO) 5.7 K/uL (4.3-11.0)
[2020-03-17 16:48] LABS: APPEARANCE,URINE Clear (CLEAR); BILIRUBIN,URINE Negative (NEGATIVE); BLOOD, URINE Trace-intact Ery/uL (NEGATIVE); COLOR,URINE Yellow (YELLOW); KETONES,URINE Negative (NEGATIVE); LEUKOCYTE ESTERASE ,URINE Trace (NEGATIVE); NITRITE, URINE Negative (NEGATIVE); PROTEIN,URINE 30 mg/dl (NEGATIVE); UGLUCOSE Negative (NEGATIVE)
[2020-03-17 16:52] LABS: CALCIUM, SERUM 8.3 mg/dL (8.5-10.1); CARBON DIOXIDE 29 mmol/L (21-32); CHLORIDE 103 mmol/L (98-107); CREATININE 1.5 mg/dL (0.6-1.3); GLUCOSE 109 mg/dL (74-106); POTASSIUM 3.8 mmol/L (3.5-5.1); SODIUM SERUM 137 mmol/L (136-145); UREA NITROGEN, BLOOD 20 mg/dL (7-18)
[2020-03-17 16:59] LABS: ALANINE AMINOTRANSFERASE 27 U/L (12-78); ALBUMIN 3.3 g/dL (3.4-5.0); ALCOHOL, BLOOD < 3 mg/dL (0-0); ALKALINE PHOSPHATASE 74 U/L (46-116); ASPARTATE AMINOTRANSFERASE 29 U/L (15-37); BILIRUBIN,DIRECT 0.1 mg/dL (0.0-0.2); BILIRUBIN,TOTAL 0.3 mg/dL (0.2-1.0)
[2020-03-17 17:06] LABS: BACTERIA,URINE Few /HPF (None Seen); SPERM,URINE Few /HPF (None Seen); SQUAMOUS EPITHELIAL CELL,UR Few /HPF (None Seen)
[2020-03-17 18:34] LABS: SALICYLATE 2.4 mg/dL (2.8-20.0)
[2020-03-17] MEDS ORDERED: OLANZAPINE 5 MG TABLET PO ONE (21:00)
--- NOTE | 2020-03-17 21:08 | NUR ---
Patient is resting comfortably in bed with eyes closed. Easily aroused. VSS.
--- NOTE | 2020-03-18 00:23 | NUR ---
Patient is resting comfortably in bed. Easily aroused. VSS.
--- NOTE | 2020-03-18 01:18 | NUR ---
PT RESTING COMFORTABLY IN BED. VSS. SITTER AT BEDSIDE FOR SAFETY. NO ACUTE DISTRESS NOTED. WILL CONTINUE TO MONITOR
--- NOTE | 2020-03-18 02:10 | NUR ---
CALL FROM [facility]. WILL HAVE BED AVAILABLE IN MORNING AFTER DISCHARGES.
--- NOTE | 2020-03-18 05:56 | NUR ---
PT RESTING COMFORTABLY IN BED. VSS. SITTER AT BEDSIDE FOR SAFETY. NO ACUTE DISTRESS NOTED. WILL CONTINUE TO MONITOR
--- NOTE | 2020-03-18 06:41 | NUR ---
PT RESTING COMFORTABLY IN BED. VSS. SITTER AT BEDSIDE FOR SAFETY. NO ACUTE DISTRESS NOTED. WILL CONTINUE TO MONITOR
--- NOTE | 2020-03-18 08:52 | NUR ---
PAGED DEVONTE KATZ FOR CONSULT
--- NOTE | 2020-03-18 09:17 | NUR ---
PATIENT ASLEEP, AROUSABLE, NO DISTRESS NOTED.
--- NOTE | 2020-03-18 10:00 | NUR ---
PATIENT SEEN BY DEVONTE KATZ.
--- NOTE | 2020-03-18 10:12 | NUR ---
Social Service consult requested by MD for voluntary psychiatric admission. Per MD notes, pt is a 39-year-old male with a known past medical history of HIV, psychiatric illness, schizophrenia, substance abuse, presenting to the emergency department for suicidal ideations and a plan to overdose on his Seroquel. The patient feels paranoid and feels that people are after him on the streets and in the hospital. BUSINESS SALES CONSULTANT conducted chart review and met with the pt bedside. BUSINESS SALES CONSULTANT introduced self and purpose of the visit.BUSINESS SALES CONSULTANT is familiar with the pt from several ED visits. Pt is alert and oriented x 4. Pt is cooperative with SW, however not very forthcoming with information. Pt reports he is homeless but would not elaborate any further. Pt denies drug/alcohol use/abuse, however pt's toxicology shows positive for methamphetamines and cannaboids. Pt reports, he has a psychiatric diagnosis of Bipolar, Schizophrenia and Seizure Disorder. Pt's psychiatric medication includes Depakote. Pt reports he is suicidal with a plan to overdose. Pt is a smoker and smokes cigarettes daily. Pt is requesting breakfast. BUSINESS SALES CONSULTANT informed Tmo in ED regarding pt's wanting breakfast. BUSINESS SALES CONSULTANT provided active listening, supportive counseling and validation of feelings. BUSINESS SALES CONSULTANT was informed that clinicals were faxed to [facility] intake dept. BUSINESS SALES CONSULTANT contacted [facility] intake and spoke with Ariella. [facility] informed BUSINESS SALES CONSULTANT pt has been accepted and they are awaiting two discharges. Pt was accepted at [place]. [facility] to f/u with BRITTON. BUSINESS SALES CONSULTANT updated CRN Flip regarding pt's disposition with [facility]. office services clerk is available for support as needed.
--- NOTE | 2020-03-18 10:21 | NUR ---
PATIENT STATED HE'S NO LONGER SUICIDAL AND HE WANTS TO LEAVE. DR. ROLAND MADE AWARE AND REEVALUATED THE PATIENT. Patient given written and verbal discharge instructions. Patient verbalizes understanding of instructions. Patient is ambulatory with steady gait. Refuses offer of [facility] placement. Patient given list of available shelters in surrounding area.
[2020-03-18 10:22] VITALS: BP 128/77
== END 2020-03-18 10:23 | disposition home or self-care (01) ==
LOC: ER 16:24
DX: R45.851 Suicidal ideations (principal); F29 Unspecified psychosis not due to a substance or known physiological condition; F19.10 Other psychoactive substance abuse, uncomplicated; F15.10 Other stimulant abuse, uncomplicated; F12.10 Cannabis abuse, uncomplicated; N28.9 Disorder of kidney and ureter, unspecified; F20.9 Schizophrenia, unspecified; F31.9 Bipolar disorder, unspecified; R56.9 Unspecified convulsions; Z59.0 Homelessness
CPT/HCPCS: 36415; 80048; 80076; 80305; 80307; 80329; 81001; 85025; 99285; G0480; 81000-TC

== ENCOUNTER 2020-03-31 13:53 | Emergency (ER) | payer MEDICAID ==
[~2020-03-31] VITALS: Ht 162.6 cm; Wt 59.0 kg
--- NOTE | 2020-03-31 14:00 | NUR ---
PT [id number] FROM A BUS STOP C/O SUICIDAL IDEATION, "OVERDOSE ON PILLS", PT IS AAOX4, NOT IN RESPIRATORY DISTRESS, V/S STABLE, KEPT RESTED AND COMFORTABLE, WILL CONTINUE TO MONITOR. SITTER AT BEDSIDE.
--- NOTE | 2020-03-31 14:20 | NUR ---
PT SEEN AND EXAMINED BY .
--- NOTE | 2020-03-31 14:33 | NUR ---
ER PHLEB AT BEDSIDE FOR BLOOD DRAW.
[2020-03-31 15:04] LABS: BASOPHILS # (AUTO) 0.1 /CMM (0.0-0.2); EOSINOPHILS % (AUTO) 2.5 % (0.0-6.0); HEMATOCRIT 48 % (39-51); HEMOGLOBIN 15.8 g/dL (13.5-17.5); LYMPHOCYTES # (AUTO) 2.3 /CMM (0.8-4.8); LYMPHOCYTES % (AUTO) 44.1 % (20.0-44.0); MEAN CORPUSCULAR HGB CONC 33 g/dl (31.0-36.0); MEAN CORPUSCULAR VOLUME 88 fL (80-96); MONOCYTES # (AUTO) 0.4 /CMM (0.1-1.30); MONOCYTES % (AUTO) 8.3 % (2.0-12.0); NEUTROPHILS # (AUTO) 2.3 /CMM (1.8-8.9); NEUTROPHILS % (AUTO) 44.1 % (43.0-81.0); PLATELET COUNT (AUTO) 296 /CMM (150-450); RED BLOOD CELL COUNT(AUTO) 5.38 MIL/uL (4.5-6.0); WHITE BLOOD COUNT (AUTO) 5.1 K/uL (4.3-11.0)
[2020-03-31 15:13] LABS: ALCOHOL, BLOOD < 3 mg/dL (0-0); CALCIUM, SERUM 8.9 mg/dL (8.5-10.1); CARBON DIOXIDE 29 mmol/L (21-32); CHLORIDE 97 mmol/L (98-107); CREATININE 1.4 mg/dL (0.6-1.3); GLUCOSE 111 mg/dL (74-106); POTASSIUM 3.9 mmol/L (3.5-5.1); SODIUM SERUM 134 mmol/L (136-145); UREA NITROGEN, BLOOD 26 mg/dL (7-18)
[2020-03-31 15:13] LABS: APPEARANCE,URINE Clear (CLEAR); BILIRUBIN,URINE Negative (NEGATIVE); BLOOD, URINE Small Ery/uL (NEGATIVE); COLOR,URINE Yellow (YELLOW); KETONES,URINE Negative (NEGATIVE); LEUKOCYTE ESTERASE ,URINE Negative (NEGATIVE); NITRITE, URINE Negative (NEGATIVE); PH,URINE 5.5 (5.0-8.0); PROTEIN,URINE Negative (NEGATIVE); UGLUCOSE Negative (NEGATIVE); UROBILINOGEN,URINE 0.2 EU/dL (0.2)
[2020-03-31 15:22] LABS: BACTERIA,URINE Few /HPF (None Seen); SQUAMOUS EPITHELIAL CELL,UR Few /HPF (None Seen); WBC,URINE 0-2 /HPF (0-3)
--- NOTE | 2020-03-31 17:05 | NUR ---
FAXED CLINICALS TO [facility].
--- NOTE | 2020-03-31 17:46 | NUR ---
PATIENT IN BED AWAKE, WATCHING TELEVISION, HOOKED TO MONITOR, VSS. WILL CONTINUE TO MONITOR ACCORDINGLY, SITTER AT BEDSIDE FOR SAFETY
--- NOTE | 2020-03-31 18:56 | NUR ---
TALKED TO INTAKE AT [facility]. PER DR. BAUER, PT IS ON THE DO NOT ADMIT LIST FOR [facility]. PT IS STATED TO BE VIOLENT WITH STAFF AND PTS.
--- NOTE | 2020-03-31 19:06 | NUR ---
Paged Pura for PET eval
[2020-03-31 19:11] VITALS: BP 114/71
--- NOTE | 2020-03-31 19:11 | NUR ---
REPORT GIVEN TO ROBERTO LUGO FOR THERESA
--- NOTE | 2020-03-31 19:18 | NUR ---
CALLED [facility] FOR TRANSFER. NO BEDS AVAILABLE
--- NOTE | 2020-04-01 00:12 | NUR ---
PT RESTING COMFORTABLY IN BED. VSS. NO ACUTE DISTRESS NOTED. SITTER AT BEDSIDE FOR SAFETY
--- NOTE | 2020-04-01 01:56 | NUR ---
PATIENT UPSET THAT WE DID NOT GET HIM A SODA FAST ENOUGH AND STARTED CURSING AT STAFF. WHEN TOLD THAT HE NEEDS TO RETURN TO HIS BED PATIENT STATED THAT HE WAS NEVER SUICIDAL AND WANTS TO LEAVE THE ER. ON HIS WAY OUT PATIENT CONTINUED TO CURSED AT STAFF AND THREATEN STAFF. DR HARRINGTON AWARE.
== END 2020-04-01 01:52 | disposition home or self-care (01) ==
LOC: ER 14:03
DX: R45.851 Suicidal ideations (principal); R56.9 Unspecified convulsions; F20.9 Schizophrenia, unspecified; F31.9 Bipolar disorder, unspecified; F15.10 Other stimulant abuse, uncomplicated; F12.10 Cannabis abuse, uncomplicated; Z59.0 Homelessness
CPT/HCPCS: 36415; 80048-TC; 80305; 81000-TC; 85025-TC; G0480

== ENCOUNTER 2020-04-02 17:27 | Emergency (ER) | payer MEDICAID ==
[~2020-04-02] VITALS: Ht 165.1 cm; Wt 60.8 kg
--- NOTE | 2020-04-02 17:46 | NUR ---
BIBRA TO ER BED 15. AAOX4. NOT IN RESP DISTRESS. AMBULATORY. CAME IN FOR SUICIDAL IDEATION W/ PLAN TO OVERDOSE W/ PILLS. PT DENIES HI. DENIES VISUAL AND AUDITORY HALLUCINATIONS. PT IS STRIPPED OFF CLOTHING, VISUALLY INSPECTED FOR CONTRABAND, GOEN AND BELONGINGS PLACED IN LOCKER LOCATED IN UTILITY ROOM. PT IS SEEKING VOLUNTARY ADMISSION. 1:1 SITTER AT BEDSIDE. WAS AT BEDSIDE FOR EVAL.
[2020-04-02 17:53] LABS: BASOPHILS # (AUTO) 0.1 /CMM (0.0-0.2); BASOPHILS % (AUTO) 1.1 % (0.0-2.0); EOSINOPHILS % (AUTO) 0.8 % (0.0-6.0); HEMATOCRIT 40 % (39-51); HEMOGLOBIN 13.4 g/dL (13.5-17.5); LYMPHOCYTES # (AUTO) 2.4 /CMM (0.8-4.8); LYMPHOCYTES % (AUTO) 38.1 % (20.0-44.0); MEAN CORPUSCULAR HGB CONC 34 g/dl (31.0-36.0); MEAN CORPUSCULAR VOLUME 86 fL (80-96); MONOCYTES # (AUTO) 0.7 /CMM (0.1-1.30); MONOCYTES % (AUTO) 11.5 % (2.0-12.0); NEUTROPHILS % (AUTO) 48.5 % (43.0-81.0); PLATELET COUNT (AUTO) 274 /CMM (150-450); RED BLOOD CELL COUNT(AUTO) 4.58 MIL/uL (4.5-6.0); WHITE BLOOD COUNT (AUTO) 6.2 K/uL (4.3-11.0)
[2020-04-02 17:58] LABS: APPEARANCE,URINE Clear (CLEAR); BILIRUBIN,URINE Negative (NEGATIVE); BLOOD, URINE Small Ery/uL (NEGATIVE); COLOR,URINE Yellow (YELLOW); KETONES,URINE Negative (NEGATIVE); LEUKOCYTE ESTERASE ,URINE Negative (NEGATIVE); NITRITE, URINE Negative (NEGATIVE); PH,URINE 5.5 (5.0-8.0); PROTEIN,URINE Negative (NEGATIVE); UGLUCOSE Negative (NEGATIVE); UROBILINOGEN,URINE 0.2 EU/dL (0.2)
[2020-04-02 18:00] LABS: CALCIUM, SERUM 8.9 mg/dL (8.5-10.1); CARBON DIOXIDE 29 mmol/L (21-32); CHLORIDE 101 mmol/L (98-107); CREATININE 1.3 mg/dL (0.6-1.3); GLUCOSE 116 mg/dL (74-106); POTASSIUM 3.4 mmol/L (3.5-5.1); SODIUM SERUM 136 mmol/L (136-145); UREA NITROGEN, BLOOD 17 mg/dL (7-18)
[2020-04-02 18:05] LABS: ALANINE AMINOTRANSFERASE 19 U/L (12-78); ALCOHOL, BLOOD < 3 mg/dL (0-0); ALKALINE PHOSPHATASE 63 U/L (46-116); ASPARTATE AMINOTRANSFERASE 25 U/L (15-37); BILIRUBIN,DIRECT 0.2 mg/dL (0.0-0.2); BILIRUBIN,TOTAL 0.6 mg/dL (0.2-1.0); TOTAL PROTEIN, SERUM 10.1 g/dL (6.4-8.2)
[2020-04-02 18:06] LABS: ACETAMINOPHEN 0 ug/ml (10-30); SALICYLATE 1.5 mg/dL (2.8-20.0)
[2020-04-02 18:23] LABS: BACTERIA,URINE Rare /HPF (None Seen); SQUAMOUS EPITHELIAL CELL,UR Rare /HPF (None Seen); WBC,URINE 0-2 /HPF (0-3)
--- NOTE | 2020-04-02 23:45 | NUR ---
GUALBERTO DIAMOND FROM [facility] INTAKE, UNABLE TO ACCEPT PATIENT UNTIL AFTER MORNING DISCHARGES
--- NOTE | 2020-04-02 23:58 | NUR ---
PER JC FROM [place] INTAKE, PT ON DO NOT ADMIT LIST
--- NOTE | 2020-04-03 00:09 | NUR ---
TRANSFER INFO:GUALBERTO DIAMOND FROM [facility] INTAKE. PT ACC[facility]ED TO [facility] AFTER 0900 ACCEPTING MD: DR. BAUER UNIT 2 ROOM 203 A
--- NOTE | 2020-04-03 04:05 | NUR ---
PER MARYJANE FROM [facility] INTAKE, OKAY TO SEND PATIENT TO [facility] AT THIS TIME. WILL SET UP TRANSPORTATION NOW
--- NOTE | 2020-04-03 04:08 | NUR ---
CALLED [facility] FOR TRANSPORTATION. WILL CALL BACK WITH ETA. RESERVATION #[id number]
--- NOTE | 2020-04-03 04:27 | NUR ---
REPORT GIVEN TO BRITTNEY JEWELL FROM [facility]
--- NOTE | 2020-04-03 04:48 | NUR ---
REC'D A CALL FROM HERSON AT [facility] UPDATING US W/ [facility] ETA AT [phone].
[2020-04-03] MEDS ORDERED: OLANZAPINE 10 MG VIAL IM ONE (07:30)
[2020-04-03 07:37] VITALS: BP 135/78
--- NOTE | 2020-04-03 07:39 | NUR ---
PICKED UP BY [facility] IN STABLE CONDITION. PATIENT WILL BE BROUGHT TO [facility]. CLINICALS PROVIDED TO EMS. ALL BELONGINGS RETURNED TO THE PATIENT.
== END 2020-04-03 07:42 ==
LOC: ER 17:33
DX: R45.851 Suicidal ideations (principal); F19.10 Other psychoactive substance abuse, uncomplicated; F31.9 Bipolar disorder, unspecified; G40.909 Epilepsy, unspecified, not intractable, without status epilepticus; F20.9 Schizophrenia, unspecified; Z59.0 Homelessness
CPT/HCPCS: 36415; 80048; 80076; 80305; 80307; 80329; 81001; 85025; 99285; G0480; 81000-TC

== ENCOUNTER 2020-05-07 12:45 | Emergency (ER) | payer MEDICAID ==
[~2020-05-07] VITALS: Ht 162.6 cm; Wt 63.5 kg
--- NOTE | 2020-05-07 12:45 | NUR ---
PT BIB FROM THE STREET C/O SI " I WANT TO OD MY SELF" PT IS AAOX4, NOT IN RESPIRATORY DISTRESS, V/S STABLE, KEPT RESTED AND COMFORTABLE. WILL CONTINUE TO MONITOR.
--- NOTE | 2020-05-07 12:51 | NUR ---
CALLED SECURITY FOR WANDING.
[2020-05-07 13:23] LABS: BASOPHILS # (AUTO) 0.1 /CMM (0.0-0.2); BASOPHILS % (AUTO) 0.9 % (0.0-2.0); EOSINOPHILS % (AUTO) 1.2 % (0.0-6.0); HEMATOCRIT 38 % (39-51); HEMOGLOBIN 12.8 g/dL (13.5-17.5); LYMPHOCYTES # (AUTO) 1.9 /CMM (0.8-4.8); LYMPHOCYTES % (AUTO) 27.6 % (20.0-44.0); MEAN CORPUSCULAR HGB CONC 34 g/dl (31.0-36.0); MEAN CORPUSCULAR VOLUME 85 fL (80-96); MONOCYTES # (AUTO) 0.8 /CMM (0.1-1.30); MONOCYTES % (AUTO) 12.4 % (2.0-12.0); NEUTROPHILS # (AUTO) 3.9 /CMM (1.8-8.9); NEUTROPHILS % (AUTO) 57.9 % (43.0-81.0); PLATELET COUNT (AUTO) 306 /CMM (150-450); RED BLOOD CELL COUNT(AUTO) 4.42 MIL/uL (4.5-6.0); WHITE BLOOD COUNT (AUTO) 6.8 K/uL (4.3-11.0)
[2020-05-07 13:30] LABS: CALCIUM, SERUM 8.9 mg/dL (8.5-10.1); CARBON DIOXIDE 28 mmol/L (21-32); CHLORIDE 99 mmol/L (98-107); CREATININE 1.3 mg/dL (0.6-1.3); GLUCOSE 80 mg/dL (74-106); POTASSIUM 3.6 mmol/L (3.5-5.1); SODIUM SERUM 135 mmol/L (136-145); UREA NITROGEN, BLOOD 24 mg/dL (7-18)
[2020-05-07 13:36] LABS: ALANINE AMINOTRANSFERASE 21 U/L (12-78); ALBUMIN 3.8 g/dL (3.4-5.0); ALCOHOL, BLOOD < 3 mg/dL (0-0); ALKALINE PHOSPHATASE 74 U/L (46-116); ASPARTATE AMINOTRANSFERASE 34 U/L (15-37); BILIRUBIN,DIRECT 0.2 mg/dL (0.0-0.2); BILIRUBIN,TOTAL 0.6 mg/dL (0.2-1.0); TOTAL PROTEIN, SERUM 9.7 g/dL (6.4-8.2)
[2020-05-07 13:37] LABS: ACETAMINOPHEN 0 ug/ml (10-30); SALICYLATE 2.4 mg/dL (2.8-20.0)
--- NOTE | 2020-05-07 13:37 | NUR ---
ER PHLEB AT BEDSIDE FOR BLOOD DRAW.
--- NOTE | 2020-05-07 14:19 | NUR ---
URINE SPECIMEN COLLECTED AND SENT TO LAB.
[2020-05-07 14:24] LABS: APPEARANCE,URINE Clear (CLEAR); BILIRUBIN,URINE Negative (NEGATIVE); BLOOD, URINE Small Ery/uL (NEGATIVE); COLOR,URINE Yellow (YELLOW); KETONES,URINE Trace (NEGATIVE); LEUKOCYTE ESTERASE ,URINE Negative (NEGATIVE); NITRITE, URINE Negative (NEGATIVE); PH,URINE 5.5 (5.0-8.0); PROTEIN,URINE Negative (NEGATIVE); UGLUCOSE Negative (NEGATIVE); UROBILINOGEN,URINE 0.2 EU/dL (0.2)
[2020-05-07 14:30] LABS: BACTERIA,URINE None seen /HPF (None Seen); SQUAMOUS EPITHELIAL CELL,UR None Seen /HPF (None Seen); WBC,URINE 0-2 /HPF (0-3)
[2020-05-07] MEDS ORDERED: OLANZAPINE 5 MG TABLET ONE (14:38)
[2020-05-07] MEDS: OLANZAPINE 5 MG TABLET PO ONE ×2 (14:39→14:43)
--- NOTE | 2020-05-07 14:43 | NUR ---
PT REFUSING ZYPREXIA STATTING HE GETS LOCK JAW. ERMD AWARE.
--- NOTE | 2020-05-07 16:38 | NUR ---
This SW was assigned to follow-up on this case, after BRITTON Cabrera initiated a referral to [facility]. BRITTON faxed patient's clinicals to Kevin at [facility] (tel #[phone]; fax # [phone]). BRITTON also spoke with Kevin, who stated they will review the clinicals, but that they do have beds available. BRITTON informed patient's nurse Drew that the clinicals have been faxed.
--- NOTE | 2020-05-07 16:45 | NUR ---
BRITTON spoke with Kevin at [facility] [phone], who confirmed receipt of the fax. Kevin stated they will contact the ED nurse after reviewing the records and provide the ED nurse with transfer instructions. BRITTON provided Kevin with the contact number to the ED [phone]. BRITTON then spoke with Norma in the ED, and informed him that [facility] will be contacting the ED with transfer instructions as soon as they finalize reviewing the clinicals. Norma expressed understanding.
[2020-05-07 18:07] VITALS: BP 122/76
--- NOTE | 2020-05-07 18:09 | NUR ---
[facility] B[facility] TO [facility] 190
--- NOTE | 2020-05-07 18:14 | NUR ---
report given to linda at [facility]. awaiting transfer.
--- NOTE | 2020-05-07 19:30 | NUR ---
[facility] AT BEDSIDE FOR TRANSPORT.
== END 2020-05-07 19:57 ==
LOC: ER 12:51
DX: R45.851 Suicidal ideations (principal); F23 Brief psychotic disorder; F32.9 Major depressive disorder, single episode, unspecified; F17.200 Nicotine dependence, unspecified, uncomplicated; Z59.0 Homelessness
CPT/HCPCS: 36415; 80048; 80076; 80305; 80307; 80329; 81001; 85025; 99285; G0480; 81000-TC

== ENCOUNTER 2020-05-15 00:51 | Emergency (ER) | payer MEDICAID ==
[~2020-05-15] VITALS: Ht 165.1 cm; Wt 63.5 kg
--- NOTE | 2020-05-15 00:59 | NUR ---
TO ER BED 13 AMBULATORY [facility] C/O SI WITH PLAN TO OVERDOSE ON MEDS. PT DENIES HI. PT AAOX4 NO ACUTE DISTRESS NOTED, RESP EVEN AND UNLABORED. PT CALM AND COOPERATIVE AT THIS TIME. PLACE PT ON HOSPITAL GOWN, ALL BELONGINGS REMOVED FROM ROOM. 1:1 SITTER AT BEDSIDE FOR PT SAFETY. URINE SAMPLE COLLECTED AND SENT TO LAB.
[2020-05-15 02:17] LABS: BASOPHILS % (AUTO) 0.6 % (0.0-2.0); EOSINOPHILS % (AUTO) 0.7 % (0.0-6.0); HEMATOCRIT 37 % (39-51); HEMOGLOBIN 12.7 g/dL (13.5-17.5); LYMPHOCYTES # (AUTO) 2.1 /CMM (0.8-4.8); LYMPHOCYTES % (AUTO) 26.2 % (20.0-44.0); MEAN CORPUSCULAR HGB CONC 34 g/dl (31.0-36.0); MEAN CORPUSCULAR VOLUME 85 fL (80-96); MONOCYTES # (AUTO) 0.9 /CMM (0.1-1.30); MONOCYTES % (AUTO) 10.7 % (2.0-12.0); NEUTROPHILS # (AUTO) 4.9 /CMM (1.8-8.9); NEUTROPHILS % (AUTO) 61.8 % (43.0-81.0); PLATELET COUNT (AUTO) 300 /CMM (150-450); RED BLOOD CELL COUNT(AUTO) 4.39 MIL/uL (4.5-6.0); WHITE BLOOD COUNT (AUTO) 7.9 K/uL (4.3-11.0)
[2020-05-15 02:20] LABS: APPEARANCE,URINE CLEAR (CLEAR); BILIRUBIN,URINE NEGATIVE (NEGATIVE); BLOOD, URINE TRACE-INTA Ery/uL (NEGATIVE); COLOR,URINE YELLOW (YELLOW); KETONES,URINE NEGATIVE (NEGATIVE); LEUKOCYTE ESTERASE ,URINE SMALL (NEGATIVE); NITRITE, URINE NEGATIVE (NEGATIVE); PROTEIN,URINE NEGATIVE (NEGATIVE); UGLUCOSE NEGATIVE (NEGATIVE); UROBILINOGEN,URINE 0.2 EU/dL (0.2)
[2020-05-15 02:25] LABS: BACTERIA,URINE Few /HPF (None Seen); SQUAMOUS EPITHELIAL CELL,UR Moderate /HPF (None Seen); WBC,URINE 21-50 /HPF (0-3)
[2020-05-15] MEDS ORDERED: QUETIAPINE FUMARATE 100 MG TABLET PO SCH (02:30)
--- NOTE | 2020-05-15 02:36 | NUR ---
PT ASLEEP, NO ACUTE DISTRESS NOTED, RESP EVEN AND UNLABORED. CALL LIG WITHIN REACH. 1:1 SITTER REMAINS AT BEDSIDE FOR PT SAFETY.
[2020-05-15 02:38] LABS: ALANINE AMINOTRANSFERASE 32 U/L (12-78); ALBUMIN 3.7 g/dL (3.4-5.0); ALKALINE PHOSPHATASE 86 U/L (46-116); ASPARTATE AMINOTRANSFERASE 71 U/L (15-37); BILIRUBIN,DIRECT 0.1 mg/dL (0.0-0.2); BILIRUBIN,TOTAL 0.4 mg/dL (0.2-1.0); CALCIUM, SERUM 8.7 mg/dL (8.5-10.1); CARBON DIOXIDE 29 mmol/L (21-32); CHLORIDE 100 mmol/L (98-107); CREATININE 1.2 mg/dL (0.6-1.3); GLUCOSE 86 mg/dL (74-106); POTASSIUM 3.8 mmol/L (3.5-5.1); SALICYLATE 3.2 mg/dL (2.8-20.0); SODIUM SERUM 136 mmol/L (136-145); TOTAL PROTEIN, SERUM 9.9 g/dL (6.4-8.2); UREA NITROGEN, BLOOD 29 mg/dL (7-18)
[2020-05-15 02:39] LABS: ACETAMINOPHEN 0 ug/ml (10-30); ALCOHOL, BLOOD < 3 mg/dL (0-0)
[2020-05-15] MEDS ORDERED: NITROFURANTOIN/NITROFURAN MAC 100 MG CAPSULE PO ONE (03:00)
--- NOTE | 2020-05-15 03:00 | NUR ---
CLINICALS FAXED TO [facility] FOR VOLUNTARY PSYCH ADMISSION.
[2020-05-15] MEDS ORDERED: QUETIAPINE FUMARATE 25 MG TABLET ONE (03:58)
[2020-05-15] MEDS ORDERED: NITROFURANTOIN/NITROFURAN MAC 100 MG CAPSULE ONE (03:59)
--- NOTE | 2020-05-15 05:15 | NUR ---
PT ACC[facility]ED [facility] ACCEPTING MD: DR. BAUER NUMBER FOR REPORT: [phone] UNIT 2
--- NOTE | 2020-05-15 05:25 | NUR ---
CALLED [facility] FOR TRANSPORTATION, WILL CALL BACK WITH RESERVATION #[id number] Addendum: 05/15/20 at 0632 by MATTI CANCELLED RESERVATION
--- NOTE | 2020-05-15 05:58 | NUR ---
REPORT GIVEN TO BRITTNEY MILLER FROM [facility] FOR [facility]
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
--- NOTE | 2020-05-15 07:36 | NUR ---
PATIENT IN BED, ASLEEP, EASILY AROUSABLE BY VOICE. HOOKED TO MONITOR, VSS. SITTER AT BEDSIDE FOR SAFETY. WILL CONTINUE TO MONITOR ACCORDINGLY
--- NOTE | 2020-05-15 09:42 | NUR ---
BREAKFAST TRAY PROVIDED. TOLERATING PO WELL.
--- NOTE | 2020-05-15 11:12 | NUR ---
PATIENT IN BED,AWAKE. HOOKED TO MONITOR, VSS. SITTER AT BEDSIDE FOR SAFETY. WILL CONTINUE TO MONITOR ACCORDINGLY. KEPT COMFORTABLE.
--- NOTE | 2020-05-15 13:22 | NUR ---
LUNCH TRAY PROVIDED. PATIENT TOLERATING PO WELL
--- NOTE | 2020-05-15 15:45 | NUR ---
PATIENT IN BED, ASLEEP, EASILY AROUSABLE BY VOICE. HOOKED TO MONITOR, VSS. SITTER AT BEDSIDE FOR SAFETY. WILL CONTINUE TO MONITOR ACCORDINGLY
--- NOTE | 2020-05-15 17:03 | NUR ---
CALL BACK FROM LORENA FROM [facility],WANTS RAPID COVID TEST DONE,DR NUNES AWARE.
--- NOTE | 2020-05-15 17:39 | NUR ---
Juan from [facility] awaiting for COVID, Track Broom Operator contacted Drew to inform that they will follow up with ED.
--- NOTE | 2020-05-15 17:53 | NUR ---
call back from Juan, he said, it's okay to send the patient now,report to [phone],accepted by DR Velez
--- NOTE | 2020-05-15 18:19 | NUR ---
CALLED [facility] TO AR[facility] S AMBULANCE, AWAITING CALL BACK WITH CAROLA
--- NOTE | 2020-05-15 18:45 | NUR ---
[facility] ETA 2030
--- NOTE | 2020-05-15 20:01 | NUR ---
[facility] DELAYED. ETA 2100
--- NOTE | 2020-05-15 20:14 | NUR ---
REPORT GIVEN TO OLN LUGO OF [facility]
[2020-05-15 21:19] VITALS: BP 121/77
--- NOTE | 2020-05-15 21:30 | NUR ---
REPORT GIVEN TO [facility] FOR TRANSPORTATION THERESA. PT TRANSFERRED IN STABLE CONDITION
== END 2020-05-15 21:30 ==
LOC: ER 00:52
DX: R45.851 Suicidal ideations (principal); F12.10 Cannabis abuse, uncomplicated; F15.20 Other stimulant dependence, uncomplicated; F31.9 Bipolar disorder, unspecified; F20.9 Schizophrenia, unspecified; Z59.0 Homelessness; F17.290 Nicotine dependence, other tobacco product, uncomplicated; F19.10 Other psychoactive substance abuse, uncomplicated; N30.90 Cystitis, unspecified without hematuria
CPT/HCPCS: 36415; 80048; 80076; 80305; 80307; 80329; 81001; 85025; 87086; 87426; 99285; 99406; C9803; G0480; 81000-TC

== ENCOUNTER 2020-05-22 17:19 | Emergency (ER) | payer MEDICAID ==
[~2020-05-22] VITALS: Ht 165.1 cm; Wt 64.4 kg
[2020-05-22 17:30] VITALS: BP 136/85
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
[2020-05-22 17:51] LABS: BASOPHILS # (AUTO) 0.1 /CMM (0.0-0.2); EOSINOPHILS % (AUTO) 0.9 % (0.0-6.0); HEMATOCRIT 39 % (39-51); HEMOGLOBIN 12.7 g/dL (13.5-17.5); LYMPHOCYTES # (AUTO) 2.3 /CMM (0.8-4.8); LYMPHOCYTES % (AUTO) 18.8 % (20.0-44.0); MEAN CORPUSCULAR HGB CONC 33 g/dl (31.0-36.0); MEAN CORPUSCULAR VOLUME 87 fL (80-96); MONOCYTES # (AUTO) 1.4 /CMM (0.1-1.30); MONOCYTES % (AUTO) 11.3 % (2.0-12.0); NEUTROPHILS # (AUTO) 8.3 /CMM (1.8-8.9); PLATELET COUNT (AUTO) 329 /CMM (150-450); RED BLOOD CELL COUNT(AUTO) 4.45 MIL/uL (4.5-6.0); WHITE BLOOD COUNT (AUTO) 12.2 K/uL (4.3-11.0)
[2020-05-22 17:58] LABS: CALCIUM, SERUM 9.2 mg/dL (8.5-10.1); CARBON DIOXIDE 28 mmol/L (21-32); CHLORIDE 101 mmol/L (98-107); CREATININE 1.3 mg/dL (0.6-1.3); GLUCOSE 94 mg/dL (74-106); POTASSIUM 3.7 mmol/L (3.5-5.1); SODIUM SERUM 138 mmol/L (136-145); UREA NITROGEN, BLOOD 21 mg/dL (7-18)
[2020-05-22 18:04] LABS: ALANINE AMINOTRANSFERASE 20 U/L (12-78); ALBUMIN 3.9 g/dL (3.4-5.0); ALKALINE PHOSPHATASE 74 U/L (46-116); ASPARTATE AMINOTRANSFERASE 25 U/L (15-37); BILIRUBIN,DIRECT 0.1 mg/dL (0.0-0.2); BILIRUBIN,TOTAL 0.5 mg/dL (0.2-1.0); SALICYLATE 3.1 mg/dL (2.8-20.0); TOTAL PROTEIN, SERUM 11.1 g/dL (6.4-8.2)
[2020-05-22 18:05] LABS: ACETAMINOPHEN 0 ug/ml (10-30); ALCOHOL, BLOOD < 3 mg/dL (0-0)
[2020-05-22 18:28] LABS: APPEARANCE,URINE Clear (CLEAR); BILIRUBIN,URINE Negative (NEGATIVE); BLOOD, URINE Moderate Ery/uL (NEGATIVE); COLOR,URINE Yellow (YELLOW); KETONES,URINE Negative (NEGATIVE); LEUKOCYTE ESTERASE ,URINE Negative (NEGATIVE); NITRITE, URINE Negative (NEGATIVE); PH,URINE 5.5 (5.0-8.0); PROTEIN,URINE 30 mg/dl (NEGATIVE); UGLUCOSE Negative (NEGATIVE); UROBILINOGEN,URINE 0.2 EU/dL (0.2)
[2020-05-22 19:35] LABS: BACTERIA,URINE Few /HPF (None Seen); SQUAMOUS EPITHELIAL CELL,UR Few /HPF (None Seen); URINE AMORPHOUS URATE Few /HPF (None Seen)
[2020-05-22 19:36] LABS: MUCUS,URINE Moderate /LPF (None Seen)
--- NOTE | 2020-05-22 21:02 | NUR ---
PT ACCEPTED TO [facility] BY DR BAUER. ROOM 217-A. # FOR REPORT [phone]
--- NOTE | 2020-05-22 21:09 | NUR ---
[facility] RESERVATION#[id number]
--- NOTE | 2020-05-22 21:43 | NUR ---
RE'D A CALL FROM [facility] [facility] W/ ETA 90 MIN
--- NOTE | 2020-05-22 23:00 | NUR ---
REPORT GIVEN TO [facility]
--- NOTE | 2020-05-22 23:01 | NUR ---
REPORT GIVEN TO [facility] FOR TRASNFERRING RESPONSIBILITIES AND THERESA.
== END 2020-05-22 23:09 ==
LOC: ER 17:27
DX: R45.851 Suicidal ideations (principal); F20.9 Schizophrenia, unspecified; F32.9 Major depressive disorder, single episode, unspecified; F15.10 Other stimulant abuse, uncomplicated; F12.10 Cannabis abuse, uncomplicated; F17.200 Nicotine dependence, unspecified, uncomplicated; Z59.0 Homelessness
CPT/HCPCS: 36415; 80048; 80076; 80305; 80307; 80329; 81001; 85025; 87086; 99285; G0480; 81000-TC

== ENCOUNTER 2020-05-29 14:55 | Emergency (ER) | payer MEDICAID ==
[~2020-05-29] VITALS: Ht 162.6 cm; Wt 65.3 kg
--- NOTE | 2020-05-29 15:01 | NUR ---
CALLED SECURITY FOR WANDING.
--- NOTE | 2020-05-29 15:10 | NUR ---
BIBRA TO ER BED 15. AAOX4. NOT IN RESP DISTRESS. AMBULATORY. CAME IN FOR SUICIDAL IDEATION W/ PLAN TO OVERDOSE ON PILLS. DENIES HI. DENIES AUDITORY AND VISUAL HALLUCINATIONS. PT'S BELONGINGS WAS TAKEN AWAY AND PLACE IN LOCKER LOCATED IN UTILITY ROOM. PT GOWN, VISUAL INSPECTED AND WANDED BY SECURITY. 1:1 SITTER AT BEDSIDE. WAS AT THE BEDSIDE FOR EVAL.
[2020-05-29 15:42] LABS: BASOPHILS % (AUTO) 0.8 % (0.0-2.0); EOSINOPHILS % (AUTO) 0.8 % (0.0-6.0); HEMATOCRIT 34 % (39-51); HEMOGLOBIN 11.6 g/dL (13.5-17.5); LYMPHOCYTES # (AUTO) 2.3 /CMM (0.8-4.8); LYMPHOCYTES % (AUTO) 39.7 % (20.0-44.0); MEAN CORPUSCULAR HGB CONC 34 g/dl (31.0-36.0); MEAN CORPUSCULAR VOLUME 86 fL (80-96); MONOCYTES # (AUTO) 0.7 /CMM (0.1-1.30); MONOCYTES % (AUTO) 12.3 % (2.0-12.0); NEUTROPHILS # (AUTO) 2.6 /CMM (1.8-8.9); NEUTROPHILS % (AUTO) 46.4 % (43.0-81.0); PLATELET COUNT (AUTO) 278 /CMM (150-450); RED BLOOD CELL COUNT(AUTO) 4.01 MIL/uL (4.5-6.0); WHITE BLOOD COUNT (AUTO) 5.7 K/uL (4.3-11.0)
[2020-05-29 15:52] LABS: CALCIUM, SERUM 8.4 mg/dL (8.5-10.1); CARBON DIOXIDE 28 mmol/L (21-32); CHLORIDE 104 mmol/L (98-107); CREATININE 1.2 mg/dL (0.6-1.3); GLUCOSE 116 mg/dL (74-106); POTASSIUM 4.2 mmol/L (3.5-5.1); SODIUM SERUM 137 mmol/L (136-145); UREA NITROGEN, BLOOD 15 mg/dL (7-18)
[2020-05-29 15:57] LABS: ALANINE AMINOTRANSFERASE 25 U/L (12-78); ALBUMIN 3.4 g/dL (3.4-5.0); ALCOHOL, BLOOD 4 mg/dL (0-0); ALKALINE PHOSPHATASE 62 U/L (46-116); ASPARTATE AMINOTRANSFERASE 36 U/L (15-37); BILIRUBIN,DIRECT 0.1 mg/dL (0.0-0.2); BILIRUBIN,TOTAL 0.3 mg/dL (0.2-1.0); SALICYLATE 2.8 mg/dL (2.8-20.0); TOTAL PROTEIN, SERUM 9.2 g/dL (6.4-8.2)
--- NOTE | 2020-05-29 16:25 | NUR ---
This SW met with the patient in the ED. Patient is a 39 year-old Male. Patient was alert and orientedx4. Patient was able to confirm demographics on face sheet including date of and social security number. Patient reports in the past crystal meth use. Patient currently reports marijuana use. Patient reported to this SW that patient currently receives $221 a month in general relief funds and $100 a month in food stamps. Patient reports that he has been diagnosed with bipolar and schizophrenia disorders. Patient reports that going to mental health hospitals has been helpful because he does not have an outpatient foot and ankle surgeon. Patient denied resources including year-long housing, hygiene, and mental health stating "I got those from here last time, I haven't used them yet." Patient reports that he was at [facility] prior to admission. Patient would like to undergo voluntary pshyciatric treatment at [facility]. This SW to remain available for all needs regarding the patient.
--- NOTE | 2020-05-29 16:28 | NUR ---
This SW faxed over clinicals to [facility]. Kevin provided fax number . BRITTON to remain available for all needs regarding the patient.
--- NOTE | 2020-05-29 16:51 | NUR ---
RECEIVED A CALL FROM [facility]. PT JUST LEFT [facility] AND CAN NOT BE ADMITTED THERE FOR THE NEXT 72HRS. PT IS "DO NOT ADMIT" TO [facility] D[facility] [place]. WILL CALL BACK IF PT CAN BE ADMITTED TO [facility]
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
--- NOTE | 2020-05-29 16:59 | NUR ---
CALLED [facility] REGARDING ADMISSION. OVIDIO WILL CALL BACK
[2020-05-29 17:12] LABS: APPEARANCE,URINE CLEAR (CLEAR); BILIRUBIN,URINE NEGATIVE (NEGATIVE); BLOOD, URINE NEGATIVE Ery/uL (NEGATIVE); COLOR,URINE YELLOW (YELLOW); KETONES,URINE TRACE (NEGATIVE); LEUKOCYTE ESTERASE ,URINE NEGATIVE (NEGATIVE); NITRITE, URINE NEGATIVE (NEGATIVE); PROTEIN,URINE NEGATIVE (NEGATIVE); UGLUCOSE NEGATIVE (NEGATIVE); UROBILINOGEN,URINE 0.2 EU/dL (0.2)
--- NOTE | 2020-05-29 17:23 | NUR ---
PT ACCEPTED AT THE [facility] FOR [facility]MISSION. CALL [phone] FOR REPORT. ACCEPTING , DR RAMIREZ AND DR. MENESES.
[2020-05-29 17:24] LABS: ACETAMINOPHEN < 10 ug/ml (10-30)
[2020-05-29 17:25] LABS: BACTERIA,URINE None seen /HPF (None Seen); SQUAMOUS EPITHELIAL CELL,UR 0-2 /HPF (None Seen); WBC,URINE 0-2 /HPF (0-3)
[2020-05-29 17:29] VITALS: BP 132/75
--- NOTE | 2020-05-29 17:30 | NUR ---
REPORT GIVEN TO BRITTNEY VELA FOR [facility] AT THE [facility]
--- NOTE | 2020-05-29 17:43 | NUR ---
CALLED [facility] FOR [facility]BULANCE ETA TO FOLLOW RES#[phone]
--- NOTE | 2020-05-29 17:49 | NUR ---
call from [facility] yav=[phone]
--- NOTE | 2020-05-29 20:19 | NUR ---
CALLED [facility] DISPATCH. DELAYED, NEW ETA 1 HOUR
--- NOTE | 2020-05-29 20:32 | NUR ---
PATIENT AAOX4, VSS, RESPIRATIONS EVEN AND UNLABORED ON RA W/ NAD NOTED. PT CALM AND COOPERATIVE. WILL CONTINUE TO MONITOR
--- NOTE | 2020-05-29 21:13 | NUR ---
PATIENT'S BELONGINGS PROVIDED TO THE TRANSPORT TEAM.
--- NOTE | 2020-05-29 21:14 | NUR ---
REPORT GIVEN TO TRANSPORT TEAM FOR THERESA. AND TRANSFERRING RESPONSIBILTIES.
--- NOTE | 2020-05-29 21:15 | NUR ---
PATIENT IS TAKEN AWAY BY TRANSPORT TEAM.
== END 2020-05-29 21:16 ==
LOC: ER 14:57
DX: R45.851 Suicidal ideations (principal); F19.10 Other psychoactive substance abuse, uncomplicated; F32.9 Major depressive disorder, single episode, unspecified; F20.9 Schizophrenia, unspecified; F12.10 Cannabis abuse, uncomplicated; Z59.0 Homelessness
CPT/HCPCS: 36415; 80048; 80076; 80305; 80307; 80329; 81001; 85025; 99285; G0480; 81000-TC

== ENCOUNTER 2020-06-12 15:49 | Emergency (ER) | payer MEDICAID ==
--- NOTE | 2020-06-12 15:55 | NUR ---
called in ed waiting room. no response
--- NOTE | 2020-06-12 16:38 | NUR ---
called for the second time. not in ed waiting room.
== END 2020-06-12 16:41 | disposition left against medical advice (07) ==
LOC: ER 15:55
DX: Z53.21 Procedure and treatment not carried out due to patient leaving prior to being seen by health care provider (principal)

== ENCOUNTER 2020-06-20 08:11 | Emergency (ER) | payer MEDICAID ==
[~2020-06-20] VITALS: Ht 162.6 cm; Wt 70.3 kg
--- NOTE | 2020-06-20 08:15 | NUR ---
pt bibra from the streets to er bed 13 c/o suicidal ideation w/ plan to overdose on prescription medication. pt seen in Ed multiple times for same complaints. pt gowned. security at bedside for wanding. belongings to safe locker. sitter at bedside. awaiting md ceron.
--- NOTE | 2020-06-20 08:38 | NUR ---
placed on 5150 dts by lapd.
[2020-06-20 09:01] LABS: BASOPHILS # (AUTO) 0.1 /CMM (0.0-0.2); BASOPHILS % (AUTO) 0.5 % (0.0-2.0); EOSINOPHILS % (AUTO) 0.3 % (0.0-6.0); HEMATOCRIT 38 % (39-51); LYMPHOCYTES # (AUTO) 1.7 /CMM (0.8-4.8); LYMPHOCYTES % (AUTO) 17.6 % (20.0-44.0); MEAN CORPUSCULAR HGB CONC 34 g/dl (31.0-36.0); MEAN CORPUSCULAR VOLUME 87 fL (80-96); MONOCYTES # (AUTO) 0.9 /CMM (0.1-1.30); MONOCYTES % (AUTO) 9.6 % (2.0-12.0); NEUTROPHILS # (AUTO) 6.8 /CMM (1.8-8.9); PLATELET COUNT (AUTO) 294 /CMM (150-450); RED BLOOD CELL COUNT(AUTO) 4.38 MIL/uL (4.5-6.0); WHITE BLOOD COUNT (AUTO) 9.4 K/uL (4.3-11.0)
[2020-06-20 09:06] LABS: APPEARANCE,URINE Clear (CLEAR); BILIRUBIN,URINE Negative (NEGATIVE); BLOOD, URINE Small Ery/uL (NEGATIVE); COLOR,URINE Yellow (YELLOW); KETONES,URINE Negative (NEGATIVE); LEUKOCYTE ESTERASE ,URINE Negative (NEGATIVE); NITRITE, URINE Negative (NEGATIVE); PH,URINE 5.5 (5.0-8.0); PROTEIN,URINE Negative (NEGATIVE); UGLUCOSE Negative (NEGATIVE); UROBILINOGEN,URINE 0.2 EU/dL (0.2)
[2020-06-20 09:14] LABS: BACTERIA,URINE Rare /HPF (None Seen); SQUAMOUS EPITHELIAL CELL,UR Rare /HPF (None Seen); WBC,URINE 0-2 /HPF (0-3)
[2020-06-20 09:51] LABS: CALCIUM, SERUM 8.8 mg/dL (8.5-10.1); CARBON DIOXIDE 28 mmol/L (21-32); CHLORIDE 102 mmol/L (98-107); CREATININE 1.3 mg/dL (0.6-1.3); GLUCOSE 87 mg/dL (74-106); POTASSIUM 3.8 mmol/L (3.5-5.1); SODIUM SERUM 136 mmol/L (136-145); UREA NITROGEN, BLOOD 25 mg/dL (7-18)
[2020-06-20 09:54] LABS: ACETAMINOPHEN 0 ug/ml (10-30); ALANINE AMINOTRANSFERASE 25 U/L (12-78); ALCOHOL, BLOOD < 3 mg/dL (0-0); ALKALINE PHOSPHATASE 66 U/L (46-116); ASPARTATE AMINOTRANSFERASE 60 U/L (15-37); BILIRUBIN,DIRECT 0.1 mg/dL (0.0-0.2); BILIRUBIN,TOTAL 0.5 mg/dL (0.2-1.0); SALICYLATE 2.7 mg/dL (2.8-20.0); TOTAL PROTEIN, SERUM 10.4 g/dL (6.4-8.2)
--- NOTE | 2020-06-20 11:46 | NUR ---
This SW with the assistance of ILENE in intake ([phone]) will place the patient with their 5150 hold in a psychiatric facility.
--- NOTE | 2020-06-20 11:48 | NUR ---
This SW met with the patient at bedside at [facility] ER. Patient has been seen by this SW before. Patient is a 39 year-old Male. Patient was alert and orientedx4. Patient was able to confirm demographics on face sheet including date of and social security number. Patient reports in the past crystal meth use. Patient currently reports marijuana use. Patient reported to this SW that patient currently receives $221 a month in general relief funds and $100 a month in food stamps. Patient reports that he has been diagnosed with bipolar and schizophrenia disorders. Patient reports that going to mental health hospitals has been helpful because he does not have an outpatient activities coordinator. Patient wanting resources including year-long housing, hygiene, and mental health. Patient reports wanting to be mentally stable "to help live my life being homeless". SW to provide these resources and with help from GG from intake [address] the patient with 5150 hold. This SW to remain available for all needs regarding the patient.
[2020-06-20 12:31] VITALS: BP 140/81
--- NOTE | 2020-06-20 12:31 | NUR ---
Patient given written and verbal discharge instructions. Patient verbalizes understanding of instructions. Patient is ambulatory with steady gait. Refuses offer of longterm placement. Patient given list of available shelters in surrounding area. Taxi voucher provided, ambulatory with steady gait.
--- NOTE | 2020-06-20 12:33 | NUR ---
This SW provided the patient with mental health, year-long shelters, hygiene, food pantries, and address to [facility] as patient wanted [facility] to transport him there. Patient overlooked them and stated "I know all of these places already, I'm good." and handed it back to this SW. Home Health Care Worker provided taxi transport (voucher [phone] from Nursing Tick Inspector) to [facility] as patient had his bicycle there and wanted to pick it up. This was approved by ELAINA Sorensen,JUNIOR ACCOUNTING CLERK,BCJose.
== END 2020-06-20 12:31 | disposition home or self-care (01) ==
LOC: ER 08:13
DX: F15.10 Other stimulant abuse, uncomplicated (principal); F20.9 Schizophrenia, unspecified; F32.9 Major depressive disorder, single episode, unspecified; F17.200 Nicotine dependence, unspecified, uncomplicated; Z59.0 Homelessness
CPT/HCPCS: 36415; 80048; 80076; 80305; 80307; 80329; 81001; 85025; 99285; G0480; 81000-TC

== ENCOUNTER 2020-06-24 15:12 | Emergency (ER) | payer MEDICAID ==
[~2020-06-24] VITALS: Ht 162.6 cm; Wt 70.3 kg
--- NOTE | 2020-06-24 15:12 | NUR ---
PT BIB SELF C/O SI "I WANT OD ON PILLS" PT IS AAOX4, NOT IN RESPIRATORY DISTRESS, V/S STABLE, KEPT RESTED AND COMFORTABLE. WILL CONTINUE TO MONITOR. SITTER AT BEDSIDE.
--- NOTE | 2020-06-24 15:27 | NUR ---
SEEN AND EXAMINED BY .
--- NOTE | 2020-06-24 15:31 | NUR ---
URINE SPECIMEN COLLECTED AND SENT TO LAB.
--- NOTE | 2020-06-24 15:38 | NUR ---
SECURITY AT BEDSIDE FOR WANDING.
[2020-06-24 15:47] LABS: APPEARANCE,URINE Clear (CLEAR); BILIRUBIN,URINE Negative (NEGATIVE); BLOOD, URINE Negative Ery/uL (NEGATIVE); COLOR,URINE Yellow (YELLOW); KETONES,URINE Negative (NEGATIVE); LEUKOCYTE ESTERASE ,URINE Negative (NEGATIVE); NITRITE, URINE Negative (NEGATIVE); PROTEIN,URINE Negative (NEGATIVE); UGLUCOSE Negative (NEGATIVE); UROBILINOGEN,URINE 0.2 EU/dL (0.2)
[2020-06-24 15:59] LABS: BASOPHILS # (AUTO) 0.1 /CMM (0.0-0.2); BASOPHILS % (AUTO) 1.1 % (0.0-2.0); EOSINOPHILS % (AUTO) 1.6 % (0.0-6.0); HEMATOCRIT 36 % (39-51); LYMPHOCYTES # (AUTO) 1.9 /CMM (0.8-4.8); LYMPHOCYTES % (AUTO) 30.3 % (20.0-44.0); MEAN CORPUSCULAR HGB CONC 33 g/dl (31.0-36.0); MEAN CORPUSCULAR VOLUME 87 fL (80-96); MONOCYTES # (AUTO) 0.6 /CMM (0.1-1.30); MONOCYTES % (AUTO) 9.2 % (2.0-12.0); NEUTROPHILS # (AUTO) 3.7 /CMM (1.8-8.9); NEUTROPHILS % (AUTO) 57.8 % (43.0-81.0); PLATELET COUNT (AUTO) 288 /CMM (150-450); RED BLOOD CELL COUNT(AUTO) 4.15 MIL/uL (4.5-6.0); WHITE BLOOD COUNT (AUTO) 6.4 K/uL (4.3-11.0)
[2020-06-24 16:06] LABS: CALCIUM, SERUM 8.4 mg/dL (8.5-10.1); CARBON DIOXIDE 23 mmol/L (21-32); CHLORIDE 103 mmol/L (98-107); CREATININE 1.4 mg/dL (0.6-1.3); GLUCOSE 153 mg/dL (74-106); POTASSIUM 3.6 mmol/L (3.5-5.1); SODIUM SERUM 137 mmol/L (136-145); UREA NITROGEN, BLOOD 15 mg/dL (7-18)
[2020-06-24 16:12] LABS: ALANINE AMINOTRANSFERASE 18 U/L (12-78); ALBUMIN 3.2 g/dL (3.4-5.0); ALCOHOL, BLOOD < 3 mg/dL (0-0); ALKALINE PHOSPHATASE 61 U/L (46-116); ASPARTATE AMINOTRANSFERASE 18 U/L (15-37); BILIRUBIN,DIRECT 0.1 mg/dL (0.0-0.2); BILIRUBIN,TOTAL 0.3 mg/dL (0.2-1.0)
[2020-06-24 16:16] LABS: ACETAMINOPHEN < 2 ug/ml (10-30); SALICYLATE 2.1 mg/dL (2.8-20.0)
--- NOTE | 2020-06-24 17:24 | NUR ---
FACE SHEET AND CLINICALS FAXED TO [facility].
--- NOTE | 2020-06-24 17:37 | NUR ---
CALLED [facility] [phone] WILL FOLOWUP AND CALL BACK.
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
--- NOTE | 2020-06-24 21:38 | NUR ---
PT AMBULATED TO THE RESTROOM,. VSS.
--- NOTE | 2020-06-24 22:57 | NUR ---
Patient is resting comfortably in bed with eyes closed. Easily aroused. VSS
--- NOTE | 2020-06-25 00:01 | NUR ---
PT ASLEEP, VSS.
--- NOTE | 2020-06-25 01:03 | NUR ---
PT PROVIDED WITH FOOD.
--- NOTE | 2020-06-25 02:55 | NUR ---
pt asleep, provided with more blankets.
--- NOTE | 2020-06-25 04:05 | NUR ---
Patient is resting comfortably in bed with eyes closed. Easily aroused. VSS.
--- NOTE | 2020-06-25 06:57 | NUR ---
PT PROVIDED WITH FOOD AND WATER, VSS.
--- NOTE | 2020-06-25 08:17 | NUR ---
ZACARIAS HARRINGTONW CALLED FOR EVAL AND PLACEMENT
--- NOTE | 2020-06-25 09:41 | NUR ---
Patient wanting voluntary treatment at [facility]. This SW contacted Kevin as patient is on do not admit list. Book Sewing Machine Operator at [facility] is looking into this per Kevin. SW to remain available for all needs regarding the patient.
--- NOTE | 2020-06-25 10:50 | NUR ---
HARLEY AT BEDSIDE FOR RESOURCE.
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
--- NOTE | 2020-06-25 10:57 | NUR ---
This SW notified patient that [facility] will not admit him. Patient wants to be discharged. This SW notified GRADES 7 AND 8 VISITING TEACHERBRITTNEY Russell and Dr. Bills. Patient states he will find a different hospital to go to. Patient did not want other mental health resources including: [facility] [address] [place] [address] ; [facility], [facility]. [address] [facility] [address], [place] [address] ; [facility] [address] [place] [address] ; [facility] [place] [address]
--- NOTE | 2020-06-25 11:05 | NUR ---
PATIENT DENIES SI/HI AT THIS TIME, PT STS "I JUST WANT TO GO" BELONGINGS GIVEN BACK TO PATIENT. Patient given written and verbal discharge instructions. Patient verbalizes understanding of instructions. Patient is ambulatory with steady gait. Refuses offer of snf placement. Patient given list of available shelters in surrounding area. Patient refused to sign paperworks.
[2020-06-25 11:11] VITALS: BP 127/67
== END 2020-06-25 11:12 | disposition home or self-care (01) ==
LOC: ER 15:14
DX: R45.851 Suicidal ideations (principal); D64.9 Anemia, unspecified; F12.10 Cannabis abuse, uncomplicated; R00.0 Tachycardia, unspecified; F20.9 Schizophrenia, unspecified; F31.9 Bipolar disorder, unspecified; G40.909 Epilepsy, unspecified, not intractable, without status epilepticus; Z59.0 Homelessness
CPT/HCPCS: 36415; 80048; 80076; 80164; 80305; 80307; 80329; 81001; 85025; 99285; G0480; 81000-TC

== ENCOUNTER 2020-07-13 14:53 | Emergency (ER) | payer MEDICAID ==
[~2020-07-13] VITALS: Ht 162.6 cm; Wt 65.3 kg
--- NOTE | 2020-07-13 14:53 | NUR ---
PT ADIN FROM THE STREET C/O SI " I WANT TO OD ON PILLS" PT IS AAOX4, NOT IN RESPIRATORY DISTRESS,V/S STABLE, KEPT RESTED AND COMFORTABLE. WILL CONTINUE TO MONITOR. SITTER AT BEDSIDE.
--- NOTE | 2020-07-13 14:58 | NUR ---
CALLED SECURITY FOR WANDING.
--- NOTE | 2020-07-13 15:00 | NUR ---
URINE SPECIMEN COLLECTED AND SENT TO LAB.
--- NOTE | 2020-07-13 15:20 | NUR ---
RAPID COVID SWAB DONE AND SENT TO LAB
[2020-07-13 15:28] LABS: BASOPHILS # (AUTO) 0.1 /CMM (0.0-0.2); BASOPHILS % (AUTO) 0.8 % (0.0-2.0); EOSINOPHILS % (AUTO) 0.5 % (0.0-6.0); HEMATOCRIT 39 % (39-51); HEMOGLOBIN 13.1 g/dL (13.5-17.5); LYMPHOCYTES # (AUTO) 1.8 /CMM (0.8-4.8); LYMPHOCYTES % (AUTO) 27.1 % (20.0-44.0); MEAN CORPUSCULAR HGB CONC 34 g/dl (31.0-36.0); MEAN CORPUSCULAR VOLUME 86 fL (80-96); MONOCYTES # (AUTO) 0.6 /CMM (0.1-1.30); MONOCYTES % (AUTO) 9.4 % (2.0-12.0); NEUTROPHILS # (AUTO) 4.2 /CMM (1.8-8.9); NEUTROPHILS % (AUTO) 62.2 % (43.0-81.0); PLATELET COUNT (AUTO) 313 /CMM (150-450); RED BLOOD CELL COUNT(AUTO) 4.51 MIL/uL (4.5-6.0); WHITE BLOOD COUNT (AUTO) 6.7 K/uL (4.3-11.0)
[2020-07-13 15:41] LABS: APPEARANCE,URINE CLEAR (CLEAR); BILIRUBIN,URINE NEGATIVE (NEGATIVE); BLOOD, URINE SMALL Ery/uL (NEGATIVE); COLOR,URINE YELLOW (YELLOW); KETONES,URINE TRACE (NEGATIVE); LEUKOCYTE ESTERASE ,URINE NEGATIVE (NEGATIVE); NITRITE, URINE NEGATIVE (NEGATIVE); PH,URINE 5.5 (5.0-8.0); PROTEIN,URINE NEGATIVE (NEGATIVE); UGLUCOSE NEGATIVE (NEGATIVE); UROBILINOGEN,URINE 0.2 EU/dL (0.2)
[2020-07-13 15:41] LABS: CALCIUM, SERUM 8.9 mg/dL (8.5-10.1); CARBON DIOXIDE 27 mmol/L (21-32); CHLORIDE 100 mmol/L (98-107); CREATININE 1.3 mg/dL (0.6-1.3); GLUCOSE 86 mg/dL (74-106); POTASSIUM 3.8 mmol/L (3.5-5.1); SODIUM SERUM 136 mmol/L (136-145); UREA NITROGEN, BLOOD 18 mg/dL (7-18)
[2020-07-13 15:47] LABS: ALANINE AMINOTRANSFERASE 29 U/L (12-78); ALCOHOL, BLOOD < 3 mg/dL (0-0); ALKALINE PHOSPHATASE 81 U/L (46-116); ASPARTATE AMINOTRANSFERASE 42 U/L (15-37); BILIRUBIN,DIRECT 0.2 mg/dL (0.0-0.2); BILIRUBIN,TOTAL 0.7 mg/dL (0.2-1.0); TOTAL PROTEIN, SERUM 10.7 g/dL (6.4-8.2)
[2020-07-13 15:50] LABS: SALICYLATE 2.3 mg/dL (2.8-20.0)
[2020-07-13 15:56] LABS: BACTERIA,URINE RARE /HPF (None Seen); SQUAMOUS EPITHELIAL CELL,UR 0-2 /HPF (None Seen); WBC,URINE 0-2 /HPF (0-3)
[2020-07-13 16:52] LABS: ACETAMINOPHEN 0 ug/ml (10-30)
--- NOTE | 2020-07-13 17:23 | NUR ---
DAWSON FROM [facility] CALLED PT ON DO NOT ADMIT LIST. AGGRESSIVE BEHAVIOR AND IN HERMITAGE THROWING TRAYS. BELLFLOWER SATURATED. SHE WILL CONTACT US WHEN THEY HAVE A BED.
--- NOTE | 2020-07-13 19:05 | NUR ---
ASSUMED CARE FOR THIS PT
--- NOTE | 2020-07-13 19:06 | NUR ---
PT AAOX4, RESPIRATIONS EVEN AND UNLABORED ON RA W/ NAD NOTED. PT HAS NO MEDICAL COMPLAINTS AT THIS TIME. FOOD TRAY ORDERED. CALL LIGHT WITHIN REACH. SITTER AT BEDSIDE FOR SAFETY. WILL CONTINUE TO MONITOR
--- NOTE | 2020-07-13 23:07 | NUR ---
Patient is resting comfortably in bed with eyes closed. Easily aroused. VSS
--- NOTE | 2020-07-14 04:46 | NUR ---
PT AWAKE, WATCHING TV. RESPIRATIONS EVEN AND UNLABORED ON RA W/ NAD NOTED. VSS. CALL LIGHT WITHIN REACH. SITTER AT BEDSIDE FOR SAFETY
--- NOTE | 2020-07-14 06:19 | NUR ---
PT RESTING COMFORTABLY IN BED. VSS. NO ACUTE DISTRESS NOTED. SITTER AT BEDSIDE FOR SAFETY
[2020-07-14] MEDS ORDERED: ERYTHROMYCIN BASE OPHTH 3.5 GM TUBE ONE (07:47)
--- NOTE | 2020-07-14 08:10 | NUR ---
Patient eyes close arousable non distress @ this time viotals taken and filed .
--- NOTE | 2020-07-14 10:28 | NUR ---
STERLING Gonzalezy here to see pt
--- NOTE | 2020-07-14 11:19 | NUR ---
Patient awake alert non distress he follows cammand ,no agitation lunch tray given safety tray ,sitter @ bedside
--- NOTE | 2020-07-14 12:05 | NUR ---
TRANSPORT CALLED [facility] WILL BE HERE IN 30 MIN.
--- NOTE | 2020-07-14 12:09 | NUR ---
Called report given to Colleen Monroe RN to [facility] unit [phone] .
[2020-07-14 13:12] VITALS: BP 122/81
--- NOTE | 2020-07-14 13:12 | NUR ---
BRITTNEY YOUNG GAVE REPORT TO EMT FOR PT TRANSFER TO [facility].
--- NOTE | 2020-07-14 13:13 | NUR ---
AM MALIK here for transport to [facility] .
== END 2020-07-14 13:13 ==
LOC: ER 14:53
DX: R45.851 Suicidal ideations (principal); F31.9 Bipolar disorder, unspecified; Z59.0 Homelessness; F19.10 Other psychoactive substance abuse, uncomplicated; Z20.828 Contact with and (suspected) exposure to other viral communicable diseases; F20.9 Schizophrenia, unspecified; Z86.69 Personal history of other diseases of the nervous system and sense organs
CPT/HCPCS: 36415; 80048; 80076; 80299; 80307 ×2; 80320; 81001; 85025; 87426; 99285; C9803; 81000-TC; G0480

== ENCOUNTER 2020-07-24 13:42 | Emergency (ER) | payer MEDICAID ==
[~2020-07-24] VITALS: Ht 162.6 cm; Wt 65.3 kg
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
--- NOTE | 2020-07-24 14:07 | NUR ---
URINE SAMPLE COLLECTED AND SENT TO LAB
[2020-07-24 14:36] LABS: BASOPHILS # (AUTO) 0.1 /CMM (0.0-0.2); BASOPHILS % (AUTO) 0.7 % (0.0-2.0); EOSINOPHILS % (AUTO) 0.2 % (0.0-6.0); HEMATOCRIT 36 % (39-51); LYMPHOCYTES # (AUTO) 1.7 /CMM (0.8-4.8); MEAN CORPUSCULAR HGB CONC 34 g/dl (31.0-36.0); MEAN CORPUSCULAR VOLUME 87 fL (80-96); MONOCYTES % (AUTO) 9.8 % (2.0-12.0); NEUTROPHILS # (AUTO) 7.3 /CMM (1.8-8.9); NEUTROPHILS % (AUTO) 72.3 % (43.0-81.0); PLATELET COUNT (AUTO) 282 /CMM (150-450); RED BLOOD CELL COUNT(AUTO) 4.07 MIL/uL (4.5-6.0); WHITE BLOOD COUNT (AUTO) 10.2 K/uL (4.3-11.0)
[2020-07-24 14:43] LABS: ALANINE AMINOTRANSFERASE 36 U/L (12-78); ALBUMIN 3.3 g/dL (3.4-5.0); ALKALINE PHOSPHATASE 66 U/L (46-116); ASPARTATE AMINOTRANSFERASE 40 U/L (15-37); BILIRUBIN,DIRECT 0.1 mg/dL (0.0-0.2); BILIRUBIN,TOTAL 0.3 mg/dL (0.2-1.0); CALCIUM, SERUM 8.4 mg/dL (8.5-10.1); CARBON DIOXIDE 26 mmol/L (21-32); CHLORIDE 96 mmol/L (98-107); CREATININE 1.3 mg/dL (0.6-1.3); GLUCOSE 139 mg/dL (74-106); POTASSIUM 3.7 mmol/L (3.5-5.1); SODIUM SERUM 131 mmol/L (136-145); TOTAL PROTEIN, SERUM 9.3 g/dL (6.4-8.2); UREA NITROGEN, BLOOD 18 mg/dL (7-18)
[2020-07-24 14:44] LABS: ALCOHOL, BLOOD < 3 mg/dL (0-0)
[2020-07-24 14:46] LABS: ACETAMINOPHEN 0 ug/ml (10-30)
--- NOTE | 2020-07-24 15:16 | NUR ---
Sweatband Perforator called Blow Up Operator Sara Woods, [facility] . Unable to contact, left voicemail.
[2020-07-24 15:24] LABS: APPEARANCE,URINE CLEAR (CLEAR); BILIRUBIN,URINE NEGATIVE (NEGATIVE); BLOOD, URINE SMALL Ery/uL (NEGATIVE); COLOR,URINE YELLOW (YELLOW); KETONES,URINE NEGATIVE (NEGATIVE); LEUKOCYTE ESTERASE ,URINE NEGATIVE (NEGATIVE); NITRITE, URINE NEGATIVE (NEGATIVE); PH,URINE 6.5 (5.0-8.0); PROTEIN,URINE NEGATIVE (NEGATIVE); UGLUCOSE NEGATIVE (NEGATIVE); UROBILINOGEN,URINE 0.2 EU/dL (0.2)
[2020-07-24 15:37] LABS: BACTERIA,URINE Rare /HPF (None Seen); SQUAMOUS EPITHELIAL CELL,UR Few /HPF (None Seen); WBC,URINE 0-2 /HPF (0-3)
--- NOTE | 2020-07-24 16:05 | NUR ---
PT RESTING QUIETLY, NAD NOTED. REPORTS CONTINUED SI BUT CONTRACTS FOR SAFETY. SITTER AT BEDSIDE.
--- NOTE | 2020-07-24 16:16 | NUR ---
Dietary Server Sara Woods, [facility] unavailable until after 5pm. Per Christina HARRINGTONW, DSW, BCD, [facility] ED to call Dietary Server device sales consultant at 5pm.
--- NOTE | 2020-07-24 16:17 | NUR ---
This SW informed FX ARTIST Rosy to call crisis clinican immigration lawyer Letha Galeano RN at 5pm to assess this patient. FX ARTIST Rosy in understanding.
--- NOTE | 2020-07-24 16:46 | NUR ---
3:15pm This SW met with the patient in the ED. Patient is known to this SW from prior visits to [facility] ED. Patient is a 39-year-old Male. Patient was alert and orientedx4. Patient was watching television and sitting up straight when this SW approached. Patient then removed television from his view to speak and make direct eye contact with this SW. Patient was able to confirm demographics on face sheet including date of and social security number. Patient is homeless. Patient reports hx of crystal meth. Patient reports current marijuana use. Patient reported to this SW that he currently receives $221 a month in general [employer] funds and $100 a month in food stamps. Patient reports that he has been diagnosed with bipolar and schizophrenia disorders. Patients reports a current suicidal plan of wanting to overdose on pills. Patient reports that going to mental health hospitals has been helpful because he does not have an outpatient psychiatrist. Patient declined resources including year-long housing, hygiene, and mental health stating "I got those from here last time, I haven't used them yet." Patient stated, I need to go back into a psychiatric facility so they can help me. SW acknowledged patients needs. SW to follow up with [facility] regarding voluntary treatment. Per Kevin patient may not be admitted to their facility due to his unruly behavior during a prior admission. Patient remains suicidal with a plan to overdose on pills. SW to call Ciaio Counter Molder KIMBERLYN Sexton to come assess this patient. This SW to remain available for all needs regarding the patient.
--- NOTE | 2020-07-24 18:15 | NUR ---
PINKY VEST BUSHELER AT BEDSIDE
--- NOTE | 2020-07-24 19:39 | NUR ---
PT RESTING QUIETLY, NAD NOTED. REFUSES DINNER TRAY. UPDATED PT ON PLAN OF CARE
--- NOTE | 2020-07-24 20:10 | NUR ---
PT AMBULATED OUTSIDE FOR A CIGARETTE. PT REFUSES VS AT THIS TIME.
--- NOTE | 2020-07-25 01:22 | NUR ---
PT RESTING COMFORTABLY IN BED. NO ACUTE DISTRESS NOTED. VSS. SITTER AT BEDSIDE FOR SAFETY
--- NOTE | 2020-07-25 01:57 | NUR ---
SPOKE WITH LAYTON FROM [facility], NO BEDS AVAILABLE AT THIS TIME
--- NOTE | 2020-07-25 08:01 | NUR ---
PATIENT IN BED ASLEEP, EASILY AROUSABLE BY VOICE. HOOKED TO MONITOR. SITTER AT BEDSIDE FOR SAFETY. WILL CONTINUE TO MONITOR ACCORDINGLY
--- NOTE | 2020-07-25 09:36 | NUR ---
FOOD TRAY PROVIDED, TOLERATING PO WELL.
--- NOTE | 2020-07-25 11:22 | NUR ---
patient in bed, awake, calm and cooperative. hooked to monitor, will continue to monitor accordinglky. sitter at bedside for safety
--- NOTE | 2020-07-25 13:16 | NUR ---
SW attempted to speak with a field support representative at [facility] , no field support representative available. SW prompted to leave a voicemail.
--- NOTE | 2020-07-25 13:24 | NUR ---
foos tray provided. tolerated PO well
--- NOTE | 2020-07-25 13:53 | NUR ---
BRITTON met with GG at [facility] intake ext [phone] to assist in re-sending patient's clinicals to [facility] Intake. Per GG, GG to re-fax clinicals in hopes to place the patient for voluntary psychiatric treatment.
--- NOTE | 2020-07-25 15:26 | NUR ---
patient in bed, awake, calm and cooperative. hooked to monitor, will continue to monitor accordinglky. sitter at bedside for safety
--- NOTE | 2020-07-25 16:27 | NUR ---
[employer] Teacher consulted with Christina Terry, STERLING, ELAINA, KAYLIN regarding this patient. Per Christina, Christina is also working on finding a placement for this patient. Christina also aware that the patient has been seen by Therapy Technician Letha. Patient bed currently pending.
--- NOTE | 2020-07-25 17:03 | NUR ---
mi zurita at bedside
--- NOTE | 2020-07-25 17:36 | NUR ---
Patient given written and verbal discharge instructions. Patient verbalizes understanding of instructions. Patient is ambulatory with steady gait. Refuses offer of care home placement. Patient given list of available shelters in surrounding area. In proper clothing upon discharge. Name band removed. All belongings brought with him.
[2020-07-25 18:59] VITALS: BP 122/69
== END 2020-07-25 17:36 | disposition home or self-care (01) ==
LOC: ER 13:46
DX: R45.851 Suicidal ideations (principal); F31.9 Bipolar disorder, unspecified; Z59.0 Homelessness; F20.9 Schizophrenia, unspecified; Z86.69 Personal history of other diseases of the nervous system and sense organs; Z20.828 Contact with and (suspected) exposure to other viral communicable diseases; F15.10 Other stimulant abuse, uncomplicated; F12.10 Cannabis abuse, uncomplicated
CPT/HCPCS: 36415; 80048; 80076; 80299; 80307; 80320; 81001; 85025; 87426; 99285; C9803; 81000-TC; G0480

== ENCOUNTER 2020-10-08 18:25 | Emergency (ER) | payer MEDICAID ==
[~2020-10-08] VITALS: Ht 170.2 cm; Wt 72.6 kg
[2020-10-08 18:34] VITALS: BP 151/83
--- NOTE | 2020-10-08 18:37 | NUR ---
Security Hernandez Called for wanding to check for contraband
[2020-10-08 19:06] LABS: BASOPHILS # (AUTO) 0.1 /CMM (0.0-0.2); BASOPHILS % (AUTO) 1.1 % (0.0-2.0); EOSINOPHILS % (AUTO) 1.1 % (0.0-6.0); HEMATOCRIT 37 % (39-51); HEMOGLOBIN 12.6 g/dL (13.5-17.5); LYMPHOCYTES # (AUTO) 1.7 /CMM (0.8-4.8); LYMPHOCYTES % (AUTO) 29.1 % (20.0-44.0); MEAN CORPUSCULAR HGB CONC 34 g/dl (31.0-36.0); MEAN CORPUSCULAR VOLUME 85 fL (80-96); MONOCYTES # (AUTO) 0.7 /CMM (0.1-1.30); MONOCYTES % (AUTO) 12.4 % (2.0-12.0); NEUTROPHILS # (AUTO) 3.3 /CMM (1.8-8.9); NEUTROPHILS % (AUTO) 56.3 % (43.0-81.0); PLATELET COUNT (AUTO) 340 /CMM (150-450); RED BLOOD CELL COUNT(AUTO) 4.37 MIL/uL (4.5-6.0); WHITE BLOOD COUNT (AUTO) 5.9 K/uL (4.3-11.0)
[2020-10-08 19:23] LABS: CALCIUM, SERUM 8.7 mg/dL (8.5-10.1); CARBON DIOXIDE 31 mmol/L (21-32); CHLORIDE 102 mmol/L (98-107); CREATININE 1.3 mg/dL (0.6-1.3); GLUCOSE 88 mg/dL (74-106); POTASSIUM 3.8 mmol/L (3.5-5.1); SODIUM SERUM 139 mmol/L (136-145); UREA NITROGEN, BLOOD 14 mg/dL (7-18)
[2020-10-08 19:27] LABS: ALANINE AMINOTRANSFERASE 26 U/L (12-78); ALBUMIN 3.3 g/dL (3.4-5.0); ALCOHOL, BLOOD 9 mg/dL (0-0); ALKALINE PHOSPHATASE 82 U/L (46-116); ASPARTATE AMINOTRANSFERASE 28 U/L (15-37); BILIRUBIN,DIRECT 0.1 mg/dL (0.0-0.2); BILIRUBIN,TOTAL 0.3 mg/dL (0.2-1.0); TOTAL PROTEIN, SERUM 9.8 g/dL (6.4-8.2)
[2020-10-08 19:28] LABS: ACETAMINOPHEN < 2 ug/ml (10-30)
[2020-10-08 19:59] LABS: BILIRUBIN,URINE Negative (NEGATIVE); COLOR,URINE YELLOW (YELLOW); LEUKOCYTE ESTERASE ,URINE Negative (NEGATIVE); NITRITE, URINE Negative (NEGATIVE); PH,URINE 6.5 (5.0-8.0); PROTEIN,URINE Trace mg/dl (NEGATIVE); UGLUCOSE Negative (NEGATIVE); UROBILINOGEN,URINE 0.2 EU/dL (0.2)
--- NOTE | 2020-10-08 20:02 | NUR ---
URINE SENT TO LAB
--- NOTE | 2020-10-08 20:04 | NUR ---
BIBS, WALKED IN TO ER. AAOX4. NOT IN RESP DISTRESS. AMBULATORY. CAME IN FOR SUICIDAL IDEATION W/O ANY SPEICIFIC PLANS. PT STATES THAT HE HAS BEEN FEELING DOWN RECENTLY. DENIES AND HI. DENIES VISUAL NOR AUDITTORY HALLUCINATIONS. PT WAS WANDED BY SECURITY. URINE COLLECTED. WAS AT TH BEDSIDE FOR EVAL.
[2020-10-08 20:13] LABS: BACTERIA,URINE Rare /HPF (None Seen); SQUAMOUS EPITHELIAL CELL,UR Few /HPF (None Seen); WBC,URINE NONE SEEN /HPF (0-3)
--- NOTE | 2020-10-08 20:34 | NUR ---
CALLED FOR PATIENT. PATIENT NOT PRESENT IN THE ROOM. PATIENT IS NOT FOUND IN RESTROOM, WAITING ROOM, NOR OUTSIDE. PATIENT LEFT.
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
== END 2020-10-08 23:14 | disposition home or self-care (01) ==
LOC: ER 18:27
DX: R45.851 Suicidal ideations (principal); F20.9 Schizophrenia, unspecified; F31.9 Bipolar disorder, unspecified; Z60.2 Problems related to living alone
CPT/HCPCS: 36415; 80048-TC; 80076-TC; 81001; 85025-TC; G0480

== ENCOUNTER 2020-10-25 15:30 | Emergency (ER) | payer MEDICAID ==
[~2020-10-25] VITALS: Ht 170.2 cm; Wt 72.6 kg
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
--- NOTE | 2020-10-25 16:41 | NUR ---
IV LINE ESTABLISHED ON L AC 20G, BLOOD DRAWN AND GIVEN TO SPRAY GUNNER AT BEDSIDE.
[2020-10-25 16:47] LABS: BASOPHILS % (AUTO) 0.3 % (0.0-2.0); EOSINOPHILS % (AUTO) 0.1 % (0.0-6.0); HEMATOCRIT 38 % (39-51); HEMOGLOBIN 12.7 g/dL (13.5-17.5); LYMPHOCYTES # (AUTO) 0.9 /CMM (0.8-4.8); LYMPHOCYTES % (AUTO) 7.5 % (20.0-44.0); MEAN CORPUSCULAR HGB CONC 33 g/dl (31.0-36.0); MEAN CORPUSCULAR VOLUME 86 fL (80-96); MONOCYTES # (AUTO) 0.8 /CMM (0.1-1.30); MONOCYTES % (AUTO) 6.2 % (2.0-12.0); NEUTROPHILS # (AUTO) 10.7 /CMM (1.8-8.9); NEUTROPHILS % (AUTO) 85.9 % (43.0-81.0); PLATELET COUNT (AUTO) 368 /CMM (150-450); RED BLOOD CELL COUNT(AUTO) 4.46 MIL/uL (4.5-6.0); WHITE BLOOD COUNT (AUTO) 12.5 K/uL (4.3-11.0)
[2020-10-25 17:02] LABS: ALBUMIN 3.4 g/dL (3.4-5.0); BILIRUBIN,DIRECT 0.1 mg/dL (0.0-0.2); BILIRUBIN,TOTAL 0.3 mg/dL (0.2-1.0); CREATININE 1.5 mg/dL (0.6-1.3); POTASSIUM 3.3 mmol/L (3.5-5.1); TOTAL PROTEIN, SERUM 9.8 g/dL (6.4-8.2)
[2020-10-25] MEDS ORDERED: IBUP-1958 PO (18:51)
[2020-10-25] MEDS ORDERED: KETOROLAC TROMETHAMINE 15 MG/ML VIAL ONE (18:56)
[2020-10-25 19:06] VITALS: BP 151/85
--- NOTE | 2020-10-25 19:07 | NUR ---
Patient discharged to home in stable condition. Written and verbal after care instructions given. Patient verbalizes understanding of instruction.IV removed. Catheter intact and site benign. Pressure and 4x4 applied to site. No bleeding noted. Pt ambulatory with a steady gait but with a limp. pt refused tyo sign homeless waiver and refused resources
[2020-10-25] MEDS ORDERED: KETOROLAC TROMETHAMINE INJ 30 MG/ML VIAL IV ONE (19:30)
== END 2020-10-25 19:22 | disposition home or self-care (01) ==
LOC: ER 15:32
DX: S30.0XXA Contusion of lower back and pelvis, initial encounter (principal); S00.03XA Contusion of scalp, initial encounter; S00.81XA Abrasion of other part of head, initial encounter; F20.9 Schizophrenia, unspecified; F32.9 Major depressive disorder, single episode, unspecified; F15.10 Other stimulant abuse, uncomplicated; Z60.2 Problems related to living alone; Y00.XXXA Assault by blunt object, initial encounter; Y93.89 Activity, other specified; Y92.89 Other specified places as the place of occurrence of the external cause; Y99.8 Other external cause status
CPT/HCPCS: 36415; 70450; 71250; 72125; 74176; 80048; 80076; 80320; 85025; 85730; 99285; J1885; G0480

== ENCOUNTER 2020-11-21 18:52 | Emergency (ER) | payer MEDICAID ==
[~2020-11-21] VITALS: Ht 170.2 cm; Wt 74.8 kg
[~2020-11-21 18:52] MED LIST: IBUP-1958 PO
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
[2020-11-21] MEDS ORDERED: MAGNESIUM HYDROXIDE 30 ML UDC ONE (19:23)
[2020-11-21] MEDS: MAGNESIUM HYDROXIDE 30 ML UDC PO ONE (19:25)
[2020-11-21] MEDS ORDERED: NA PHOS,M-B/NA PHOS,DI-BA 1 EA ENEMA RC ONE (19:26)
[2020-11-21] MEDS: NA PHOS,M-B/NA PHOS,DI-BA 1 EA ENEMA RC ONE (19:36)
--- NOTE | 2020-11-21 19:41 | NUR ---
PT MEDICATED, AMBULATED TO THE RESTROOM.
--- NOTE | 2020-11-21 19:59 | NUR ---
PT STATED HE HAD A BIG BOWEL MOVEMENT.
[2020-11-21] MEDS ORDERED: BISA-79 PO (20:07)
[2020-11-21 22:41] VITALS: BP 121/73
--- NOTE | 2020-11-21 22:41 | NUR ---
Patient discharged to home in stable condition. Written and verbal after care instructions given. Patient verbalizes understanding of instruction and RX.
== END 2020-11-21 22:42 | disposition home or self-care (01) ==
LOC: ER 18:55
DX: K59.00 Constipation, unspecified (principal); G40.909 Epilepsy, unspecified, not intractable, without status epilepticus; F20.9 Schizophrenia, unspecified; F31.9 Bipolar disorder, unspecified; F17.200 Nicotine dependence, unspecified, uncomplicated; Z60.2 Problems related to living alone; Z79.899 Other long term (current) drug therapy

== ENCOUNTER 2021-02-11 20:09 | Emergency (ER) | payer MEDICAID ==
[~2021-02-11] VITALS: Ht 170.2 cm; Wt 65.8 kg
[~2021-02-11 20:09] MED LIST changes: +BISA-79 PO
[2021-02-11 20:36] LABS: BILIRUBIN,URINE NEGATIVE (NEGATIVE); COLOR,URINE YELLOW (YELLOW); LEUKOCYTE ESTERASE ,URINE TRACE (NEGATIVE); NITRITE, URINE NEGATIVE (NEGATIVE); PH,URINE 5.5 (5.0-8.0); PROTEIN,URINE NEGATIVE (NEGATIVE); UGLUCOSE NEGATIVE (NEGATIVE); UROBILINOGEN,URINE 0.2 EU/dL (0.2)
[2021-02-11 20:47] LABS: BACTERIA,URINE Few /HPF (None Seen); SQUAMOUS EPITHELIAL CELL,UR Moderate /HPF (None Seen)
[2021-02-11 20:55] LABS: BASOPHILS # (AUTO) 0.1 /CMM (0.0-0.2); BASOPHILS % (AUTO) 0.6 % (0.0-2.0); EOSINOPHILS % (AUTO) 0.2 % (0.0-6.0); HEMATOCRIT 37 % (39-51); HEMOGLOBIN 12.2 g/dL (13.5-17.5); LYMPHOCYTES # (AUTO) 1.9 /CMM (0.8-4.8); LYMPHOCYTES % (AUTO) 19.2 % (20.0-44.0); MEAN CORPUSCULAR HGB CONC 33 g/dl (31.0-36.0); MEAN CORPUSCULAR VOLUME 85 fL (80-96); MONOCYTES # (AUTO) 1.2 /CMM (0.1-1.30); NEUTROPHILS # (AUTO) 6.6 /CMM (1.8-8.9); PLATELET COUNT (AUTO) 354 /CMM (150-450); RED BLOOD CELL COUNT(AUTO) 4.33 MIL/uL (4.5-6.0); WHITE BLOOD COUNT (AUTO) 9.7 K/uL (4.3-11.0)
[2021-02-11 21:10] LABS: CARBON DIOXIDE 29 mmol/L (21-32); CHLORIDE 102 mmol/L (98-107); CREATININE 1.6 mg/dL (0.6-1.3); GLUCOSE 83 mg/dL (74-106); SODIUM SERUM 138 mmol/L (136-145); UREA NITROGEN, BLOOD 35 mg/dL (7-18)
[2021-02-11 21:15] LABS: ALANINE AMINOTRANSFERASE 23 U/L (12-78); ALBUMIN 3.8 g/dL (3.4-5.0); ALCOHOL, BLOOD < 3 mg/dL (0-0); ALKALINE PHOSPHATASE 72 U/L (46-116); ASPARTATE AMINOTRANSFERASE 34 U/L (15-37); BILIRUBIN,DIRECT 0.1 mg/dL (0.0-0.2); BILIRUBIN,TOTAL 0.6 mg/dL (0.2-1.0); TOTAL PROTEIN, SERUM 10.3 g/dL (6.4-8.2)
[2021-02-11 21:16] LABS: ACETAMINOPHEN < 0 ug/ml (10-30)
--- NOTE | 2021-02-11 21:30 | NUR ---
ADIN 60 FROM BUS STOP FOR +SI PLANS TO OD; - HI. PT AOX4 RR EVEN AND UNLABORED. NO NVD AT THIS TIME. NO ACUTE DISTRESS NOTED. PERSONAL BELONGINGS KEPT BY SECURITY. PT AWARE OF PLAN OF CARE. URINE COLLECTED AND SENT TO LAB
--- NOTE | 2021-02-11 23:03 | NUR ---
FACESHEET AND CLINICALS FAXED TO [facility].
--- NOTE | 2021-02-11 23:15 | NUR ---
PER [facility], PT IN DO NOT ADMIT LIST
--- NOTE | 2021-02-12 05:36 | NUR ---
Pt denies SI or HI. Patient discharged to home in stable condition. Written and verbal after care instructions given. Patient verbalizes understanding of instruction.
[2021-02-12 05:38] VITALS: BP 130/80
== END 2021-02-12 05:39 | disposition home or self-care (01) ==
LOC: ER 20:09
DX: R45.851 Suicidal ideations (principal); F31.9 Bipolar disorder, unspecified; F20.9 Schizophrenia, unspecified; Z20.822 Contact with and (suspected) exposure to COVID-19; F15.10 Other stimulant abuse, uncomplicated; F12.10 Cannabis abuse, uncomplicated; G40.909 Epilepsy, unspecified, not intractable, without status epilepticus
CPT/HCPCS: 36415; 80048; 80076; 80299; 80307; 80320; 81001; 85025; 87086; 87426; 99285; C9803; G0480

== ENCOUNTER 2021-02-21 18:10 | Emergency (ER) | payer MEDICAID ==
[~2021-02-21] VITALS: Ht 170.2 cm; Wt 65.8 kg
[2021-02-21 18:10] VITALS: BP 136/72
[2021-02-21] MEDS ORDERED: IBUP-1957 PO (18:14)
[2021-02-21] MEDS: diphenhydrAMINE HCL 50 MG/ML VIAL IM ONE (18:19)
== END 2021-02-21 19:24 | disposition home or self-care (01) ==
LOC: ER 18:14
DX: R68.84 Jaw pain (principal); F19.10 Other psychoactive substance abuse, uncomplicated; F20.9 Schizophrenia, unspecified; F32.9 Major depressive disorder, single episode, unspecified; Z60.2 Problems related to living alone; Z79.899 Other long term (current) drug therapy

== ENCOUNTER 2021-02-22 01:42 | Emergency (ER) | payer MEDICAID ==
[~2021-02-22] VITALS: Ht 170.2 cm; Wt 65.8 kg
[2021-02-22 01:42] VITALS: BP 138/90
[~2021-02-22 01:42] MED LIST changes: +IBUP-1957 PO
--- NOTE | 2021-02-22 02:35 | NUR ---
DR. CANCINO AT BEDSIDE FOR MEDICAL SCREENING EXAM
== END 2021-02-22 02:42 | disposition home or self-care (01) ==
LOC: ER 01:42
DX: F12.10 Cannabis abuse, uncomplicated (principal); Z71.1 Person with feared health complaint in whom no diagnosis is made; F20.9 Schizophrenia, unspecified; F32.9 Major depressive disorder, single episode, unspecified; F17.200 Nicotine dependence, unspecified, uncomplicated; Z60.2 Problems related to living alone

== ENCOUNTER 2021-02-22 20:15 | Emergency (ER) | payer MEDICAID ==
[~2021-02-22] VITALS: Ht 170.2 cm; Wt 65.8 kg
[2021-02-22 20:15] VITALS: BP 129/65
== END 2021-02-22 20:20 | disposition left against medical advice (07) ==
LOC: ER 20:16
DX: Z53.21 Procedure and treatment not carried out due to patient leaving prior to being seen by health care provider (principal); F41.9 Anxiety disorder, unspecified; F32.9 Major depressive disorder, single episode, unspecified; F20.9 Schizophrenia, unspecified

== ENCOUNTER 2021-02-24 15:12 | Emergency (ER) | payer MEDICAID ==
[~2021-02-24] VITALS: Ht 170.2 cm; Wt 65.8 kg
[2021-02-24] MEDS ORDERED: diphenhydrAMINE HCL 25 MG CAPSULE ONE (15:30)
[2021-02-24] MEDS ORDERED: diphenhydrAMINE HCL 25 MG CAPSULE PO ONE (15:30)
[2021-02-24 15:32] VITALS: BP 130/71
--- NOTE | 2021-02-24 15:33 | NUR ---
Patient mane, from [place], c/o jaw pain. on room air, breathing evenly and unalbored. Kept comfortable, will continue to monitor accordingly.
[2021-02-24 15:47] LABS: BASOPHILS # (AUTO) 0.1 /CMM (0.0-0.2); BASOPHILS % (AUTO) 0.9 % (0.0-2.0); HEMATOCRIT 45 % (39-51); HEMOGLOBIN 14.4 g/dL (13.5-17.5); LYMPHOCYTES # (AUTO) 2.2 /CMM (0.8-4.8); LYMPHOCYTES % (AUTO) 27.7 % (20.0-44.0); MEAN CORPUSCULAR HGB CONC 32 g/dl (31.0-36.0); MEAN CORPUSCULAR VOLUME 88 fL (80-96); MONOCYTES # (AUTO) 0.6 /CMM (0.1-1.30); MONOCYTES % (AUTO) 8.2 % (2.0-12.0); NEUTROPHILS % (AUTO) 62.2 % (43.0-81.0); PLATELET COUNT (AUTO) 337 /CMM (150-450); RED BLOOD CELL COUNT(AUTO) 5.09 MIL/uL (4.5-6.0)
[2021-02-24 16:02] LABS: BILIRUBIN,URINE NEGATIVE (NEGATIVE); COLOR,URINE YELLOW (YELLOW); LEUKOCYTE ESTERASE ,URINE NEGATIVE (NEGATIVE); NITRITE, URINE NEGATIVE (NEGATIVE); PROTEIN,URINE NEGATIVE (NEGATIVE); UGLUCOSE NEGATIVE (NEGATIVE); UROBILINOGEN,URINE 0.2 EU/dL (0.2)
[2021-02-24 16:08] LABS: BACTERIA,URINE RARE /HPF (None Seen); MUCUS,URINE Few /LPF (None Seen); WBC,URINE 0-2 /HPF (0-3)
[2021-02-24 16:54] LABS: ALANINE AMINOTRANSFERASE 32 U/L (12-78); ALBUMIN 3.5 g/dL (3.4-5.0); ALCOHOL, BLOOD < 3 mg/dL (0-0); ALKALINE PHOSPHATASE 78 U/L (46-116); ASPARTATE AMINOTRANSFERASE 29 U/L (15-37); BILIRUBIN,DIRECT 0.1 mg/dL (0.0-0.2); BILIRUBIN,TOTAL 0.3 mg/dL (0.2-1.0); CALCIUM, SERUM 9.4 mg/dL (8.5-10.1); CARBON DIOXIDE 23 mmol/L (21-32); CHLORIDE 99 mmol/L (98-107); CREATININE 1.3 mg/dL (0.6-1.3); GLUCOSE 138 mg/dL (74-106); POTASSIUM 3.8 mmol/L (3.5-5.1); SODIUM SERUM 135 mmol/L (136-145); TOTAL PROTEIN, SERUM 10.4 g/dL (6.4-8.2); UREA NITROGEN, BLOOD 16 mg/dL (7-18)
[2021-02-24 16:55] LABS: ACETAMINOPHEN 0 ug/ml (10-30)
[2021-02-24] MEDS ORDERED: IV NS 0.9% 1,000 ML BAG IV ONE (17:30)
--- NOTE | 2021-02-24 18:24 | NUR ---
COVID SWAB SENT.
--- NOTE | 2021-02-24 19:10 | NUR ---
negative covid per lab
--- NOTE | 2021-02-24 19:53 | NUR ---
FACESHEET AND CLINICALS FAXED TO [facility].
--- NOTE | 2021-02-24 23:45 | NUR ---
Patient eloped from facility. ER MD notified.
== END 2021-02-24 23:45 | disposition left against medical advice (07) ==
LOC: ER 15:22
DX: R45.851 Suicidal ideations (principal); R68.84 Jaw pain; E87.1 Hypo-osmolality and hyponatremia; Z20.822 Contact with and (suspected) exposure to COVID-19; F20.9 Schizophrenia, unspecified; F31.9 Bipolar disorder, unspecified; F15.10 Other stimulant abuse, uncomplicated; F12.10 Cannabis abuse, uncomplicated; G40.909 Epilepsy, unspecified, not intractable, without status epilepticus
CPT/HCPCS: 36415; 80048; 80076; 80299; 80307; 80320; 81001; 85025; 87426; 96360; 99283; C9803; J7030; Q0163; G0480

== ENCOUNTER 2021-02-25 00:24 | Emergency (ER) | payer MEDICAID ==
[~2021-02-25] VITALS: Ht 170.2 cm; Wt 65.8 kg
[2021-02-25 00:27] VITALS: BP 129/68
== END 2021-02-25 01:58 | disposition home or self-care (01) ==
LOC: ER 00:25
DX: Z02.89 Encounter for other administrative examinations (principal); Z76.5 Malingerer [conscious simulation]; F20.9 Schizophrenia, unspecified; F31.9 Bipolar disorder, unspecified; F17.200 Nicotine dependence, unspecified, uncomplicated; Z60.2 Problems related to living alone; Z79.899 Other long term (current) drug therapy

== ENCOUNTER 2021-06-24 05:53 | Emergency (ER) | payer MEDICAID ==
--- NOTE | 2021-06-24 06:27 | NUR ---
CALLED FOR TRIAGE, NOT IN WAITING ROOM
--- NOTE | 2021-06-24 06:42 | NUR ---
CALLED FOR TRIAGE, NOT IN WAITING ROOM.
--- NOTE | 2021-06-24 07:04 | NUR ---
CALLED FOR TRIAGE, NOT IN WAITING ROOM. PT LEFT WITHOUT BEING TRIAGED.
== END 2021-06-24 07:05 | disposition left against medical advice (07) ==
LOC: ER 05:53
DX: Z53.21 Procedure and treatment not carried out due to patient leaving prior to being seen by health care provider (principal)

== ENCOUNTER 2021-06-28 02:03 | Emergency (ER) | payer MEDICAID ==
[~2021-06-28] VITALS: Ht 162.6 cm; Wt 68.0 kg
[2021-06-28 02:41] LABS: BASOPHILS # (AUTO) 0.1 K/uL (0.0-0.2); BASOPHILS % (AUTO) 2.2 % (0.0-2.0); EOSINOPHILS % (AUTO) 0.8 % (0.0-6.0); HEMATOCRIT 37 % (39-51); HEMOGLOBIN 12.5 g/dL (13.5-17.5); LYMPHOCYTES # (AUTO) 1.8 K/uL (0.8-4.8); LYMPHOCYTES % (AUTO) 34.8 % (20.0-44.0); MEAN CORPUSCULAR HGB CONC 34 g/dl (31.0-36.0); MEAN CORPUSCULAR VOLUME 86 fL (80-96); MONOCYTES # (AUTO) 0.7 K/uL (0.1-1.30); MONOCYTES % (AUTO) 13.6 % (2.0-12.0); NEUTROPHILS # (AUTO) 2.5 K/uL (1.8-8.9); NEUTROPHILS % (AUTO) 48.6 % (43.0-81.0); PLATELET COUNT (AUTO) 339 K/uL (150-450); RED BLOOD CELL COUNT(AUTO) 4.29 MIL/uL (4.5-6.0); WHITE BLOOD COUNT (AUTO) 5.2 K/uL (4.3-11.0)
[2021-06-28 02:47] LABS: CALCIUM, SERUM 8.5 mg/dL (8.5-10.1); CARBON DIOXIDE 31 mmol/L (21-32); CHLORIDE 101 mmol/L (98-107); CREATININE 1.3 mg/dL (0.6-1.3); GLUCOSE 97 mg/dL (74-106); POTASSIUM 3.8 mmol/L (3.5-5.1); SODIUM SERUM 136 mmol/L (136-145); UREA NITROGEN, BLOOD 17 mg/dL (7-18)
[2021-06-28 02:53] LABS: ALANINE AMINOTRANSFERASE 21 U/L (12-78); ALBUMIN 3.6 g/dL (3.4-5.0); ALKALINE PHOSPHATASE 77 U/L (46-116); ASPARTATE AMINOTRANSFERASE 22 U/L (15-37); BILIRUBIN,DIRECT 0.2 mg/dL (0.0-0.2); BILIRUBIN,TOTAL 0.8 mg/dL (0.2-1.0); TOTAL PROTEIN, SERUM 9.5 g/dL (6.4-8.2)
[2021-06-28 02:54] LABS: ACETAMINOPHEN < 2 ug/ml (10-30); ALCOHOL, BLOOD < 3 mg/dL (0-0)
--- NOTE | 2021-06-28 03:10 | NUR ---
CALLED [facility]. TRANSFERRED FOR PT INTAKE, NO ANSWER.
--- NOTE | 2021-06-28 03:20 | NUR ---
CRISIS TEAM PAGED FOR EVAL
--- NOTE | 2021-06-28 03:37 | NUR ---
PER ART [facility], PT IS BLACK LISTED
--- NOTE | 2021-06-28 03:45 | NUR ---
PAGED JESSE, NO ANSWER AT THIS TIME
--- NOTE | 2021-06-28 04:19 | NUR ---
JESSE CRISIS TEAM ETA ONE HOUR
--- NOTE | 2021-06-28 04:25 | NUR ---
PATIENT LEFT FACILITY. NOTIFIED [facility], DISPATCH #[id number]. CRISIS TEAM NOTED OF PATIENT LEAVING
[2021-06-28 05:47] VITALS: BP 124/61
== END 2021-06-28 04:40 | disposition left against medical advice (07) ==
LOC: ER 02:07
DX: R45.851 Suicidal ideations (principal); F20.9 Schizophrenia, unspecified; F32.9 Major depressive disorder, single episode, unspecified; F12.10 Cannabis abuse, uncomplicated; Z60.2 Problems related to living alone; Z79.899 Other long term (current) drug therapy
CPT/HCPCS: 36415; 80048-TC; 80076-TC; 85025-TC; G0480

== ENCOUNTER 2021-06-29 21:20 | Emergency (ER) | payer MEDICAID ==
--- NOTE | 2021-06-29 21:26 | NUR ---
PATIENT CALLED TO TRIAGE NO RESPONSE
--- NOTE | 2021-06-29 21:45 | NUR ---
PATIENT CALLED TO TRIAGE X 3, NO RESPONSE
--- NOTE | 2021-06-29 22:19 | NUR ---
called , no answer
== END 2021-06-29 22:20 | disposition left against medical advice (07) ==
LOC: ER 21:22
DX: Z53.21 Procedure and treatment not carried out due to patient leaving prior to being seen by health care provider (principal)

== ENCOUNTER 2021-11-02 23:55 | Emergency (ER) | payer MEDICAID ==
[~2021-11-02] VITALS: Ht 162.6 cm; Wt 63.5 kg
--- NOTE | 2021-11-03 00:24 | NUR ---
PT BIBS. C/O SUICIDAL IDEATION - PLANS TO OD ON DRUGS. VOLUNTARY ADMIT TO [facility]. PT A/OX3. TOLERATING R/A WELL WITH NO SOB. SAFETY 1:[address]
--- NOTE | 2021-11-03 00:36 | NUR ---
URINE AND COVID ANTIGEN SWAB COLLECTED AND SENT TO LAB
--- NOTE | 2021-11-03 00:39 | NUR ---
STEAMBOAT INSPECTOR AT PT'S BEDSIDE
[2021-11-03 01:10] LABS: BILIRUBIN,URINE NEGATIVE (NEGATIVE); COLOR,URINE YELLOW (YELLOW); LEUKOCYTE ESTERASE ,URINE NEGATIVE (NEGATIVE); NITRITE, URINE NEGATIVE (NEGATIVE); PH,URINE 5.5 (5.0-8.0); PROTEIN,URINE NEGATIVE (NEGATIVE); UGLUCOSE NEGATIVE (NEGATIVE); UROBILINOGEN,URINE 0.2 EU/dL (0.2)
[2021-11-03 01:11] LABS: BASOPHILS % (AUTO) 0.3 % (0.0-2.0); EOSINOPHILS % (AUTO) 0.2 % (0.0-6.0); HEMATOCRIT 37 % (39-51); HEMOGLOBIN 12.5 g/dL (13.5-17.5); LYMPHOCYTES # (AUTO) 0.6 K/uL (0.8-4.8); LYMPHOCYTES % (AUTO) 5.3 % (20.0-44.0); MEAN CORPUSCULAR HGB CONC 34 g/dl (31.0-36.0); MEAN CORPUSCULAR VOLUME 87 fL (80-96); MONOCYTES # (AUTO) 1.3 K/uL (0.1-1.30); MONOCYTES % (AUTO) 12.7 % (2.0-12.0); NEUTROPHILS # (AUTO) 8.5 K/uL (1.8-8.9); NEUTROPHILS % (AUTO) 81.5 % (43.0-81.0); PLATELET COUNT (AUTO) 285 K/uL (150-450); RED BLOOD CELL COUNT(AUTO) 4.25 MIL/uL (4.5-6.0); WHITE BLOOD COUNT (AUTO) 10.4 K/uL (4.3-11.0)
[2021-11-03 01:21] LABS: CALCIUM, SERUM 8.4 mg/dL (8.5-10.1); CARBON DIOXIDE 27 mmol/L (21-32); CHLORIDE 97 mmol/L (98-107); CREATININE 1.8 mg/dL (0.6-1.3); GLUCOSE 112 mg/dL (74-106); POTASSIUM 3.7 mmol/L (3.5-5.1); SODIUM SERUM 131 mmol/L (136-145); UREA NITROGEN, BLOOD 18 mg/dL (7-18)
[2021-11-03 01:27] LABS: ACETAMINOPHEN 0 ug/ml (10-30); ALANINE AMINOTRANSFERASE 49 U/L (12-78); ALBUMIN 3.4 g/dL (3.4-5.0); ALCOHOL, BLOOD < 3 mg/dL (0-0); ALKALINE PHOSPHATASE 59 U/L (46-116); ASPARTATE AMINOTRANSFERASE 88 U/L (15-37); BILIRUBIN,DIRECT 0.1 mg/dL (0.0-0.2); BILIRUBIN,TOTAL 0.2 mg/dL (0.2-1.0); TOTAL PROTEIN, SERUM 9.5 g/dL (6.4-8.2)
--- NOTE | 2021-11-03 02:42 | NUR ---
CLINICALS FAXED TO INTAKE
--- NOTE | 2021-11-03 02:50 | NUR ---
PER [facility] KELLIE IZQUIERDO BLACKLISTED FROM FACILITY AND IS NOT ALLOWED READMISSION.
--- NOTE | 2021-11-03 04:33 | NUR ---
informed pt that he is not accepted at [facility] and offered to look for another facility but he only wants to go to [facility]. Pt does not want to be admitted any more and verbalizes that he is no longer suicidal.
--- NOTE | 2021-11-03 04:43 | NUR ---
Patient discharged to home in stable condition. Written and verbal after care instructions given. Patient verbalizes understanding of instruction. Pt ambulatory with a steady gait
[2021-11-03 04:44] VITALS: BP 138/72
[2021-11-03 07:09] LABS: BACTERIA,URINE None seen /HPF (None Seen); SQUAMOUS EPITHELIAL CELL,UR Rare /HPF (None Seen); WBC,URINE 0-2 /HPF (0-3)
== END 2021-11-03 04:44 | disposition home or self-care (01) ==
LOC: ER 23:55
DX: R45.851 Suicidal ideations (principal); U07.1 COVID-19; F20.9 Schizophrenia, unspecified; F31.9 Bipolar disorder, unspecified; F12.10 Cannabis abuse, uncomplicated; F15.10 Other stimulant abuse, uncomplicated; F17.200 Nicotine dependence, unspecified, uncomplicated
CPT/HCPCS: 36415; 80048; 80076; 80143; 80307; 80320; 81001; 85025; 87426; 99285; C9803; G0480

== ENCOUNTER 2021-11-10 18:49 | Emergency (ER) | payer MEDICAID ==
[~2021-11-10] VITALS: Ht 162.6 cm; Wt 65.3 kg
--- NOTE | 2021-11-10 18:49 | NUR ---
PT from street, +SI "i want to walk infront of the moving car" pt is aaox4, not in respiratory distress, v/s stable, kept rested and comfortable. will continue to monitor.
--- NOTE | 2021-11-10 19:00 | NUR ---
URINE SPECIMEN COLLECTED AND SENT TO LAB.
[2021-11-10 19:54] LABS: BILIRUBIN,DIRECT 0.2 mg/dL (0.0-0.2); BILIRUBIN,TOTAL 0.4 mg/dL (0.2-1.0); CALCIUM, SERUM 8.4 mg/dL (8.5-10.1); CREATININE 1.2 mg/dL (0.6-1.3); POTASSIUM 3.7 mmol/L (3.5-5.1); TOTAL PROTEIN, SERUM 9.6 g/dL (6.4-8.2)
--- NOTE | 2021-11-10 20:02 | NUR ---
covid antigen swab done and sent to lab
[2021-11-10 20:05] LABS: ALBUMIN 3.4 g/dL (3.4-5.0)
[2021-11-10 20:06] LABS: BILIRUBIN,URINE NEGATIVE (NEGATIVE); COLOR,URINE YELLOW (YELLOW); LEUKOCYTE ESTERASE ,URINE NEGATIVE (NEGATIVE); NITRITE, URINE NEGATIVE (NEGATIVE); PROTEIN,URINE NEGATIVE (NEGATIVE); UGLUCOSE NEGATIVE (NEGATIVE); UROBILINOGEN,URINE 0.2 EU/dL (0.2)
[2021-11-10 20:10] LABS: BASOPHILS % (AUTO) 0.6 % (0.0-2.0); EOSINOPHILS % (AUTO) 1.5 % (0.0-6.0); HEMATOCRIT 37 % (39-51); HEMOGLOBIN 12.6 g/dL (13.5-17.5); LYMPHOCYTES # (AUTO) 1.9 K/uL (0.8-4.8); LYMPHOCYTES % (AUTO) 29.2 % (20.0-44.0); MEAN CORPUSCULAR HGB CONC 35 g/dl (31.0-36.0); MEAN CORPUSCULAR VOLUME 85 fL (80-96); MONOCYTES # (AUTO) 0.6 K/uL (0.1-1.30); MONOCYTES % (AUTO) 10.1 % (2.0-12.0); NEUTROPHILS # (AUTO) 3.7 K/uL (1.8-8.9); NEUTROPHILS % (AUTO) 58.6 % (43.0-81.0); PLATELET COUNT (AUTO) 291 K/uL (150-450); WHITE BLOOD COUNT (AUTO) 6.4 K/uL (4.3-11.0)
--- NOTE | 2021-11-10 21:12 | NUR ---
PER LAB COVID POSITIVE
[2021-11-11] MEDS ORDERED: QUETIAPINE FUMARATE 100 MG TABLET PO SCH (03:30)
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
--- NOTE | 2021-11-11 14:00 | NUR ---
re-eval by Shawn KATZ, needs psych clinician to clear.
[2021-11-11 14:07] VITALS: BP 121/89
--- NOTE | 2021-11-11 18:10 | NUR ---
call from Sara, she want patient medicated with seroquel and can be discharged later on [facility] [id number] hold was already broken. Dr Trejo informed and asked to order seroquel.
--- NOTE | 2021-11-12 05:36 | NUR ---
Note christian in EDM - 11/12/21 at 0636 by EDGAR PT CAME AND VERBALIZED THAT HE WANT TO GO. HE VERBALIZED THAT HE IS NO LONGER FEELING SUICIDAL. PT WAS TO BE REFFERED TO MAJOR ASSEMBLER BUT HE IS NOT WILLING TO WAIT. MADE AWARE.
--- NOTE | 2021-11-12 11:15 | NUR ---
Spoke with STERLING Vasquez. She stated to have secuirty escort him out.
== END 2021-11-12 13:34 | disposition home or self-care (01) ==
LOC: ER 18:55
DX: R45.851 Suicidal ideations (principal); F19.10 Other psychoactive substance abuse, uncomplicated; F17.210 Nicotine dependence, cigarettes, uncomplicated; U07.1 COVID-19; Z59.02 Unsheltered homelessness; F15.10 Other stimulant abuse, uncomplicated; F20.9 Schizophrenia, unspecified; F31.9 Bipolar disorder, unspecified
CPT/HCPCS: 36415; 80048; 80076; 80143; 80307; 80320; 81003; 85025; 87426; 99285; 99406; C9803; G0480

== ENCOUNTER 2021-11-28 12:48 | Emergency (ER) | payer MEDICAID ==
[~2021-11-28] VITALS: Ht 162.6 cm; Wt 66.2 kg
--- NOTE | 2021-11-28 12:48 | NUR ---
PT SELF PRESENTS TO ED, AMBULATORY W. STEADY GAIT. PT STATES BEEN HAVING SUICIDAL IDEATION AND WANT TO OVERDOSE ON HIS PSYCH MEDS. PT WANTS TO BE ADMITTED VOLUNTARY TO [facility]. AAO, COOPERATIVE TO STAFF. STABLE VITALS, AWAITING MD MATTSON.
--- NOTE | 2021-11-28 12:50 | NUR ---
DR CABRAL AT BEDSIDE FOR EVAL.
--- NOTE | 2021-11-28 13:08 | NUR ---
IT HELP DESK MANAGER AT BEDSIDE FOR BLOOD DRAW.
[2021-11-28 13:17] LABS: BASOPHILS % (AUTO) 0.6 % (0.0-2.0); EOSINOPHILS % (AUTO) 1.8 % (0.0-6.0); HEMATOCRIT 35 % (39-51); HEMOGLOBIN 11.7 g/dL (13.5-17.5); LYMPHOCYTES % (AUTO) 29.8 % (20.0-44.0); MEAN CORPUSCULAR HGB CONC 33 g/dl (31.0-36.0); MEAN CORPUSCULAR VOLUME 86 fL (80-96); MONOCYTES # (AUTO) 0.7 K/uL (0.1-1.30); MONOCYTES % (AUTO) 10.7 % (2.0-12.0); NEUTROPHILS # (AUTO) 3.9 K/uL (1.8-8.9); NEUTROPHILS % (AUTO) 57.1 % (43.0-81.0); PLATELET COUNT (AUTO) 314 K/uL (150-450); RED BLOOD CELL COUNT(AUTO) 4.08 MIL/uL (4.5-6.0); WHITE BLOOD COUNT (AUTO) 6.9 K/uL (4.3-11.0)
[2021-11-28 14:02] LABS: CALCIUM, SERUM 8.4 mg/dL (8.5-10.1); CARBON DIOXIDE 27 mmol/L (21-32); CHLORIDE 102 mmol/L (98-107); CREATININE 1.2 mg/dL (0.6-1.3); GLUCOSE 149 mg/dL (74-106); POTASSIUM 4.1 mmol/L (3.5-5.1); SODIUM SERUM 134 mmol/L (136-145); UREA NITROGEN, BLOOD 20 mg/dL (7-18)
[2021-11-28 14:11] LABS: ALANINE AMINOTRANSFERASE 18 U/L (12-78); ALBUMIN 2.8 g/dL (3.4-5.0); ALCOHOL, BLOOD < 3 mg/dL (0-0); ALKALINE PHOSPHATASE 61 U/L (46-116); ASPARTATE AMINOTRANSFERASE 10 U/L (15-37); BILIRUBIN,DIRECT 0.1 mg/dL (0.0-0.2); TOTAL PROTEIN, SERUM 8.8 g/dL (6.4-8.2)
[2021-11-28 14:15] LABS: BILIRUBIN,URINE NEGATIVE (NEGATIVE); COLOR,URINE YELLOW (YELLOW); LEUKOCYTE ESTERASE ,URINE NEGATIVE (NEGATIVE); NITRITE, URINE NEGATIVE (NEGATIVE); PROTEIN,URINE NEGATIVE (NEGATIVE); UGLUCOSE NEGATIVE (NEGATIVE); UROBILINOGEN,URINE 0.2 EU/dL (0.2)
[2021-11-28 14:24] LABS: BILIRUBIN,TOTAL 0.1 mg/dL (0.2-1.0)
[2021-11-28 14:27] LABS: ACETAMINOPHEN 0 ug/ml (10-30)
--- NOTE | 2021-11-28 15:18 | NUR ---
FAXED CLINICALS TO [facility]
[2021-11-28 15:20] LABS: BACTERIA,URINE None seen /HPF (None Seen); SQUAMOUS EPITHELIAL CELL,UR 0-2 /HPF (None Seen); WBC,URINE 0-2 /HPF (0-3)
--- NOTE | 2021-11-28 22:09 | NUR ---
ADLS DONE; PT AMBULATORY & CONTINENT. OFFERED PT FOOD; TOLERATING WELL.
--- NOTE | 2021-11-29 03:28 | NUR ---
FOLLOWED UP WITH [facility] REGARDING TRANSFER. PT IS NOT ACCEPTED AT ANY [facility] D/T PT IS BANNED PER INTAKE
[2021-11-29 07:10] VITALS: BP 129/71
--- NOTE | 2021-11-29 07:22 | NUR ---
PER PT HE WANTS TO BE DISCHARGED AND HE WILL GO TO [facility]. ER AWARE.
--- NOTE | 2021-11-29 07:40 | NUR ---
Patient discharged to home in stable condition. Written and verbal after care instructions given. Patient verbalizes understanding of instruction.
== END 2021-11-29 07:41 | disposition home or self-care (01) ==
LOC: ER 12:57
DX: R45.851 Suicidal ideations (principal); Z53.29 Procedure and treatment not carried out because of patient's decision for other reasons; Z20.822 Contact with and (suspected) exposure to COVID-19; Z59.00 Homelessness unspecified; F31.9 Bipolar disorder, unspecified; G40.909 Epilepsy, unspecified, not intractable, without status epilepticus; F20.9 Schizophrenia, unspecified; F19.10 Other psychoactive substance abuse, uncomplicated; F17.200 Nicotine dependence, unspecified, uncomplicated
CPT/HCPCS: 36415; 80048; 80076; 80143; 80307; 80320; 81001; 85025; 87426; 99285; C9803; G0480

== ENCOUNTER 2021-12-09 12:54 | Emergency (ER) | payer MEDICAID ==
[~2021-12-09] VITALS: Ht 170.2 cm; Wt 68.1 kg
--- NOTE | 2021-12-09 13:03 | NUR ---
SEEN BY DR CABRAL
--- NOTE | 2021-12-09 13:55 | NUR ---
COVID ANTIGEN SENT TO LAB.
--- NOTE | 2021-12-09 14:31 | NUR ---
URINE COLLECTED AND SENT TO THE LAB
[2021-12-09 15:15] LABS: BILIRUBIN,URINE NEGATIVE (NEGATIVE); COLOR,URINE YELLOW (YELLOW); LEUKOCYTE ESTERASE ,URINE NEGATIVE (NEGATIVE); NITRITE, URINE NEGATIVE (NEGATIVE); PROTEIN,URINE NEGATIVE (NEGATIVE); UGLUCOSE NEGATIVE (NEGATIVE); UROBILINOGEN,URINE 0.2 EU/dL (0.2)
[2021-12-09 15:42] LABS: BACTERIA,URINE None seen /HPF (None Seen); RBC,URINE 0-2 /HPF (0-2); SQUAMOUS EPITHELIAL CELL,UR None Seen /HPF (None Seen); WBC,URINE 0-1 /HPF (0-3)
[2021-12-09 16:09] LABS: BASOPHILS # (AUTO) 0.1 K/uL (0.0-0.2); EOSINOPHILS % (AUTO) 0.8 % (0.0-6.0); HEMATOCRIT 37 % (39-51); HEMOGLOBIN 12.4 g/dL (13.5-17.5); LYMPHOCYTES # (AUTO) 2.3 K/uL (0.8-4.8); MEAN CORPUSCULAR HGB CONC 34 g/dl (31.0-36.0); MEAN CORPUSCULAR VOLUME 84 fL (80-96); MONOCYTES # (AUTO) 0.8 K/uL (0.1-1.30); MONOCYTES % (AUTO) 10.2 % (2.0-12.0); NEUTROPHILS # (AUTO) 4.6 K/uL (1.8-8.9); PLATELET COUNT (AUTO) 352 K/uL (150-450); RED BLOOD CELL COUNT(AUTO) 4.35 MIL/uL (4.5-6.0); WHITE BLOOD COUNT (AUTO) 7.8 K/uL (4.3-11.0)
[2021-12-09 16:15] LABS: CALCIUM, SERUM 9.1 mg/dL (8.5-10.1); CARBON DIOXIDE 31 mmol/L (21-32); CHLORIDE 100 mmol/L (98-107); CREATININE 1.3 mg/dL (0.6-1.3); GLUCOSE 104 mg/dL (74-106); POTASSIUM 4.1 mmol/L (3.5-5.1); SODIUM SERUM 133 mmol/L (136-145); UREA NITROGEN, BLOOD 18 mg/dL (7-18)
[2021-12-09 16:24] LABS: ALANINE AMINOTRANSFERASE 32 U/L (12-78); ALBUMIN 3.5 g/dL (3.4-5.0); ALCOHOL, BLOOD < 3 mg/dL (0-0); ALKALINE PHOSPHATASE 77 U/L (46-116); ASPARTATE AMINOTRANSFERASE 37 U/L (15-37); BILIRUBIN,DIRECT 0.1 mg/dL (0.0-0.2); BILIRUBIN,TOTAL 0.2 mg/dL (0.2-1.0); TOTAL PROTEIN, SERUM 10.5 g/dL (6.4-8.2)
[2021-12-09 16:27] LABS: ACETAMINOPHEN < 0 ug/ml (10-30)
--- NOTE | 2021-12-09 16:56 | NUR ---
Maris gonzales in ED - 12/09/21 at 1701 by HEMALATHA PT JUST DECIDED TO LEAVE STATES WILL GO TO ANOTHER HOSPITAL. ARMAND ACRREON/JOLEEN. DR NUNES AWARE. PT VERBALLY DISCHARGE IN STABLE CONDITION.
[2021-12-09 16:58] VITALS: BP 142/80
--- NOTE | 2021-12-09 17:01 | NUR ---
PT NO LONGER IN ED HOLDING ROOM. PT ELOPED
== END 2021-12-09 17:02 | disposition left against medical advice (07) ==
LOC: ER 13:00
DX: R45.851 Suicidal ideations (principal); Z20.822 Contact with and (suspected) exposure to COVID-19; Z53.20 Procedure and treatment not carried out because of patient's decision for unspecified reasons; F20.9 Schizophrenia, unspecified; F31.9 Bipolar disorder, unspecified; Z88.8 Allergy status to other drugs, medicaments and biological substances; Z86.69 Personal history of other diseases of the nervous system and sense organs
CPT/HCPCS: 36415; 80048; 80076; 80143; 80307; 80320; 81001; 85025; 87426; 99285; C9803; G0480

== ENCOUNTER 2022-10-09 05:55 | Emergency (ER) | payer MEDICAID ==
[~2022-10-09] VITALS: Ht 162.6 cm; Wt 59.0 kg
--- NOTE | 2022-10-09 06:33 | NUR ---
BIB AND [employer] TO ER BED 18. AAOX4. NOT IN RESP DISTRESS. AMBULATORY. BROUGHT IN FOR SUICIDAL IDEATION BUT NO SPECIFIC PLAN. PT IS SEEKING MEDICAL CLEARANCE FOR VOLUNTARY ADMISSION. PT DENIES HOMICIDAL IDEATION. PT IS PLACED IN A GOWN, BELONGINGS TAKEN AND PLACED IN LOCKER. SITTER IS WITHIN SIGHT. MD WAS AT THE BEDSIDE. URINE AND COVID SWAB COLLECTED. PHLEB AT BEDSIDE FOR BLOOD DRAW.
[2022-10-09 08:07] LABS: BILIRUBIN,URINE NEGATIVE (NEGATIVE); COLOR,URINE YELLOW (YELLOW); LEUKOCYTE ESTERASE ,URINE NEGATIVE (NEGATIVE); NITRITE, URINE NEGATIVE (NEGATIVE); PROTEIN,URINE NEGATIVE (NEGATIVE); UGLUCOSE NEGATIVE (NEGATIVE); UROBILINOGEN,URINE 0.2 EU/dL (0.2)
[2022-10-09 08:38] LABS: BACTERIA,URINE Rare /HPF (None Seen)
[2022-10-09 08:39] LABS: SQUAMOUS EPITHELIAL CELL,UR Few /HPF (None Seen)
[2022-10-09 08:55] LABS: BASOPHILS % (AUTO) 0.4 % (0.0-2.0); EOSINOPHILS % (AUTO) 3.1 % (0.0-6.0); HEMATOCRIT 39 % (39-51); HEMOGLOBIN 12.9 g/dL (13.5-17.5); LYMPHOCYTES # (AUTO) 1.3 K/uL (0.8-4.8); MEAN CORPUSCULAR HGB CONC 33 g/dl (31.0-36.0); MEAN CORPUSCULAR VOLUME 85 fL (80-96); MONOCYTES # (AUTO) 0.5 K/uL (0.1-1.30); MONOCYTES % (AUTO) 7.9 % (2.0-12.0); NEUTROPHILS # (AUTO) 4.5 K/uL (1.8-8.9); NEUTROPHILS % (AUTO) 68.6 % (43.0-81.0); PLATELET COUNT (AUTO) 330 K/uL (150-450); RED BLOOD CELL COUNT(AUTO) 4.63 MIL/uL (4.5-6.0); WHITE BLOOD COUNT (AUTO) 6.6 K/uL (4.3-11.0)
[2022-10-09 09:02] LABS: CALCIUM, SERUM 8.6 mg/dL (8.5-10.1); CARBON DIOXIDE 28 mmol/L (21-32); CHLORIDE 101 mmol/L (98-107); CREATININE 1.1 mg/dL (0.6-1.3); GLUCOSE 91 mg/dL (74-106); POTASSIUM 3.6 mmol/L (3.5-5.1); SODIUM SERUM 135 mmol/L (136-145); UREA NITROGEN, BLOOD 14 mg/dL (7-18)
[2022-10-09 09:14] LABS: ALANINE AMINOTRANSFERASE 30 U/L (12-78); ALCOHOL, BLOOD < 3 mg/dL (0-0); ALKALINE PHOSPHATASE 70 U/L (46-116); ASPARTATE AMINOTRANSFERASE 31 U/L (15-37); BILIRUBIN,DIRECT 0.1 mg/dL (0.0-0.2); BILIRUBIN,TOTAL 0.3 mg/dL (0.2-1.0); TOTAL PROTEIN, SERUM 9.6 g/dL (6.4-8.2)
[2022-10-09 09:16] LABS: ACETAMINOPHEN 10 ug/ml (10-30)
--- NOTE | 2022-10-09 12:15 | NUR ---
FAXED CLINICALS TO [facility].
--- NOTE | 2022-10-09 13:59 | NUR ---
REFAXED CLINICALS TO [facility].
--- NOTE | 2022-10-09 16:13 | NUR ---
Discharge Note: BRITTON was notified that pt. was not accepted to [facility]. BRITTON met with pt. at bedside. The pt. is a 42 year old Black male who came in seeking voluntary psychiatric admission to [facility]. Pt. currently denies SI/HI and denies hallucinations. BRITTON notified pt. that he was not accepted to [facility]. BRITTON provided pt. with outpatient mental health referrals and pt. refused them and pt. became upset and stated that [facility] & [facility] are racist and that is why we are not helping him. BRITTON validated his feelings of frustration and SW offered to help pt. with DC plan. SWexplored where pt. would like to go upon discharge and offered chcf placement. Pt. refused and stated he lives "in those new homes" ad would like to get there. Pt. could not provide address. BRITTON provided pt. with homeless resources(winter chcf, showers, food garcía) TAP card, clothing and pt. refused all and had aggressive mood & affect. SWdiscussed case with Grace LEONARD and RN, Paty. BRITTON left TAP card and resources with RN if pt. decides to accept them. Resources offered include: Year-round shelters: [facility] [address] [place], [place] [id number] ; [facility] [address] [place] [address]; [facility] Hljzbss5216 [facility]. [facility] [id number] Hygiene: [facility]: [address] [place] ; [facility] [address] [facility] ; [facility] [address] [facility] . Food Resources: [place] [facility]- [address] [place]; Meet Each Need with Dignity ([facility]) [address] [place]; [facility] 5[address] [facility]; [facility] [address] [place]. Mental Health resources provided: [facility] [address] [place], [place] [id number] ; [facility] [address], [place] [address] ; [facility] Mental [facility] [address] [place] [address] ; [facility] Health Neligh [place], [place] [id number] Healthcare Clinics: [facility] [address] Ellie Alcaraz [facility], [address] [place]. [place] ; [facility] [address] [facility] [address] [place] [address]; [facility] [address] [place] [phone]) [phone] Counseling--Outpatient [facility] [address] [facility], [place] [address] (Specializes in in-depth psychotherapy for emotional distress: anxiety, depression, interpersonal conflicts, life transitions, childhood abuse) [facility] [address] [place] [address] (Assist with solving problem marital difficulties, separation & divorce, aging parents, & grief, chronic & terminal illness) [facility] [address] [place] [address] (Deal with loss & grief, anxiety, marital difficulties) Homebound/Mental Health Services [address], [address] [place] [address] (Provide in-home mental services to people who are incapable of leaving their homes) [facility] Senior Service/Resource Center [address] [place] [address] [facility] [address] [facility] Center[facility] Bailee. [place] [address] PSYCHIATRIC OUTPATIENT SERVICES [facility] Partial Hospitalization and Intensive Outpatient Program (Managed Care and [place] Only)[address]. [facility] [phone] [facility] Partial Hospitalization and Outpatient [id number] Donald [facility]. [address] [place], [place] [phone] ELLIE ALCARAZ [facility] [id number] Jacinta [facility]. [address] [place], [place] [phone] [facility] Johnnie Partial Hospitalization and Outpatient [id number] Emnancy Griffiths Ellie Alcaraz, [phone] Substance Abuse resources provided included: [facility] Substance Abuse Self-Helpline ([facility]) ; CRI -HELP [address] [facility]. [place] [address] ; [facility] Neligh [address] [facility] [address] ; [facility] Rehabilitation [facility] [address] [facility] [address] ; [facility] 400 [facility] [phone] ; [facility] 4940 [facility] [address] ; [facility] 909 [facility] [phone] ; [facility] Substance Abuse Helpline([facility] ; [facility] ; Shiv[facility] [place] [facility] [place]; [facility] [place]; [facility] Ellie Alcaraz; [facility]; [place]; [facility] Neligh [place]; [facility] [place]; Alcoholics Anonymous -[facility]; [place] ; Marijuana Anonymous -[facility]; Narcotics Anonymous www.na.org;
--- NOTE | 2022-10-09 16:38 | NUR ---
Patient discharged to home/homeless in stable condition. Homeless waiver/resources provided by June social science professor. Written and verbal after care instructions given. Patient verbalizes understanding of instruction. Tap card provided to pt. All belongings returned to pt.
[2022-10-09 16:39] VITALS: BP 132/68
--- NOTE | 2022-10-09 16:39 | NUR ---
Pt denies si/hi nor auditory/visual hallucinations.
[2022-10-10 05:53] LABS: BASOPHILS % (MANUAL) 0 % (0.0-2.0); EOSINOPHILS % (MANUAL) 1 % (0-4); LYMPHOCYTES % (MANUAL) 21 % (16-48); MONOCYTES % (MANUAL) 16 % (0-11.0); NEUTROPHILS % (MANUAL) 61 (42-76)
== END 2022-10-09 16:41 | disposition home or self-care (01) ==
LOC: ER 06:02
DX: R45.851 Suicidal ideations (principal); Z59.00 Homelessness unspecified; Z20.822 Contact with and (suspected) exposure to COVID-19; R31.29 Other microscopic hematuria; F20.9 Schizophrenia, unspecified; F31.9 Bipolar disorder, unspecified; Z88.8 Allergy status to other drugs, medicaments and biological substances; R03.0 Elevated blood-pressure reading, without diagnosis of hypertension
CPT/HCPCS: 99285; 85025; 80048; 80076; 85007; 81001; 36415; 87426; 80143; 80320; 80307; C9803; G0480

== ENCOUNTER 2023-03-08 01:34 | Emergency (ER) | payer MEDICAID ==
[~2023-03-08] VITALS: Ht 177.8 cm; Wt 90.7 kg
[2023-03-08] MEDS ORDERED: AMOXICILLIN TRIHYDRATE 250 MG CAPSULE ONE (01:42)
[2023-03-08] MEDS ORDERED: KETOROLAC TROMETHAMINE INJ 60 MG/2 ML VIAL IM ONE ×2 (01:42→02:00)
[2023-03-08] MEDS ORDERED: NABU-141 PO (01:44)
[2023-03-08] MEDS ORDERED: AMOX500C2 PO (01:44)
[2023-03-08 01:45] VITALS: BP 153/100
--- NOTE | 2023-03-08 01:45 | NUR ---
ADIN FROM [facility] C/O R EAR PAIN X3 DAYS
--- NOTE | 2023-03-08 01:49 | NUR ---
Patient discharged to home in stable condition. Written and verbal after care instructions given. Patient verbalizes understanding of instruction.
[2023-03-08] MEDS ORDERED: AMOXICILLIN TRIHYDRATE 500 MG CAPSULE PO ONE (02:00)
== END 2023-03-08 01:53 | disposition home or self-care (01) ==
LOC: ER 01:36
DX: H66.91 Otitis media, unspecified, right ear (principal); F32.A Depression, unspecified; F20.9 Schizophrenia, unspecified; F17.210 Nicotine dependence, cigarettes, uncomplicated; Z79.899 Other long term (current) drug therapy; Z60.2 Problems related to living alone; Z88.1 Allergy status to other antibiotic agents
CPT/HCPCS: 99283; 99406; J1885

== ENCOUNTER 2023-08-15 15:22 | Emergency (ER) | payer MEDICAID, OTHER ==
[~2023-08-15] VITALS: Ht 162.6 cm; Wt 68.0 kg
[~2023-08-15 15:22] MED LIST changes: +AMOX500C2 PO; +NABU-141 PO
[2023-08-15] MEDS ORDERED: CYCL10TA9 PO (15:48)
[2023-08-15] MEDS ORDERED: CYCLOBENZAPRINE 10 MG TABLET PO ONE (16:00)
[2023-08-15] MEDS ORDERED: CYCLOBENZAPRINE 10 MG TABLET ONE (16:01)
[2023-08-15 16:28] VITALS: BP 123/78; TEMP 98.3; O2SAT 98
== END 2023-08-15 16:28 | disposition home or self-care (01) ==
LOC: ER 15:28
DX: M62.838 Other muscle spasm (principal); F31.9 Bipolar disorder, unspecified; F20.9 Schizophrenia, unspecified; F17.200 Nicotine dependence, unspecified, uncomplicated; Z79.899 Other long term (current) drug therapy; Z60.2 Problems related to living alone; Z88.1 Allergy status to other antibiotic agents